=== PATIENT | male | born 1940 | race Caucasian/White ===

== ENCOUNTER 2017-03-04 16:07 | Emergency (ER) | payer MEDICARE, OTHER ==
[2016-12-18 12:19] VITALS: Ht 188 cm; Wt 96.8 kg
[~2017-03-04] VITALS: Ht 188 cm; Wt 96.8 kg
[~2017-03-04 16:07] MED LIST: AMLO2.5T74 PO; ASPI-715 PO; ASPI-757 PO; ASPI-816 PO; BLOO-1318 ASDIRECTED; CA C1TAB9 PO; CALC-703 PO; CHOL200022 PO; CIPR-326 PO; CITA-128 PO; CITA-155 PO; CLAR-1 PO; CLOP75TA PO; CYCL10TA29 PO; DICL100G39 TOP; DICL100G39 TP; DICL1TAB52 PO; DONE23TA PO; DONE23TA3 PO; DONE5TAB29 PO; DONE5TAB33 FT; DUTA1CPM3 PO; FISH OIL 1,2001 CAP PO; FISHOIL PO; FLUT16SP19 NS; GABA-1 PO; GABA-490 PO; GABA-549 PO; GEMF600T91 PO; HUM75/25I SUBQ; HUMALOG SC; HYDR-4309 PO; HYDR2TAB74 PO; IBUP-1618 PO; INDO50CA92 PO; INSU100I24 SQ; INSU100I24 SUBQ; INSU100V24 SQ; IRO150 PO; LANI SC; LANI SQ; LANI SUBQ; LEVO50TA86 PO; LISI-347 PO; LOR5 PO; LOR5/325 PO; LORA10TA2 PO; MELO-149 PO; MELO-150 PO; MELO-207 PO; MEMA10TA18 PO; MEMA28CA PO; MET10 PO; METF-410 PO; METF-420 PO; METO-253 PO; METO50TA19 PO; METOPROLOL ER PO; METR-1 PO; METXL50 PO; MON10 PO; MULT1CAP59 PO; NITR0.4T3 SL; OLME40TA17 PO; OMEG-11 PO; OMEG500C5 PO; OMEG500C7 PO; OMEP-218 PO; OMEP40CA48 PO; ONDA4TAB PO; ONE A DAY PO; PER PO; PHENA200 PO; PRAM0.1225 PO; PRAM0.2524 PO; PRAV20TA66 PO; PRED-1 PO; PROM-110 PO; RAMI10CA72 PO; RAMI5CAP72 PO; RIVA1PAT9 TD; RIVA20TA PO; RIVA3CAP PO; SIMV-42 PO; SPIR25TA78 PO; SULF-198 PO; TRAZ-156 PO; TRAZ50 PO; TRIA15CR40 TP; VALE100C2 PO; VENL25TA29 PO; VENL50TA22 PO
--- NOTE | 2017-03-04 16:11 | ER Report ---
History and Physical Time Seen By MD: 16:11 HPI/ROS CC: Influenza exposure HPI: 76 year old Male with a past medical history of type II diabetes, Alzheimer's, chest pain, gastroenteritis, H. pylori, hepatitis B, pulmonary nodule, Mobitz type II second-degree block, BPH. Patient presents to the emergency department as his was just here and was diagnosed with influenza. Patient has had generalized body aches for 3-4 days. Generalized body aches. No nausea or vomiting. He is eating fine no diarrhea. Patient is not Complaining of chest pain chest pressure, shortness of breath, diaphoresis. Patient with Alzheimer's and it is difficult to get any more pertinent information. ROS: 12 point review of systems essentially negative other than what's mentioned in history of present illness. NURSES AND OLD MEDICAL RECORDS: Reviewed PMH: Reviewed SURGICAL HX: Reviewed FAMILY HX: Noncontributory SOCIAL HX: Patient denies smoking alcohol or illicit drugs. He is escorted by his daughter. VITAL SIGNS: Reviewed CONSTITUTIONAL: 76-year-old male in minimal distress. PHYSICAL EXAM: HEENT: Pupils equal round reactive to light and accommodate, EOMI, tympanic membranes pearly white umbo present with good light reflex. Lips dry mucous membranes moist gums nonbleeding uvula midline and rises equally with phonation, oropharynx noninjected, teeth intact. NECK: Neck supple, thyroid not appreciated, anterior and posterior cervical lymphadenopathy not appreciated. Trachea midline and rises equally with phonation. CARDIAC: S1-S2 regular rate rhythm no murmurs rubs or gallops. LUNGS: Lungs clear bilaterally posteriorly in all osborn. Good air movement. ABDOMEN: Abdomen soft, nondistended, bowel sounds active in all 4 quadrants, no bruits noted, no CVA tenderness. MUSCULOSKELETAL: Strength 5 out of 5 x 4 extremities, no deformities noted. NEUROLOGIC: Patient alert and oriented by 3 Allergies: Coded Allergies: Penicillins (Verified Allergy, Mild, HIVES, 09/21/16) niacin (Verified Allergy, Mild, 09/21/16) Home Meds Active Scripts Insulin Npl/Insulin Lispro (HUMALOG MIX 75-25 KWIKPEN) 100 Unit/1 Ml Insuln.pen , 35 UNIT SUBQ TIDCF for 90 Days, #6 BOX 4 Refills Pt to increase to 36-37 if BS above 150 Prov:WERO GOSS MD 03/04/17 Omeprazole (OMEPRAZOLE) 40 Mg Capsule.dr, 1 CAP PO QDAY for 90 Days, #90 CAP 4 Refills Prov:WERO GOSS MD 03/04/17 Memantine Hcl (NAMENDA XR) 28 Mg Cap.spr.24, 1 CAP PO QDAY, #90 CAP Prov:WERO GOSS MD 03/04/17 Donepezil Hcl (ARICEPT) 23 Mg Tablet, 1 TAB PO QDAY, #90 TAB Prov:WERO GOSS MD 03/04/17 Pramipexole Di-Hcl (MIRAPEX) 0.25 Mg Tablet, 1 TAB PO QHS for 90 Days, #90 TAB 4 Refills Prov:WERO GOSS MD 03/04/17 Pravastatin Sodium (PRAVASTATIN SODIUM) 20 Mg Tablet, 1 TAB PO HS for 90 Days, # 90 TAB 4 Refills Prov:WERO GOSS MD 03/04/17 Reported Medications Blood Sugar Diagnostic (ONE TOUCH ULTRA TEST STRIPS) 1 Each Strip, 1 EACH ASDIRECTED QID Y for morning and before meals, STRIP 12/17/16 Nitroglycerin (NITROGLYCERIN) 0.4 Mg Tab.subl, 1 TAB SL Q5MIN Y for CHEST PAIN May repeat 3 times in 15 min 12/17/16 Multivitamin (MULTIVITAMINS) 1 Each Capsule, 1 EACH PO QDAY 12/17/16 Levothyroxine Sodium (LEVOTHYROXINE SODIUM) 50 Mcg Tablet, 1 TAB PO QDAY 12/17/16 Hydrocodone Bit/Acetaminophen (HYDROCODON-ACETAMINOPHEN 5-325) 1 Each Tablet, 1 EACH PO HS Y for foot pain, TAB 12/17/16 Aspirin (ASPIRIN) 325 Mg Tablet, 1 TAB PO QDAY, TAB 10/20/15 Cholecalciferol (Vitamin D3) (VITAMIN D) 2,000 Unit Tablet, 1 TAB PO DAILY 09/05/15 Fluticasone Prop 50 Mcg Ns (FLONASE 50 MCG NS) 16 Gm [place].susp, 2 SPRAY NS QDAY , BOT 2 sprays per nostril, per day 09/05/15 Discontinued Reported Medications Prednisone 10 Mg Tab (PREDNISONE 10 MG TAB) 10 Mg Tablet, 1 TAB PO QDAY, TAB 1 Refill 01/19/17 Trazodone Hcl (TRAZODONE HCL) 50 Mg Tablet, 1 TAB PO QHS 12/21/16 Citalopram Hydrobromide (CELEXA) 10 Mg Tablet, 1 TAB PO QDAY 12/21/16 Triamcinolone Acetonide 0.1% Cr 15 Gm Tube (TRIAMCINOLONE ACETONIDE 0.1% CREAM) 15 Gm Cream..g., 1 GHANSHYAM TP BID for to affected area, TUBE 12/17/16 Hx Smoking: Yes Smoking Status: Former Smoker Exposure to Second Hand Smoke?: No Hx Substance Use Disorder: No Hx Alcohol Use: No Constitutional Vital Sign - Last 24 Hours 03/04/17 03/04/17 03/04/17 03/04/17 16:14 16:18 16:22 16:30 Temp 98.1 Pulse 87 86 Resp 18 11 B/P (MAP) 117/68 125/76 (92) 117/68 (84) Pulse Ox 92 94 O2 Delivery Room Air 03/04/17 03/04/17 03/04/17 03/04/17 16:37 16:52 17:00 17:05 Pulse 86 ??? Resp 15 B/P (MAP) ???/??? (1665) 115/65 (82) Pulse Ox 93 03/04/17 03/04/17 03/04/17 17:07 17:15 17:22 Pulse 76 74 Resp 15 B/P (MAP) 115/72 (86) Pulse Ox 91 94 Medical Decision Making Data Points Result Diagram: 03/04/17 1630 03/04/17 1630 Laboratory Hematology Test 03/04/17 16:20 03/04/17 16:30 Influenza Virus Type A (PCR) Negative (NEGATIVE) Influenza Virus Type B (PCR) Positive (NEGATIVE) Red Blood Count 4.54 M/uL (4.00-5.60) Mean Corpuscular Volume 93.8 fL (80.0-96.0) Mean Corpuscular Hemoglobin 32.3 pg (26.0-33.0) Mean Corpuscular Hemoglobin Concent 34.4 g/dL (32.0-36.0) Red Cell Distribution Width 13.7 % (11.5-14.5) Mean Platelet Volume 7.9 fL (7.2-11.1) Neutrophils (%) (Auto) 65.6 % (39.4-72.5) Lymphocytes (%) (Auto) 20.7 % (17.6-49.6) Monocytes (%) (Auto) 12.7 % (4.1-12.4) Eosinophils (%) (Auto) 0.4 % (0.4-6.7) Basophils (%) (Auto) 0.6 % (0.3-1.4) Nucleated RBC Relative Count (auto) 0.2 /100WBC Neutrophils # (Auto) 2.3 K/uL (2.0-7.4) Lymphocytes # (Auto) 0.7 K/uL (1.3-3.6) Monocytes # (Auto) 0.5 K/uL (0.3-1.0) Eosinophils # (Auto) 0.0 K/uL (0.0-0.5) Basophils # (Auto) 0.0 K/uL (0.0-0.1) Nucleated RBC Absolute Count (auto) 0.01 K/uL Peripheral Blood Smear No Y/N Sodium Level 138 mmol/L (137-145) Potassium Level 3.7 mmol/L (3.5-5.0) Chloride Level 101 mmol/L (98-107) Carbon Dioxide Level 24 mmol/L (22-30) Blood Urea Nitrogen 13 mg/dl (9-21) Creatinine 1.00 mg/dl (0.66-1.25) Glomerular Filtration Rate Calc > 60.0 Random Glucose 203 mg/dl (75-110) Calcium Level 9.2 mg/dl (8.4-10.2) Total Bilirubin 1.0 mg/dl (0.2-1.3) Aspartate Amino Transf (AST/SGOT) 19 U/L (0-35) Alanine Aminotransferase (ALT/SGPT) 33 U/L (0-56) Alkaline Phosphatase 107 U/L (0-126) Troponin I 0.042 ng/ml Total Protein 6.6 gm/dl (6.3-8.2) Albumin 3.9 g/dl (3.5-5.0) Chemistry Test 03/04/17 16:20 03/04/17 16:30 Influenza Virus Type A (PCR) Negative (NEGATIVE) Influenza Virus Type B (PCR) Positive (NEGATIVE) White Blood Count 3.6 k/uL (4.5-11.0) Red Blood Count 4.54 M/uL (4.00-5.60) Hemoglobin 14.7 g/dL (14.0-18.0) Hematocrit 42.6 % (42.0-52.0) Mean Corpuscular Volume 93.8 fL (80.0-96.0) Mean Corpuscular Hemoglobin 32.3 pg (26.0-33.0) Mean Corpuscular Hemoglobin Concent 34.4 g/dL (32.0-36.0) Red Cell Distribution Width 13.7 % (11.5-14.5) Platelet Count 116 K/uL (150-450) Mean Platelet Volume 7.9 fL (7.2-11.1) Neutrophils (%) (Auto) 65.6 % (39.4-72.5) Lymphocytes (%) (Auto) 20.7 % (17.6-49.6) Monocytes (%) (Auto) 12.7 % (4.1-12.4) Eosinophils (%) (Auto) 0.4 % (0.4-6.7) Basophils (%) (Auto) 0.6 % (0.3-1.4) Nucleated RBC Relative Count (auto) 0.2 /100WBC Neutrophils # (Auto) 2.3 K/uL (2.0-7.4) Lymphocytes # (Auto) 0.7 K/uL (1.3-3.6) Monocytes # (Auto) 0.5 K/uL (0.3-1.0) Eosinophils # (Auto) 0.0 K/uL (0.0-0.5) Basophils # (Auto) 0.0 K/uL (0.0-0.1) Nucleated RBC Absolute Count (auto) 0.01 K/uL Peripheral Blood Smear No Y/N Glomerular Filtration Rate Calc > 60.0 Calcium Level 9.2 mg/dl (8.4-10.2) Total Bilirubin 1.0 mg/dl (0.2-1.3) Aspartate Amino Transf (AST/SGOT) 19 U/L (0-35) Alanine Aminotransferase (ALT/SGPT) 33 U/L (0-56) Alkaline Phosphatase 107 U/L (0-126) Troponin I 0.042 ng/ml Total Protein 6.6 gm/dl (6.3-8.2) Albumin 3.9 g/dl (3.5-5.0) EKG/Imaging Imaging Chest x-ray: Impression: No cardiopulmonary disease. Chronic changes. ED Course/Re-evaluation ED Course Patient positive for influenza B. It has been 3-4 days therefore Tamiflu will not be given. ECG shows no acute changes. Patient is with malaise he did receive a liter normal saline. Other labs are within normal limits. Patient did have a near syncopal episode. Patient did not hit his head. No CT of the brain was warranted. Patient is to follow-up with PCP Dr. Goss. I and the staff wanted to thank you for allowing us to take care of your needs today in the emergency department at [facility]. We have tried to answer all of your questions and concerns. Please feel free to return to the emergency department for any further concerns or unanswered questions. Re-evaluation Medical decision-making including but not excluded influenza B as patient was exposed to be by his , pneumonia, gastroenteritis. Decision to Disposition Date: Mar 04, 2017 Decision to Disposition Time: 17:58 Depart Departure Latest Vital Signs Vital Signs Date Time Temp Pulse Resp B/P (MAP) Pulse Ox O2 Delivery O2 Flow Rate FiO2 03/04/17 17:22 74 15 94 03/04/17 17:15 115/72 (86) 03/04/17 16:14 98.1 Room Air Impression: Primary Impression: Influenza B Condition: Condition Unchanged Disposition: HOME OR SELF-CARE Referrals: WERO GOSS MD (PCP) Patient Instructions: H1N1 Influenza (ED) Additional Instructions: Had influenza B. It's been over 24 hours therefore Tamiflu be effective. EKG has not changed from previous EKG. I discussed the case with Dr. Goss. Follow up with her in her office. Chest x-ray did not show any pneumonia. I and the staff wanted to thank you for allowing us to take care of your needs today in the emergency department at [facility]. We have tried to answer all of your questions and concerns. Please feel free to return to the emergency department for any further concerns or unanswered questions. LOVE GONZALEZ MD Mar 04, 2017 16:11
[2017-03-04 16:45] LABS: PLATELET COUNT, AUTOMATED 116 K/uL (150-450)
[2017-03-04] MEDS ORDERED: NS(*) 0.9% 1000 ML BAG 1,000 ML IV ONE (16:45)
--- NOTE | 2017-03-04 17:52 | RADIOLOGY IMAGING REPORT ---
FAC[place] [facility] [place]IENT NAME: Pato Gutierrez : 1940 MR: [id number] V: [id number] EXAM DATE: ORDERING PHYSICIAN: LOVE GONZALEZ TECHNOLOGIST: Location: [facility] [place] Patient: Pato Gutierrez : 1940 Visit/Account:[id number] Date of Sevice: 03/04/2017 CHEST SINGLE AP Provided history: dizziness Additional pertinent history: none COMPARISON STUDIES: 12/17/16 FINDINGS: Support lines and tubes: None. Lungs / pleura / wilber: There are mild coarse increased markings in the lung bases, similar to prior exam. No lobar infiltrate or effusion. Heart / mediastinum /vessels: Negative Nodules / masses: None significant Bones / body wall: Moderate size superior surface spur over the right AC joint. Lower neck / Upper abdomen: Negative IMPRESSION: Stable chronic bibasilar changes. No new acute cardiopulmonary disease. Report Dictated By: Jelani Weiss MD at 03/04/2017 5:47 PM Report E-Signed By: Jelani Weiss MD at 03/04/2017 5:48 PM WSN:[id number]
--- NOTE | 2017-03-04 23:09 | EKG ---
FACILITY: [facility] - [place] PATIENT NAME: DANIELLE REICH : [id number] MR: [id number] V: [id number] EXAM DATE: ORDERING PHYSICIAN: LOVE GONZALEZ TECHNOLOGIST: Test Reason : abd pain Blood Pressure : / mmHG Vent. Rate : 075 BPM Atrial Rate : 075 BPM P-R Int : 258 ms QRS Dur : 092 ms QT Int : 412 ms P-R-T Axes : 043 037 041 degrees QTc Int : 460 ms Sinus rhythm with 1st degree AV block Otherwise normal ECG When compared with ECG of 17-DEC-2016 18:41, aberrant conduction is no longer present Confirmed by ABDI FRASER ([id number]) on 03/05/2017 6:32:12 AM Referred By: Confirmed By:ABDI FRASER
== END 2017-03-04 18:38 | disposition home or self-care (01) ==
LOC: ER 16:22
DX: J11.1 Influenza due to unidentified influenza virus with other respiratory manifestations (principal)
CPT/HCPCS: 71045; 84484; 85025; 87502; 93005; 96360; 99284; J7030; 82040; 82247; 82310; 82374; 82435; 82565; 82947; 84075; 84132; 84155; 84295; 84450; 84460; 84520

== ENCOUNTER → 2017-03-25 | Outpatient (CLI) | payer MEDICARE, OTHER ==
[2016-12-18 12:19] VITALS: BMI 27.3
[~2017-03-25] MED LIST changes: +MEMA7CAP PO
== END ==
LOC: LAB 09:24
PROVIDERS: ATTEND Family Medicine
DX: M35.3 Polymyalgia rheumatica (principal); E11.9 Type 2 diabetes mellitus without complications; E03.9 Hypothyroidism, unspecified
CPT/HCPCS: 36415; 83036; 84443; 85651

== ENCOUNTER 2017-04-04 13:48 | Outpatient (RCR) | payer MEDICARE, OTHER ==
[2016-12-18 12:19] VITALS: BMI 27.3
--- NOTE | 2017-04-04 15:13 | PT INITIAL EVALUATION ---
MEDICAL DIAGNOSIS: M79.604 Pain in B LE, R53.1 Weakness, M35.3 PMR TREATMENT DIAGNOSIS: Same DATE OF ONSET: 02/15/18 SUBJECTIVE: Pato "Xochitl Gutierrez presents to PT for lower leg and quad ache since just after , 2016. He has Polymyalgia Rheumatica. Giovanny has moderate dementia and his son, Carlos, reports that Giovanny is very sedentary. Giovanny and his may move to [place] to be with Carlos. Pain location is anterior and posterior lower legs, knees, quads and described as ache. Pain scale is 1 on a ten point pain scale. Pain is worse with sitting too much and better with movement. REHAB PROBLEM LIST: Increased Pain Impaired Cognition Decreased ROM Impaired Bed Mobility Decreased Strength Decreased Endurance Decreased Balance Decreased Mobility Decreased Gait PREVIOUS MEDICAL HISTORY: B AMY, R quad tendon tear x2, dementia, sleep apnea, DM II, sinus infections. 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 OBJECTIVE: Posture: Flexed trunk, ER L LE 35 degrees, flattened lumbar curve. ROM: B knee AROM WNL, R knee painful end ROM flexion, no crepitus. Ankle AROM DF R -10 deg., L 0 degrees. Hamstrings, hip flexors are tight. Strength: R LE 2+/5, L LE 3-/5. Palpation: No tremor, negative clonus at the ankles. Mobility: Independent sit<>stand, rolls slowly with low bridging with mat mobility. Gait: Timed up and go 53", 42", 38" with RW, elevated chair height 25 inches. Giovanny ambulates with a flat foot gait pattern, RW, flexed trunk. Balance: Double limb support only. Other Objective Findings: O2/HR with seated exercise 95%, 84. ASSESSMENT: Giovanny Gutierrez presents with LE pain from sedentary lifestyle, dementia. He had less leg pain after 17 minutes of LE exercise, but reported fatigue. He' s an excellent candidate to reduce pain with exercise. We'll build a home program his son can do with Giovanny if they do move. Short Term Goals/Patient's Goals: 4 weeks: Giovanny denies LE pain at rest and with ambulation, family is educated on HEP. PLAN: Patient to be seen for Strengthening/condition, Range of Motion, Stretching, Gait Trg/Balance Trg, Home Exercise Program 3x/Week for 4 Weeks Thank you for this referral. If you have any questions, comments, or concerns about this report or plan, please contact me at . [facility]
--- NOTE | 2017-04-06 08:48 | PT PLAN OF CARE ---
Physician: Dr. Alayna Schmitt Patient is being seen: once Therapist: Marbella Garcia, PT Medical Diagnosis: M79.604 Pain in B LE, R53.1 Weakness, M35.3 PMR Treatment Diagnosis: Same Date of Onset: 02/15/18 Date of Initial Evaluation: 04/04/17 Date patient was last seen: 04/04/17 Number of treatments: 1 Number of cancellations/No shows: 1 INTERVENTIONS: Strengthening/condition Range of Motion Stretching Gait Trg/Balance Trg Home Exercise Program GOALS/PATIENT'S GOAL: 4 weeks: Giovanny denies LE pain at rest and with ambulation, family is educated on HEP. Patient Compliance: Good Prognosis: Excellent Reasons for discontinuing therapy: Giovanny was admitted to [facility] on 04/06/17 for weakness. I will DC outpatient PT. Thank you. TAYLOR
== END 2017-04-04 18:00 | disposition home or self-care (01) ==
LOC: PT 13:48
PROVIDERS: ATTEND Family Medicine
DX: M79.604 Pain in right leg (principal); R53.1 Weakness; M35.3 Polymyalgia rheumatica; F03.90 Unspecified dementia, unspecified severity, without behavioral disturbance, psychotic disturbance, mood disturbance, and anxiety; G47.30 Sleep apnea, unspecified; E11.9 Type 2 diabetes mellitus without complications; Z96.643 Presence of artificial hip joint, bilateral
CPT/HCPCS: 97162

== ENCOUNTER 2017-04-05 21:33 | Observation (INO) | payer MEDICARE, OTHER ==
[~2017-04-05] VITALS: Ht 188 cm; Wt 92.7 kg
--- NOTE | 2017-04-05 21:27 | ER Report ---
History and Physical Time Seen By MD: 21:26 HPI/ROS CHIEF COMPLAINT: Dizziness HISTORY OF PRESENT ILLNESS: 76-year-old male brought in by EMS from home with dizziness for several hours. Patient's been able to stand up and walk. EMS tried to perform orthostatic vital signs at home and stated when they stood the patient up to do his blood pressure. He became wobbly and sat back down. Patient denies headache, blurry vision, fever, chills or illness. Patient denies chest pain or shortness of breath. He is in good spirits and joking with paramedics and staff. Patient thought his blood pressure might be elevated. EMS documented a stable blood pressure 142/89. REVIEW OF SYSTEMS: Respiratory: No cough, no dyspnea. Cardiovascular: No chest pain, no palpitations. Gastrointestinal: No vomiting, no abdominal pain. Musculoskeletal: No back pain. Allergies: Coded Allergies: Penicillins (Verified Allergy, Mild, HIVES, 04/05/17) niacin (Verified Allergy, Mild, 04/05/17) Home Meds Active Scripts Memantine Hcl (NAMENDA XR) 7 Mg Cap.spr.24, 7-21 MG PO DAILY for 30 Days, #84 CAP take 3 caps once daily for 2 wks, take 2 caps once daily for 2 wks, take 1 caps once daily for 2 wks Prov:WERO GOSS MD 03/25/17 Fluticasone Prop 50 Mcg Ns (FLONASE 50 MCG NS) 16 Gm [place].susp, 2 SPRAYS NS QDAY for 30 Days, #1 BOT Prov:WERO GOSS MD 03/25/17 Insulin Npl/Insulin Lispro (HUMALOG MIX 75-25 KWIKPEN) 100 Unit/1 Ml Insuln.pen , 35 UNIT SUBQ TIDCF for 90 Days, #6 BOX 4 Refills Pt to increase to 36-37 if BS above 150 Prov:WERO GOSS MD 03/04/17 Omeprazole (OMEPRAZOLE) 40 Mg Capsule.dr, 1 CAP PO QDAY for 90 Days, #90 CAP 4 Refills Prov:WERO GOSS MD 03/04/17 Donepezil Hcl (ARICEPT) 23 Mg Tablet, 1 TAB PO QDAY, #90 TAB Prov:WERO GOSS MD 03/04/17 Pramipexole Di-Hcl (MIRAPEX) 0.25 Mg Tablet, 1 TAB PO QHS for 90 Days, #90 TAB 4 Refills Prov:WERO GOSS MD 03/04/17 Pravastatin Sodium (PRAVASTATIN SODIUM) 20 Mg Tablet, 1 TAB PO HS for 90 Days, # 90 TAB 4 Refills Prov:WERO GOSS MD 03/04/17 Reported Medications Blood Sugar Diagnostic (ONE TOUCH ULTRA TEST STRIPS) 1 Each Strip, 1 EACH ASDIRECTED QID Y for morning and before meals, STRIP 12/17/16 Nitroglycerin (NITROGLYCERIN) 0.4 Mg Tab.subl, 1 TAB SL Q5MIN Y for CHEST PAIN May repeat 3 times in 15 min 12/17/16 Multivitamin (MULTIVITAMINS) 1 Each Capsule, 1 EACH PO QDAY 12/17/16 Levothyroxine Sodium (LEVOTHYROXINE SODIUM) 50 Mcg Tablet, 1 TAB PO QDAY 12/17/16 Aspirin (ASPIRIN) 325 Mg Tablet, 1 TAB PO QDAY, TAB 10/20/15 Cholecalciferol (Vitamin D3) (VITAMIN D) 2,000 Unit Tablet, 1 TAB PO DAILY 09/05/15 Fluticasone Prop 50 Mcg Ns (FLONASE 50 MCG NS) 16 Gm [place].susp, 2 SPRAY NS QDAY , BOT 2 sprays per nostril, per day 09/05/15 Past Medical/Surgical History Past medical history dementia, diabetic polyneuropathy, hyperlipidemia, sleep apnea, not using seat, history of sinus infections, history of leg cramps, diabetes type II, hepatitis, shingles, peripheral vascular disease, status post stenting. Past surgical history hammer toe correction, left 2nd toe arthroplasty, right open knee quad tendon repair, vascular stents for PAD cystoscopy Reviewed Nurses Notes: Yes Old Medical Records Reviewed: Yes Hx Smoking: Yes Smoking Status: Former Smoker Exposure to Second Hand Smoke?: No Hx Substance Use Disorder: No Hx Alcohol Use: No Constitutional Vital Sign - Last 24 Hours 04/05/17 04/05/17 04/05/17 04/05/17 21:27 21:36 21:37 22:00 Temp 98.8 98.8 Pulse 65 63 78 63 Resp 18 18 18 16 B/P (MAP) 161/95 161/95 (117) 164/121 (135) Pulse Ox 96 96 95 95 O2 Delivery Room Air Room Air Room Air 04/05/17 04/05/17 04/05/17 04/05/17 22:15 22:30 23:15 23:30 Pulse 66 63 73 71 Resp 16 17 6 18 Pulse Ox 89 90 97 92 04/05/17 04/06/17 04/06/17 04/06/17 23:45 00:45 01:00 02:00 Pulse 66 69 70 ??? Resp 11 9 0 Pulse Ox 97 91 04/06/17 04/06/17 04/06/17 04/06/17 02:15 02:45 02:57 03:00 Pulse ? 73 B/P (MAP) 158/84 (108) Pulse Ox 93 93 Physical Exam General Appearance: The patient is alert, has no immediate need for airway protection and no signs of toxicity. Alert and oriented, pleasant, cooperative , no acute distress Eyes: Pupils equal and round no pallor or injection. ENT, Mouth: Mucous membranes are moist. Respiratory: There are no retractions, lungs are clear to auscultation. Cardiovascular: Regular rate and rhythm. Gastrointestinal: Abdomen is soft and non tender, no masses, bowel sounds normal. Neurological: Alert and oriented 3, cranial nerves II through XII intact motor 5/5 all groups. Sensory intact to light touch 4., Gait unsteady. On standing Skin: Warm and dry, no rashes. Musculoskeletal: Neck is supple non tender. No bruits Extremities are nontender, nonswollen and have full range of motion. No edema, no calf tenderness DIFFERENTIAL DIAGNOSIS: After history and physical exam differential diagnosis was considered for vertigo including but not limited to peripheral causes such as benign positional vertigo, Mnire's disease, viral labyrinthitis and central causes such as CVA, and tumor. Medical Decision Making Data Points Result Diagram: 04/05/17219904/05/172199 Laboratory Hematology Test 04/05/17 22:00 04/05/17 23:04 04/06/17 00:00 Red Blood Count 4.20 M/uL (4.00-5.60) Mean Corpuscular Volume 94.0 fL (80.0-96.0) Mean Corpuscular Hemoglobin 31.9 pg (26.0-33.0) Mean Corpuscular Hemoglobin Concent 33.9 g/dL (32.0-36.0) Red Cell Distribution Width 14.8 % (11.5-14.5) Mean Platelet Volume 8.6 fL (7.2-11.1) Neutrophils (%) (Auto) 65.0 % (39.4-72.5) Lymphocytes (%) (Auto) 23.4 % (17.6-49.6) Monocytes (%) (Auto) 8.5 % (4.1-12.4) Eosinophils (%) (Auto) 1.7 % (0.4-6.7) Basophils (%) (Auto) 1.4 % (0.3-1.4) Nucleated RBC Relative Count (auto) 0.1 /100WBC Neutrophils # (Auto) 4.1 K/uL (2.0-7.4) Lymphocytes # (Auto) 1.5 K/uL (1.3-3.6) Monocytes # (Auto) 0.5 K/uL (0.3-1.0) Eosinophils # (Auto) 0.1 K/uL (0.0-0.5) Basophils # (Auto) 0.1 K/uL (0.0-0.1) Nucleated RBC Absolute Count (auto) 0.01 K/uL Sodium Level 138 mmol/L (137-145) Potassium Level 4.2 mmol/L (3.5-5.0) Chloride Level 100 mmol/L (98-107) Carbon Dioxide Level 24 mmol/L (22-30) Blood Urea Nitrogen 20 mg/dl (9-21) Creatinine 1.00 mg/dl (0.66-1.25) Glomerular Filtration Rate Calc > 60.0 Random Glucose 141 mg/dl (75-110) Calcium Level 9.5 mg/dl (8.4-10.2) Total Bilirubin 0.3 mg/dl (0.2-1.3) Aspartate Amino Transf (AST/SGOT) 18 U/L (0-35) Alanine Aminotransferase (ALT/SGPT) 30 U/L (0-56) Alkaline Phosphatase 93 U/L (0-126) Troponin I < 0.012 ng/ml Total Protein 7.2 gm/dl (6.3-8.2) Albumin 4.0 g/dl (3.5-5.0) Urine Color Yellow Urine Clarity Clear Urine pH 5.0 pH (4.8-9.5) Urine Specific [place] 1.012 Urine Protein Negative mg/dL (NEGATIVE) Urine Glucose (UA) Negative mg/dL (NEGATIVE) Urine Ketones Negative mg/dL (NEGATIVE) Urine Blood Negative (NEGATIVE) Urine Nitrite Negative (NEGATIVE) Urine Bilirubin Negative (NEGATIVE) Urine Urobilinogen Negative mg/dL (0.2-1.9) Urine Leukocyte Esterase Negative (NEGATIVE) Urine RBC None /HPF (0-2/HPF) Urine WBC 1 /HPF (0-5/HPF) Urine Squamous Epithelial Cells Few /LPF (</=FEW) Urine Bacteria Negative /HPF (NONE-FEW) Urine Mucus None /HPF (NONE-FEW) Erythrocyte Sedimentation Rate 49 mm/HOUR (0-20) Chemistry Test 04/05/17 22:00 04/05/17 23:04 04/06/17 00:00 White Blood Count 6.2 k/uL (4.5-11.0) Red Blood Count 4.20 M/uL (4.00-5.60) Hemoglobin 13.4 g/dL (14.0-18.0) Hematocrit 39.5 % (42.0-52.0) Mean Corpuscular Volume 94.0 fL (80.0-96.0) Mean Corpuscular Hemoglobin 31.9 pg (26.0-33.0) Mean Corpuscular Hemoglobin Concent 33.9 g/dL (32.0-36.0) Red Cell Distribution Width 14.8 % (11.5-14.5) Platelet Count 155 K/uL (150-450) Mean Platelet Volume 8.6 fL (7.2-11.1) Neutrophils (%) (Auto) 65.0 % (39.4-72.5) Lymphocytes (%) (Auto) 23.4 % (17.6-49.6) Monocytes (%) (Auto) 8.5 % (4.1-12.4) Eosinophils (%) (Auto) 1.7 % (0.4-6.7) Basophils (%) (Auto) 1.4 % (0.3-1.4) Nucleated RBC Relative Count (auto) 0.1 /100WBC Neutrophils # (Auto) 4.1 K/uL (2.0-7.4) Lymphocytes # (Auto) 1.5 K/uL (1.3-3.6) Monocytes # (Auto) 0.5 K/uL (0.3-1.0) Eosinophils # (Auto) 0.1 K/uL (0.0-0.5) Basophils # (Auto) 0.1 K/uL (0.0-0.1) Nucleated RBC Absolute Count (auto) 0.01 K/uL Glomerular Filtration Rate Calc > 60.0 Calcium Level 9.5 mg/dl (8.4-10.2) Total Bilirubin 0.3 mg/dl (0.2-1.3) Aspartate Amino Transf (AST/SGOT) 18 U/L (0-35) Alanine Aminotransferase (ALT/SGPT) 30 U/L (0-56) Alkaline Phosphatase 93 U/L (0-126) Troponin I < 0.012 ng/ml Total Protein 7.2 gm/dl (6.3-8.2) Albumin 4.0 g/dl (3.5-5.0) Urine Color Yellow Urine Clarity Clear Urine pH 5.0 pH (4.8-9.5) Urine Specific [place] 1.012 Urine Protein Negative mg/dL (NEGATIVE) Urine Glucose (UA) Negative mg/dL (NEGATIVE) Urine Ketones Negative mg/dL (NEGATIVE) Urine Blood Negative (NEGATIVE) Urine Nitrite Negative (NEGATIVE) Urine Bilirubin Negative (NEGATIVE) Urine Urobilinogen Negative mg/dL (0.2-1.9) Urine Leukocyte Esterase Negative (NEGATIVE) Urine RBC None /HPF (0-2/HPF) Urine WBC 1 /HPF (0-5/HPF) Urine Squamous Epithelial Cells Few /LPF (</=FEW) Urine Bacteria Negative /HPF (NONE-FEW) Urine Mucus None /HPF (NONE-FEW) Erythrocyte Sedimentation Rate 49 mm/HOUR (0-20) Urinalysis Test 04/05/17 23:04 Urine Color Yellow Urine Clarity Clear Urine pH 5.0 pH (4.8-9.5) Urine Specific [place] 1.012 Urine Protein Negative mg/dL (NEGATIVE) Urine Glucose (UA) Negative mg/dL (NEGATIVE) Urine Ketones Negative mg/dL (NEGATIVE) Urine Blood Negative (NEGATIVE) Urine Nitrite Negative (NEGATIVE) Urine Bilirubin Negative (NEGATIVE) Urine Urobilinogen Negative mg/dL (0.2-1.9) Urine Leukocyte Esterase Negative (NEGATIVE) Urine RBC None /HPF (0-2/HPF) Urine WBC 1 /HPF (0-5/HPF) Urine Squamous Epithelial Cells Few /LPF (</=FEW) Urine Bacteria Negative /HPF (NONE-FEW) Urine Mucus None /HPF (NONE-FEW) EKG/Imaging EKG Interpretation 12 lead EK Rhythm: normal sinus rhythm with first-degree AV block Speed: Left axis deviation QRS: normal ST segments: normal, no evidence of ischemia or dysrhythmia, comparison to previous EKG dated 03/04/17, no significant change Imaging X-ray: Single view portable chest x-ray was obtained. I viewed the images myself on the PACS system. My interpretation of the images is: No infiltrate, no effusion, normal mediastinum. The radiologist interpretation had no clinically significant variation from this interpretation. Results: CT scan of the head was obtained. The results of the study are CT Head without contrast Indication: Dizziness. Comparison: CT 11/08/2012. Technique: Axial CT images were obtained through the brain from the skull base to the vertex without administration of IV contrast. One of the following dose optimization techniques was utilized in the performance of this exam: Automated exposure control; adjustment of the mA and/or kV according to the patient's size ; or use of an iterative reconstruction technique. Specific details can be referenced in the facility's radiology CT exam operational policy. Findings: No evidence of mass, mass effect, or midline shift. No acute intracranial hemorrhage or acute territorial infarction. Mild cerebral volume loss. Moderate intracranial atherosclerosis. Skull is nonacute. Globes and orbits are normal. The visualized paranasal sinuses and mastoid air spaces are clear. IMPRESSION: Senescent changes with no acute intracranial abnormality. The study was read by the radiologist. I viewed the images myself on the PACS system. Results: MRI scan of the brain was obtained. The results of the study are Examination: MR brain without contrast History: Dizziness, confusion Comparison: Head CT April 05, 2017 Technique: Multiplane MR imaging was performed through the brain without contrast. Findings: Diffusion: None Ventricles: Ex vacuo dilatation. Midline shift: None Extraaxial fluid: None. Midline craniocervical structures: Normal Parenchyma: Mild to moderate atrophy. A few periventricular, deep and juxtacortical white matter high signal foci. Vascular flow voids: The right vertebral artery flow-void is mildly hyperintense. Orbits and paranasal sinuses: Small left maxillary sinus mucous retention cyst. Other: Small right mastoid effusion. Impression: 1. No acute infarct. 2. Mild chronic small vessel ischemic change. 3. Mildly hyperintense right vertebral artery flow-void may reflect an underlying stenosis or age-indeterminate occlusion. No acute parenchymal ischemia to suggest this represents acute occlusion. Hyperintense flow voids can additionally be seen in the setting of turbulent blood or sluggish flow related to proximal stenoses or atherosclerotic disease. CT or MR angiogram could be utilized for further evaluation as needed. The study was read by the radiologist. I viewed the images myself on the PACS system. ED Course/Re-evaluation ED Course Patient was admitted to an examination room. H&P was done. The differential diagnoses was considered. Patient with dizziness. He is unsteady when he attempts to stand. He describes a vertiginous sensation. He denies near- syncope. He is in good spirits. He denies recent illness or symptoms. When EMS attempted orthostatics. He is unsteady and sits back down. Patient was medicated with meclizine and diagnostic evaluation was undertaken all of which was unremarkable. Head CT was negative. Patient continued to have unsteadiness. He was medicated with Valium 2 mg and an MRI of the brain was performed to rule out occult CVA. His case was discussed with hospitalist, Dr. Ching since he is unable stand and walk to leave the emergency department. His other history is significant for PMR. He's had an elevated sedimentation rate, I am suspicious he has PMR with pelvic or weakness and he is unsteady when he stands. 04/06/2017 12:52:27 am case discussed with Dr. Jules Meyers for consideration of admission. Decision to Disposition Date: Apr 06, 2017 Decision to Disposition Time: 00:52 Depart Departure Latest Vital Signs Vital Signs Date Time Temp Pulse Resp B/P (MAP) Pulse Ox O2 Delivery O2 Flow Rate FiO2 04/06/17 03:00 73 93 04/06/17 02:57 158/84 (108) 04/06/17 01:00 0 04/05/17 21:37 Room Air 04/05/17 21:36 98.8 Impression: Primary Impression: Vertigo Additional Impressions: Unsteady gait PMR (polymyalgia rheumatica) Elevated sedimentation rate Condition: Improved Disposition: Admitted from ER Referrals: WERO GOSS MD (PCP) Problem Qualifiers GINA PULIDO DO Apr 05, 2017 21:27
[2017-04-05] MEDS ORDERED: NS(*) 0.9% 1000 ML BAG 1,000 ML IV ONE (21:34)
[2017-04-05] MEDS ORDERED: ONDANSETRON 4 MG/2 ML VIAL IVP ONE (21:35)
[2017-04-05] MEDS ORDERED: MECLIZINE HCL 25 MG TAB PO ONE (21:35)
--- NOTE | 2017-04-05 22:00 | EKG ---
FACILITY: [facility] - [place] PATIENT NAME: DANIELLE REICH : [id number] MR: [id number] V: [id number] EXAM DATE: ORDERING PHYSICIAN: GINA PULIDO TECHNOLOGIST: JOY Test Reason : DIZZINESS Blood Pressure : / mmHG Vent. Rate : 064 BPM Atrial Rate : 064 BPM P-R Int : 282 ms QRS Dur : 088 ms QT Int : 406 ms P-R-T Axes : 041 -34 035 degrees QTc Int : 418 ms Sinus rhythm with 1st degree AV block Left axis deviation Abnormal ECG Confirmed by TOMAS NIX ([id number]) on 04/06/2017 1:59:02 PM Referred By: Confirmed By:TOMAS NIX
[2017-04-05 22:10] LABS: PLATELET COUNT, AUTOMATED 155 K/uL (150-450)
--- NOTE | 2017-04-05 23:24 | RADIOLOGY IMAGING REPORT ---
FACILITY: [facility] PATIENT NAME: Pato Gutierrez : 1940 MR: [id number] V: [id number] EXAM DATE: ORDERING PHYSICIAN: GINA PULIDO TECHNOLOGIST: Location: [facility] Patient: Pato Gutierrez : 1940 Visit/Account:[id number] Date of Sevice: 04/05/2017 CT Head without contrast Indication: Dizziness. Comparison: CT 11/08/2012. Technique: Axial CT images were obtained through the brain from the skull base to the vertex without administration of IV contrast. One of the following dose optimization techniques was utilized in th e performance of this exam: Automated exposure control; adjustment of the mA and/or kV according to t he patient's size; or use of an iterative reconstruction technique. Specific details can be referen yung in the facility's radiology CT exam operational policy. Findings: No evidence of mass, mass effect, or midline shift. No acute intracranial hemorrhage or acute territorial infarction. Mild cerebral volume loss. Moderate intracranial atherosclerosis. Skull is nonacute. Globes and orbits are normal. The visualized paranasal sinuses and mastoid air spaces are clear. IMPRESSION: Senescent changes with no acute intracranial abnormality. Report Dictated By: Edson Joel MD at 04/05/2017 11:16 PM Report E-Signed By: Edson Joel MD at 04/05/2017 11:20 PM WSN:[id number]
--- NOTE | 2017-04-05 23:25 | RADIOLOGY IMAGING REPORT ---
FACILITY: [facility] [place] PATIENT NAME: Pato Gutierrez : 1940 MR: [id number] V: [id number] EXAM DATE: ORDERING PHYSICIAN: GINA PULIDO TECHNOLOGIST: Location: [facility] [place] Patient: Pato Gutierrez : 1940 Visit/Account:[id number] Date of Sevice: 04/05/2017 SINGLE AP RADIOGRAPH OF THE CHEST 04/05/2017 9:34 PM. INDICATION: Dizzy. COMPARISON: 03/04/2017. FINDINGS: Lungs are well-expanded. There is no consolidation. No pleural effusion or pneumothorax. Heart size i s normal. IMPRESSION: No acute abnormality. Report Dictated By: Edson Joel MD at 04/05/2017 11:20 PM Report E-Signed By: Edson Joel MD at 04/05/2017 11:21 PM WSN:[id number]
[2017-04-05] MEDS ORDERED: DIAZEPAM 2 MG TAB PO ONE (23:45)
--- NOTE | 2017-04-06 02:44 | RADIOLOGY IMAGING REPORT ---
FACILITY: [facility] - [place] PATIENT NAME: Pato Gutierrez : 1940 MR: [id number] V: [id number] EXAM DATE: ORDERING PHYSICIAN: GINA PULIDO TECHNOLOGIST: Location: [facility] Patient: Pato Gutierrez : 1940 Visit/Account:[id number] Date of Sevice: 04/05/2017 Examination: MR brain without contrast History: Dizziness, confusion Comparison: Head CT April 05, 2017 Technique: Multiplane MR imaging was performed through the brain without contrast. Findings: Diffusion: None Ventricles: Ex vacuo dilatation. Midline shift: None Extraaxial fluid: None. Midline craniocervical structures: Normal Parenchyma: Mild to moderate atrophy. A few periventricular, deep and juxtacortical white matter high signal foci. Vascular flow voids: The right vertebral artery flow-void is mildly hyperintense. Orbits and paranasal sinuses: Small left maxillary sinus mucous retention cyst. Other: Small right mastoid effusion. Impression: 1. No acute infarct. 2. Mild chronic small vessel ischemic change. 3. Mildly hyperintense right vertebral artery flow-void may reflect an underlying stenosis or age-ind eterminate occlusion. No acute parenchymal ischemia to suggest this represents acute occlusion. Hyper intense flow voids can additionally be seen in the setting of turbulent blood or sluggish flow relate d to proximal stenoses or atherosclerotic disease. CT or MR angiogram could be utilized for further evaluation as needed. Report Dictated By: Landen Chand MD at 04/06/2017 2:30 AM Report E-Signed By: Landen Chand MD at 04/06/2017 2:39 AM WSN:[id number]
[2017-04-06 03:36] VITALS: BP 144/93
[2017-04-06] MEDS ORDERED: INFLUENZA VIRUS VAC 0.5 ML SYR IM ONLY ONE (06:35)
--- NOTE | 2017-04-06 06:57 | History & Physical ---
History of Present Illness History of Present Illness 76yo male with a h/o dementia and PMR who was brought to the ER for inability to stand or walk. He was in his normal state of health until a couple of hours prior to coming to the ER. He had much difficulty with standing and couldn't walk. The patient was without any focal complaints. In the ER, he continued to have the same problems. He was reportedly globally weak in the LE and core without any focal deficits. History Problems: (1) PMR (polymyalgia rheumatica) Status: Chronic (2) Alzheimers disease Status: Chronic (3) Atrial fibrillation Status: Chronic (4) Essential hypertension Status: Chronic (5) DM2 (diabetes mellitus, type 2) Status: Chronic (6) Diabetes, polyneuropathy Status: Chronic (7) Peripheral vascular disease Status: Chronic Home Meds Active Scripts Memantine Hcl (NAMENDA XR) 7 Mg Cap.spr.24, 7-21 MG PO DAILY for 30 Days, #84 CAP take 3 caps once daily for 2 wks, take 2 caps once daily for 2 wks, take 1 caps once daily for 2 wks Prov:WERO GOSS MD 03/25/17 Fluticasone Prop 50 Mcg Ns (FLONASE 50 MCG NS) 16 Gm [place].susp, 2 SPRAYS NS QDAY for 30 Days, #1 BOT Prov:WERO GOSS MD 03/25/17 Insulin Npl/Insulin Lispro (HUMALOG MIX 75-25 KWIKPEN) 100 Unit/1 Ml Insuln.pen , 35 UNIT SUBQ TIDCF for 90 Days, #6 BOX 4 Refills Pt to increase to 36-37 if BS above 150 Prov:WERO GOSS MD 03/04/17 Omeprazole (OMEPRAZOLE) 40 Mg Capsule.dr, 1 CAP PO QDAY for 90 Days, #90 CAP 4 Refills Prov:WERO GOSS MD 03/04/17 Donepezil Hcl (ARICEPT) 23 Mg Tablet, 1 TAB PO QDAY, #90 TAB Prov:WERO GOSS MD 03/04/17 Pramipexole Di-Hcl (MIRAPEX) 0.25 Mg Tablet, 1 TAB PO QHS for 90 Days, #90 TAB 4 Refills Prov:WERO GOSS MD 03/04/17 Pravastatin Sodium (PRAVASTATIN SODIUM) 20 Mg Tablet, 1 TAB PO HS for 90 Days, # 90 TAB 4 Refills Prov:WERO GOSS MD 03/04/17 Reported Medications Blood Sugar Diagnostic (ONE TOUCH ULTRA TEST STRIPS) 1 Each Strip, 1 EACH ASDIRECTED QID Y for morning and before meals, STRIP 12/17/16 Nitroglycerin (NITROGLYCERIN) 0.4 Mg Tab.subl, 1 TAB SL Q5MIN Y for CHEST PAIN May repeat 3 times in 15 min 12/17/16 Multivitamin (MULTIVITAMINS) 1 Each Capsule, 1 EACH PO QDAY 12/17/16 Levothyroxine Sodium (LEVOTHYROXINE SODIUM) 50 Mcg Tablet, 1 TAB PO QDAY 12/17/16 Aspirin (ASPIRIN) 325 Mg Tablet, 1 TAB PO QDAY, TAB 10/20/15 Cholecalciferol (Vitamin D3) (VITAMIN D) 2,000 Unit Tablet, 1 TAB PO DAILY 09/05/15 Fluticasone Prop 50 Mcg Ns (FLONASE 50 MCG NS) 16 Gm [place].susp, 2 SPRAY NS QDAY , BOT 2 sprays per nostril, per day 09/05/15 Allergies: Coded Allergies: Penicillins (Verified Allergy, Mild, HIVES, 04/05/17) niacin (Verified Allergy, Mild, 04/05/17) Patient History: FH: Alzheimers disease MOTHER FH: CAD (coronary artery disease) MOTHER BROTHER OR SISTER FH: cancer FATHER MOTHER Hx Smoking: Yes Smoking Status: Former Smoker Exposure to Second Hand Smoke?: No Caffeine Intake: Coffee, Soda Caffeine/Cups Per Day: 5 Hx Alcohol Use: No Hx Substance Use Disorder: No Social Drug Use: Never Review of Systems Other The patient is without complaints, but is unable to give an accurate history of the problems that brought him to the ER. Exam Vital Signs Vital Signs Date Time Temp Pulse Resp B/P (MAP) Pulse Ox O2 Delivery O2 Flow Rate FiO2 04/06/17 07:03 98.2 68 14 159/89 (112) 93 Room Air General Appearance: Alert, Awake, No Acute Distress Neuro: Other (He is able to stand with some assistance. He is able to ambulate with stand by assistance to the restroom and uses the wall for balance. Legs move symmetrically. No facial droop. Normal UE strength grossly. He is confused to place, events and time.) Cardiovascular: Regular Rate and Rhythm Respiratory: Clear to Auscultation Chest: Other (He reports pain on the left posterior chest with the gait belt placed, but it is not reproducible. No skin changes.) GI: Abd Soft and Non-Tender Extremities: No Edema Medical Decision Making Data Points Result Diagram: 04/05/17219904/05/172199 Item Value Date Time Blood Urea Nitrogen 20 mg/dl 04/05/172199 Creatinine 1.00 mg/dl 04/05/172199 Random Glucose 141 mg/dl H 04/05/172199 Total Bilirubin 0.3 mg/dl 04/05/172199 Aspartate Amino Transf (AST/SGOT) 18 U/L 04/05/172199 Alkaline Phosphatase 93 U/L 04/05/172199 Troponin I < 0.012 ng/ml 04/05/172199 Neutrophils (%) (Auto) 65.0 % 04/05/172199 Monocytes (%) (Auto) 8.5 % 04/05/172199 Eosinophils (%) (Auto) 1.7 % 04/05/172199 Basophils (%) (Auto) 1.4 % 04/05/172199 Nucleated RBC Relative Count (auto) 0.1 /100WBC 04/05/172199 Erythrocyte Sedimentation Rate 49 mm/HOUR H 04/06/17 0000 Erythrocyte Sedimentation Rate 72 mm/HOUR H 03/25/17 0925 Urine RBC None /HPF 04/05/17 2304 Urine WBC 1 /HPF 04/05/17 2304 Urine Squamous Epithelial Cells Few /LPF 04/05/172303 Urine Bacteria Negative /HPF 04/05/172303 Urine Mucus None /HPF 04/05/172303 EKG / Imaging EKG Interpretation NSR with 1st degree AV block. No ST-T abnormalities Imaging Brain MRI - 1. No acute infarct. 2. Mild chronic small vessel ischemic change. 3. Mildly hyperintense right vertebral artery flow-void may reflect an underlying stenosis or age-indeterminate occlusion. No acute parenchymal ischemia to suggest this represents acute occlusion. Hyperintense flow voids can additionally be seen in the setting of turbulent blood or sluggish flow related to proximal stenoses or atherosclerotic disease. CT or MR angiogram could be utilized for further evaluation as needed. CXR - No acute abnormality. Head CT - Senescent changes with no acute intracranial abnormality. Assessment and Plan Problems: (1) Unsteady gait Status: Acute Assessment & Plan: The etiology is unclear. The symptoms seemed to have resolved by the time I saw the patient. There is no evidence of CVA or TIA. He has no muscle soreness and his ESR is 42. Will ask OT/PT to evaluate this morning. (2) DM2 (diabetes mellitus, type 2) Status: Chronic Assessment & Plan: Continue 70/30 insulin. Will check AC and HS, but will not cover with SSI. (3) PMR (polymyalgia rheumatica) Status: Chronic Assessment & Plan: He is off of steroids. ESR is down from previous measurement. He is asymptomatic. (4) Alzheimer's dementia Status: Chronic Copies to: WERO GOSS MD Venous Thromboembolism Antithrombotics Is Pt On Any Antithrombotics?: No Exam Sepsis Risk: No Definite Risk BRUCE VACA MD Apr 06, 2017 06:58
[2017-04-06 07:03] VITALS: BP 159/89
[2017-04-06] MEDS: PANTOPRAZOLE SOD 40 MG TABEC PO SCH (08:48)
[2017-04-06] MEDS: LEVOTHYROXINE SOD 0.05 MG TAB PO SCH (08:48)
[2017-04-06] MEDS: ASPIRIN 325 MG TAB PO SCH (08:48)
[2017-04-06] MEDS: LISPRO SUBQ SCH ×3 (08:49→16:55)
[2017-04-06] MEDS: INSULIN NPL SUBQ SCH ×3 (08:49→16:55)
[2017-04-06] MEDS: FLUTICASONE PROP 0.05% 16 GM ENA SCH (08:49)
[2017-04-06 09:20] VITALS: Ht 188 cm; Wt 92.7 kg
[2017-04-06 11:06] VITALS: BP 160/81
--- NOTE | 2017-04-06 13:17 | Miscellaneous Provider Note ---
Miscellaneous Provider Note Note Mr. Gutierrez has done well with PT (who feels he is at baseline). He feels "good" today. No obvious etiology for his symptoms last PM other than maybe some acute vertigo or possible some acute anxiety. Will monitor. TOMAS NIX MD Apr 06, 2017 13:17
[2017-04-06 15:04] VITALS: BP 148/76
[2017-04-06 19:23] VITALS: BP 158/81
[2017-04-06] MEDS ORDERED: PRAVASTATIN SOD 20 MG TAB PO SCH (21:00)
[2017-04-06] MEDS ORDERED: PRAMIPEXOLE DIHYDROCHL 0.25 MG PO SCH (21:00)
[2017-04-06 23:41] VITALS: BP 144/80
[2017-04-07 03:39] VITALS: BP 158/87
[2017-04-07] MEDS: LEVOTHYROXINE SOD 0.05 MG TAB PO SCH (06:03)
[2017-04-07 07:20] VITALS: BP 143/91
[2017-04-07] MEDS: ASPIRIN 325 MG TAB PO SCH (09:00)
[2017-04-07] MEDS: PANTOPRAZOLE SOD 40 MG TABEC PO SCH (09:11)
[2017-04-07] MEDS: LISPRO SUBQ SCH ×2 (09:12→12:24)
[2017-04-07] MEDS: FLUTICASONE PROP 0.05% 16 GM ENA SCH (09:12)
[2017-04-07] MEDS: INSULIN NPL SUBQ SCH ×2 (09:12→12:24)
[2017-04-07] MEDS ORDERED: INSU100I24 SQ ×2 (11:05→11:07)
--- NOTE | 2017-04-07 11:09 | Hospitalist Depart ---
Discharge Summary Reason for Hosp/Final Diag: (1) Unsteady gait Status: Acute Hospital Course & Plan: The etiology is unclear. The symptoms seemed to have resolved by the time the patient reached the medical unit and he hasn't had any problems since. There is no evidence of CVA or TIA. He has no muscle soreness and his ESR is 49. OT/PT have recommended that he continue outpatient PT and continue assistance from family. (2) DM2 (diabetes mellitus, type 2) Status: Chronic Hospital Course & Plan: Glucose was in the 60's last night. Will have him decrease the dinner time dose of 75/25 to 25 units. Will have him check glucose at least in the morning and night. (3) PMR (polymyalgia rheumatica) Status: Chronic Hospital Course & Plan: He is off of steroids. ESR is down from previous measurement. He is asymptomatic. (4) Alzheimer's dementia Status: Chronic Departure Weight (Pounds): 204 Weight (Ounces): 6.0 Result Diagram: 04/05/17219904/05/172199 Item Value Date Time Whole Blood Glucose 207 mg/DL H 04/06/17 0736 Whole Blood Glucose 292 mg/DL H 04/06/17 1137 Random Glucose 141 mg/dl H 04/05/172199 Calcium Level 9.5 mg/dl 04/05/172199 Total Bilirubin 0.3 mg/dl 04/05/172199 Aspartate Amino Transf (AST/SGOT) 18 U/L 04/05/172199 Alanine Aminotransferase (ALT/SGPT) 30 U/L 04/05/172199 Alkaline Phosphatase 93 U/L 04/05/172199 Troponin I < 0.012 ng/ml 04/05/17 220 Whole Blood Glucose 111 mg/DL H 04/06/17 1654 Whole Blood Glucose 60 mg/DL L 04/06/17 2031 Whole Blood Glucose 61 mg/DL L 04/06/17 2222 Whole Blood Glucose 100 mg/DL 04/07/17 0004 Whole Blood Glucose 152 mg/DL H 04/07/17 0738 Neutrophils (%) (Auto) 65.0 % 04/05/172199 Lymphocytes (%) (Auto) 23.4 % 04/05/172199 Monocytes (%) (Auto) 8.5 % 04/05/172199 Erythrocyte Sedimentation Rate 49 mm/HOUR H 04/06/17 0000 Urine RBC None /HPF 04/05/172303 Urine WBC 1 /HPF 04/05/172303 Urine Squamous Epithelial Cells Few /LPF 04/05/172303 Urine Leukocyte Esterase Negative 04/05/172303 Urine Bilirubin Negative 04/05/172303 Imaging Brain MRI - 1. No acute infarct. 2. Mild chronic small vessel ischemic change. 3. Mildly hyperintense right vertebral artery flow-void may reflect an underlying stenosis or age-indeterminate occlusion. No acute parenchymal ischemia to suggest this represents acute occlusion. Hyperintense flow voids can additionally be seen in the setting of turbulent blood or sluggish flow related to proximal stenoses or atherosclerotic disease. CT or MR angiogram could be utilized for further evaluation as needed. CXR - No acute abnormality. Head CT - Senescent changes with no acute intracranial abnormality. EKG Vent. Rate : 064 BPM Atrial Rate : 064 BPM P-R Int : 282 ms QRS Dur : 088 ms QT Int : 406 ms P-R-T Axes : 041 -34 035 degrees QTc Int : 418 ms Sinus rhythm with 1st degree AV block Left axis deviation Abnormal ECG Confirmed by TOMAS NIX ([id number]) on 04/06/2017 1:59:02 PM Condition: Improved Discharge: Home Discharge Instructions Home Meds Active Scripts Insulin Npl/Insulin Lispro (HUMALOG MIX 75-25 KWIKPEN) 100 Unit/1 Ml Insuln.pen , 25-35 UNIT SQ TIDAC for 30 Days, 35 units before breakfast and lunch 25 units before dinner Prov:BRUCE VACA MD 04/07/17 Fluticasone Prop 50 Mcg Ns (FLONASE 50 MCG NS) 16 Gm [place].susp, 2 SPRAYS NS QDAY for 30 Days, #1 BOT Prov:WERO GOSS MD 03/25/17 Omeprazole (OMEPRAZOLE) 40 Mg Capsule.dr, 1 CAP PO QDAY for 90 Days, #90 CAP 4 Refills Prov:WERO GOSS MD 03/04/17 Donepezil Hcl (ARICEPT) 23 Mg Tablet, 1 TAB PO QDAY, #90 TAB Prov:WERO GOSS MD 03/04/17 Pramipexole Di-Hcl (MIRAPEX) 0.25 Mg Tablet, 1 TAB PO QHS for 90 Days, #90 TAB 4 Refills Prov:WERO GOSS MD 03/04/17 Pravastatin Sodium (PRAVASTATIN SODIUM) 20 Mg Tablet, 1 TAB PO HS for 90 Days, # 90 TAB 4 Refills Prov:WERO GOSS MD 03/04/17 Reported Medications Blood Sugar Diagnostic (ONE TOUCH ULTRA TEST STRIPS) 1 Each Strip, 1 EACH ASDIRECTED QID Y for morning and before meals, STRIP 12/17/16 Nitroglycerin (NITROGLYCERIN) 0.4 Mg Tab.subl, 1 TAB SL Q5MIN Y for CHEST PAIN May repeat 3 times in 15 min 12/17/16 Multivitamin (MULTIVITAMINS) 1 Each Capsule, 1 EACH PO QDAY 12/17/16 Levothyroxine Sodium (LEVOTHYROXINE SODIUM) 50 Mcg Tablet, 1 TAB PO QDAY 12/17/16 Aspirin (ASPIRIN) 325 Mg Tablet, 1 TAB PO QDAY, TAB 10/20/15 Cholecalciferol (Vitamin D3) (VITAMIN D) 2,000 Unit Tablet, 1 TAB PO DAILY 09/05/15 Fluticasone Prop 50 Mcg Ns (FLONASE 50 MCG NS) 16 Gm [place].susp, 2 SPRAY NS QDAY , BOT 2 sprays per nostril, per day 09/05/15 Discontinued Scripts Memantine Hcl (NAMENDA XR) 7 Mg Cap.spr.24, 7-21 MG PO DAILY for 30 Days, #84 CAP take 3 caps once daily for 2 wks, take 2 caps once daily for 2 wks, take 1 caps once daily for 2 wks Prov:WERO GOSS MD 03/25/17 Insulin Npl/Insulin Lispro (HUMALOG MIX 75-25 KWIKPEN) 100 Unit/1 Ml Insuln.pen , 35 UNIT SUBQ TIDCF for 90 Days, #6 BOX 4 Refills Pt to increase to 36-37 if BS above 150 Prov:WERO GOSS MD 03/04/17 Diet: Diabetic Activity: As Tolerated, With Walker Special Instructions: Check blood sugars at a minimum of in the morning and evening and log the results. Bring to the next appointment. Follow up with your PCP in 1-2 weeks. Copies to: WERO GOSS MD Venous Thromboembolism Antithrombotics Is Pt On Any Antithrombotics?: No BRUCE VACA MD Apr 07, 2017 11:09
[2017-04-07 11:21] VITALS: BP 144/88
== END 2017-04-07 11:56 | disposition home or self-care (01) ==
LOC: ER 21:40 → MED 04-06 03:03 → INTOOBSV 04-06 03:03
PROVIDERS: ADMIT Internal Medicine; ATTEND Internal Medicine
DX: M35.3 Polymyalgia rheumatica (principal); R42 Dizziness and giddiness; R26.81 Unsteadiness on feet; R70.0 Elevated erythrocyte sedimentation rate; E11.9 Type 2 diabetes mellitus without complications; G30.9 Alzheimer's disease, unspecified; F02.80 Dementia in other diseases classified elsewhere, unspecified severity, without behavioral disturbance, psychotic disturbance, mood disturbance, and anxiety
CPT/HCPCS: 36416; 70450; 70551; 71045; 81001; 82948; 84484; 85025; 85651; 93005; 96360; 96361; 96372; 97161; 97165; 99285; A9270; G0378; J7030; J8597; 82040; 82247; 82310; 82374; 82435; 82565; 82947; 84075; 84132; 84155; 84295; 84450; 84460; 84520; J1815

== ENCOUNTER → 2017-04-05 | Outpatient (CLI) | payer MEDICARE, OTHER ==
[2017-04-06 09:20] VITALS: BMI 26.2
== END ==
LOC: AMB 20:49
PROVIDERS: ATTEND Nurse Practitioner
DX: R42 Dizziness and giddiness (principal); R73.9 Hyperglycemia, unspecified
CPT/HCPCS: A0425; A0427

== ENCOUNTER 2017-05-06 13:45 | Outpatient (RCR) | payer MEDICARE, OTHER ==
[2017-04-06 09:20] VITALS: BMI 26.2
--- NOTE | 2017-04-12 11:06 | PT INITIAL EVALUATION ---
MEDICAL DIAGNOSIS: R53.1 Weakness, M79.604 Pain in B LE, M35.3 PMR (polymyalgia rheumatica) TREATMENT DIAGNOSIS: Same, dementia DATE OF ONSET: 02/15/17 SUBJECTIVE: Pato "Xochitl Gutierrez returns to PT for lower leg and quad ache since just after 2016, with a recent hospitalization for one day for weakness with standing (04/06/17) without findings. He has Polymyalgia Rheumatica. Giovanny has moderate dementia and his son, Carlos, reports that Giovanny is very sedentary. Giovanny and his will move to Home to be with Carlos on 04/30/17. Pain location is anterior and posterior lower legs, knees, quads and described as ache. Pain scale is 1 on a ten point pain scale. Pain is worse with sitting too much and better with movement. Pain location is R anterior knee and described as ache, sore. Pain scale is 1 on a ten point pain scale. Pain is worse with sitting too long and better with moving. REHAB PROBLEM LIST: Increased Pain Impaired Cognition Decreased Strength Impaired Transfers Decreased Balance Decreased Function Decreased Mobility Decreased Gait PREVIOUS MEDICAL HISTORY: PMR, B AMY, R quad tendon tear x2, dementia, sleep apnea, DM II, sinus infections. 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 ROM: B knee AROM WNL, R knee painful end ROM flexion, no crepitus. Ankle AROM DF R -10 deg., L 0 degrees. Hamstrings, hip flexors are tight. Strength: R LE 2+/5 except R tib. ant. 2/5, L LE 3- to 3/5. Special Tests: Timed up and go 22 seconds with RW, elevated chair height 25 inches (was 52 sec. at most 3 days ago). Giovanny ambulates with a flat foot gait pattern, RW, more upright trunk than 8 days ago. Mobility: Sit to stand with one hand use, an improvement from 8 days ago. Gait: Rollator (low), able to stay close to the walker with verbal cues, feet pass each other but don't clear the floor. Balance: Double limb support. ASSESSMENT: Pato Gutierrez presents with improved mobility, gait from 8 days ago while his LE weakness persists. He's a good candidate to have family learn HEP to keep him mobile, reduce fall risk and reduce R knee pain. Giovanny did well with LE strengthening and had difficulty with stretching due to cognition. Short Term Goals/Patient's Family Goals 3 weeks: Giovanny denies LE pain at rest and with ambulation, family is educated on HEP. PLAN: Patient to be seen for Strengthening/condition Range of Motion Stretching Neuromuscular Re-ed Gait Trg/Balance Trg Home Exercise Program 2x/Week for 3 weeks Thank you for this referral. If you have any questions, comments, or concerns about this report or plan, please contact me at . [facility]
--- NOTE | 2017-05-06 15:11 | PT PLAN OF CARE ---
Physician: Dr. Alayna Schmitt Patient is being seen: 2x/week Therapist: Marbella Garcia, PT Medical Diagnosis: R53.1 Weakness, M79.604 Pain in B LE, M35.3 PMR (polymyalgia rheumatica) Treatment Diagnosis: Same, dementia Date of Onset: 02/15/17 Date of Initial Evaluation: 04/11/17 Date patient was last seen: 05/06/17 Number of treatments: 8 Number of cancellations/No shows: 3 INTERVENTIONS: Strengthening/condition, HEP GOALS/PATIENT'S GOAL: 3 weeks: Giovanny denies LE pain at rest and with ambulation ( partially met), family is educated on HEP (met). Patient Compliance: Good Prognosis: Good Reasons for discontinuing therapy: S: Giovanny's son, Carlos, relates Giovanny and his will stay in [place] 2-4 months, then possibly move to [place]. Giovanny had denied LE pain after two weeks of consistent PT, then couldn't attend for 10 days and LE stiffness and ache returned. Carlos relates Giovanny now does car transfers, bed transfers more easily. Posture: Kyphotic thoracic spine, flattened lumbar curve, hip contractures, R LE ER ~35 degrees, head and trunk midline. ROM: B knee AROM WNL. Ankle AROM DF R 0 deg., L 10 degrees. Strength: R LE 3/5 except R tib. ant. 2+/5, L LE 3+/5. Gait: Timed up and go 25 seconds with RW, elevated chair height 25 inches, limited by Giovanny stopping to joke. Giovanny ambulates with RW, R LE ER 35 deg., feet not passing each other, the start of heel strike B, no push off phase. Giovanny is able to turn 180 degrees quickly with RW with SBA. Mobility: Sit to stand without UE use, limited by knee pain. A/P Pato Gutierrez has improved mobility with guided exercise as his dementia allows. His TUG score is reflective of his dementia with focus on task more than gait ability. I'll DC PT due to his moving. If Giovanny returns to [place], I would be happy to work with him. Thank you. [facility]PITALDilip
== END 2017-05-06 15:48 | disposition home or self-care (01) ==
LOC: PT 13:45
PROVIDERS: ATTEND Family Medicine
DX: M79.604 Pain in right leg (principal); M79.605 Pain in left leg; R53.1 Weakness; M35.3 Polymyalgia rheumatica; F03.90 Unspecified dementia, unspecified severity, without behavioral disturbance, psychotic disturbance, mood disturbance, and anxiety; Z96.643 Presence of artificial hip joint, bilateral; G47.30 Sleep apnea, unspecified; E11.9 Type 2 diabetes mellitus without complications
CPT/HCPCS: 97162

== ENCOUNTER → 2017-11-09 | Outpatient (CLI) | payer MEDICARE, OTHER ==
[2017-04-06 09:20] VITALS: BMI 26.2
[~2017-11-09] MED LIST changes: -AMLO2.5T74 PO; +AMLO2.5T76 PO; -ASPI-816 PO; +ASPI-870 PO; +CHOL200018 PO; -CHOL200022 PO; +CITA-137 PO; +INDO-23 PO; -INDO50CA92 PO; -METF-410 PO; -METF-420 PO; +METF-450 PO; +METF-452 PO; +MIRT-22 PO; +TAMS0.4C25 PO; -TRAZ-156 PO; +TRAZ50TA34 PO
[2017-11-09 16:28] LABS: PLATELET COUNT, AUTOMATED 126 K/uL (150-450)
[2017-11-09 17:07] LABS: LDL CHOLESTEROL 27 mg/dl
== END ==
LOC: LAB 16:05
PROVIDERS: ATTEND Family Medicine
DX: E11.9 Type 2 diabetes mellitus without complications (principal); E03.9 Hypothyroidism, unspecified; G47.33 Obstructive sleep apnea (adult) (pediatric)
CPT/HCPCS: 36415; 82040; 82247; 82310; 82374; 82435; 82465; 82565; 82947; 83036; 83718; 84075; 84132; 84155; 84295; 84443; 84450; 84460; 84478; 84520; 85025

== ENCOUNTER 2017-12-06 09:15 | Outpatient (RCR) | payer MEDICARE, OTHER ==
[2017-04-06 09:20] VITALS: BMI 26.2
--- NOTE | 2017-09-27 13:02 | PT INITIAL EVALUATION ---
MEDICAL DIAGNOSIS: W19.XXXA Fall, initial encounter, R26.89 Imbalance, R53.1 Weakness TREATMENT DIAGNOSIS: Same DATE OF ONSET: 02/15/17 SUBJECTIVE: Pato Gutierrez (Tony) returns to PT for his imbalance and weakness, moderate dementia. He spent three months in [place] with his and they've returned home to [place] as the family situation didn't work out. Allie relates Giovanny did PT for the three months in [place], not in the last two months and his gait and balance have declined. She can't get him to do HEP with her. They live in a single level home, two steps into the home. Giovanny's , Allie, relates they live alone, she lacks the funds for respite care or supervised exercise for Giovanny. 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 Pain location is R L-S and described as ache. Pain scale is 8 on a ten point pain scale. Pain is worse with walking and better with rest. REHAB PROBLEM LIST: Increased Pain Impaired Cognition Decreased ROM Decreased Strength Decreased Endurance Decreased Balance Decreased Mobility Decreased Gait PREVIOUS MEDICAL HISTORY: PMR, B AMY, R quad tendon tear x2, dementia, sleep apnea, DM II, sinus infections, Hep B positive, LBP. 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 ROM: Knees PROM extension -20 deg., B, ankle DF 10 degrees PROM. Strength: R LE 4/5, L LE 4+/5. Mobility: Sit<>stand without UE use, imbalance with immediate standing. Gait: Rollator, stooped gait, feet not passing each other, L heel scuffs, turns with rollator with control, side steps from rollator to bed instead of backing up to safely sit. Gait speed 10 feet/10 seconds, a household ambulator. Giovanny will get up and leave his rollator behind if unsupervised. Balance: Double limb support only. Functional reach 5". WS R well, reduced WS L , turning L with twisting on his feet. Gu Balance Assessment 40/56, a 29% impairment. Other Objective Findings: MMSE 20/30, a mild cognitive impairment. Giovanny covers his cognitive deficits with jokes. ASSESSMENT: Pato Gutierrez (Tony) presents with mild cognitive decline and altered gait and balance, fall risk. He's a fair candidate to improve gait and balance for supervised ambulation with rollator, but family will need to decide what direction they're going with his 13/09 care. If you agree, we'll do PT for gait, balance and strengthening, 2x/week, 4 weeks then discharge to the exercise program Allie aleksey. Short Term Goals 4 weeks: Gu 45/56, a lower fall risk, , Allie, verbalizes understanding of HEP, can direct exercise. Patient's Goals: Allie's goal: reduce fall risk. PLAN: Patient to be seen for Strengthening/condition Range of Motion Spinal Stabilization Stretching Neuromuscular Re-ed Gait Trg/Balance Trg Home Exercise Program 2x/Week for 4 Weeks Thank you for this referral. If you have any questions, comments, or concerns about this report or plan, please contact me at . GABINOD
--- NOTE | 2017-10-25 10:13 | PT PLAN OF CARE ---
Physician: Dr. Alayna Schmitt Patient is being seen: 2x/week Therapist: Marbella Garcia, PT Medical Diagnosis: W19.XXXA Fall, initial encounter, R26.89 Imbalance, R53.1 Weakness Treatment Diagnosis: Same Date of Onset: 02/15/17 Date of Initial Evaluation: 09/27/17 Date patient was last seen: 10/25/17 Number of treatments: 7 Number of cancellations/No shows: 1 INTERVENTIONS: Strengthening/condition, Stretching, Neuromuscular Re-ed, Gait Trg/Balance Trg GOALS: 4 weeks: Gu 45/56 (not met), a lower fall risk (met), , Allie, verbalizes understanding of HEP, can direct exercise (not met, Giovanny's LBP limits HEP). PATIENT'S GOAL: Allie's goal: reduce fall risk (met). Patient Compliance: Excellent Prognosis: Fair Reasons for discontinuing balance physical therapy and requesting LBP PT Rx: S: Allie, Giovanny's , relates he hasn't fallen since starting PT. His LBP is increasing, with Giovanny rating LBP without radicular symptoms as 10/10, acute ache. He hasn't had a lumbar injection by Dr. Grossman for about one year, per Allie. Posture: Heels 4" apart, flexed LE's and trunk. ROM: Knees PROM extension remain -20 deg., B, ankle DF 10 degrees PROM. Lumbar flexion 50%, minimal extension and standing lumbar extension increases LBP, knees then flex. Gait/Balance: No Gu test today due to LBP. Giovanny has improved ambulation with feet passing each other, with verbal cues is able to do B heel strike to early heel off with RW. He now turns lifting his feet, steady L and R. Stepping reflexes are absent still. Mobility: Sit<>stand without UE use, steady with immediate standing. A/P: Pato Gutierrez did well with balance and gait training but now LBP is limiting gait and balance. If you agree, I'll DC balance PT and I request a PT Rx to treat Tawnyas LBP to improve quality of life, gait and mobility. [facility]
--- NOTE | 2017-11-01 13:39 | PT PLAN OF CARE ---
Physician: Dr. Alayna Schmitt Patient is being seen: for LBP Therapist: Marbella Garcia PT Medical Diagnosis: M54.5 Treatment Diagnosis: Same Date of Onset: 02/15/17 Date of Initial Evaluation: 09/27/17 Date patient was last seen: 11/01/17 Number of treatments: 8 (Lumbar eval today) Number of cancellations/No shows: 1 INTERVENTIONS: Lumbar evaluation, Stretching/Range of Motion, Conditioning GOALS: 4 weeks: Giovanny dresses, bends forward at the bathroom sink with LBP 0- 2/10. 6 weeks: Giovanny sits 20 minutes with LBP 2/10. PATIENT'S GOAL: Giovanny's goal: Stand, sit without LBP. Allie's goal: Giovanny does home exercises without LBP. 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 Oswestry Disability Index 60% impairment. Giovanny reports standing more than 10 minutes, sitting 10 minutes creates R>L T-L and L-s ache, 7/10 pain. LBP makes the first hour of sleep difficult and walking is limited to short distances. Mild cognitive decline. O: Posture: Heels 4" apart, flexed LE's and trunk. ROM: Lumbar AROM 75% flexion, minimal extension with LBP, side bend B reduces pain, B rotation creates L-S pain. Knees PROM extension -20 deg., B, ankle DF 10 degrees PROM. Strength: R hip flexor 3-/5, quad 3+/5, hamstrings 4+/5, ankle DF 3+/5, L LE 4/5. Special Tests: Negative SLR, B, tight hamstrings, IT bands. Positive Pieter and Haley's tests for inflexibility. Mobility: Sit<>stand without UE use, steady with immediate standing. Gait: RW, flexed trunk, LE's, scuffs R fore foot in swing phase. A/P: Pato Gutierrez presents with reduced ROM, inflexibility, R L4 [place] muscle weakness affecting gait, static postures, sleep. He had no pain after spinal ROM and hip muscle stretching exercise. If you agree, we'll work 2x/week 6 weeks to goals set. Thank you. TAYLOR
[~2017-12-06 09:15] MED LIST changes: -HYDR-4309 PO; +HYDR-653 PO
--- NOTE | 2017-12-09 14:49 | PT PLAN OF CARE ---
Physician: Dr. Alayna Schmitt Patient is being seen: 2x/week Therapist: Marbella Garcia, PT Medical Diagnosis: W19.XXXA Fall, initial encounter, R26.89 Imbalance, R53.1 Weakness Treatment Diagnosis: Same Date of Onset: 02/15/17 Date of Initial Evaluation: 09/27/17 Date patient was last seen: 12/06/17 Number of treatments: 18 Number of cancellations/No shows: 0 INTERVENTIONS: Strengthening/condition Range of Motion Spinal Stabilization Stretching Home Exercise Program GOALS: 4 weeks: Giovanny dresses, bends forward at the bathroom sink with LBP 0- 2/10. not met 6 weeks: Giovanny sits 20 minutes with LBP 2/10. not met PATIENT'S GOAL: Allie's goal: Giovanny does home exercises without LBP. not met Giovanny's goal: Stand, sit without LBP. not met Patient Compliance: Good Prognosis: Fair Reasons for discontinuing therapy: S: Giovanny's hospitalized for pneumonia so I need to close his PT outpatient case. He had one more visit for family to learn gym exercise set up and supervision. Per Allie, Giovanny has the same LBP complaints, using a RW in the afternoons due to LBP, cane in aicha mornings. Giovanny's dementia limits his exercise participation at home. O: Giovanny continued with reduced lumbar AROM extension, gait with feet sometimes passing each other. He tolerated 45 min. of supervised exercise with reports of less LBP at the end of PT sessions. A/P: Giovanny Gutierrez made little gains with lumbar PT due to his dementia. In the future, perhaps a spinal injection could help reduce LBP. I'll DC outpatient PT. Thank you. TAYLOR
== END 2017-12-06 18:00 | disposition home or self-care (01) ==
LOC: PT 09:15
PROVIDERS: ATTEND Family Medicine
DX: R26.89 Other abnormalities of gait and mobility (principal); M54.5 Low back pain; F03.90 Unspecified dementia, unspecified severity, without behavioral disturbance, psychotic disturbance, mood disturbance, and anxiety; E11.9 Type 2 diabetes mellitus without complications; G47.30 Sleep apnea, unspecified; W19.XXXA Unspecified fall, initial encounter
CPT/HCPCS: 97162

== ENCOUNTER 2017-12-07 20:08 | Inpatient (IN) | payer MEDICARE, OTHER ==
[2017-04-06 09:20] VITALS: Ht 190.5 cm; Wt 96.8 kg
[~2017-12-07] VITALS: Ht 190.5 cm; Wt 96.8 kg
[~2017-12-07 20:08] MED LIST changes: -CLIN300C99 PO; -DOXY-181 PO
[2017-12-07 20:33] LABS: PLATELET COUNT, AUTOMATED 165 K/uL (150-450)
[2017-12-07] MEDS ORDERED: EMS NS 0.9%(*) 1000 ML BAG 1,000 ML IV ONE (20:35)
--- NOTE | 2017-12-07 20:37 | ER Report ---
History and Physical Time Seen By MD: 20:37 Hx. of Stated Complaint: PATIENT HAS BEEN HAVING NAUSEA AND VOMITING, PATINET NOT FEELING WELL, DIAPHORETIC. HPI/ROS CHIEF COMPLAINT: fever, n/v, altered mental status HISTORY OF PRESENT ILLNESS: This is a 77 year old male. He has been sick for a few days with cough. Today with nausea and vomiting. Had been worsening through the day. Shaking chills as well. about 1-2 hours prior to coming to the hospital started to have weakness and alteration of his mental status. EMS gave him Zofran en route and started a liter of normal saline IV. He is minimally responsive at this time. Will open his eyes to my voice, but cannot interact further other than squeezing my fingers and opening his mouth and breath deeply for a few breaths. Family states that his has been ill as well. REVIEW OF SYSTEMS: Unable to obtain Allergies: Coded Allergies: Penicillins (Verified Allergy, Mild, HIVES, 12/07/17) niacin (Verified Allergy, Mild, 12/07/17) Home Meds Active Scripts Insulin Npl/Insulin Lispro (HUMALOG MIX 75-25 KWIKPEN) 100 Unit/1 Ml Insuln.pen, 25-35 UNIT SQ TIDAC for 90 Days, #6 BOX 4 Refills 35 units before breakfast and lunch 25 units before dinner Prov:WERO GOSS MD 12/01/17 Omeprazole (OMEPRAZOLE) 40 Mg Capsule.dr, 1 CAP PO QDAY PRN for heartburn for 90 Days, #90 CAP 4 Refills Prov:WERO GOSS MD 11/09/17 Blood Sugar Diagnostic (ONE TOUCH ULTRA TEST STRIPS) 1 Each Strip, 1 STRIP ASDIRECTED QID for 90 Days, #4 BOX 4 Refills Use 1 strip to test glucose QID Length of need: 99 Months Diagnosis:Insulin Dependent Diabetes Mellitus Prov:WERO GOSS MD 09/19/17 Pravastatin Sodium (PRAVASTATIN SODIUM) 20 Mg Tablet, 1 TAB PO HS for 90 Days, #90 TAB 4 Refills Prov:WREO GOSS MD 09/07/17 Tamsulosin Hcl (FLOMAX) 0.4 Mg Cap.er.24h, 1 CAP PO QDAY for 90 Days, #90 CAPSULE 4 Refills Prov:WERO GOSS MD 7/18/18 Trazodone Hcl (TRAZODONE HCL) 50 Mg Tablet, 50 MG PO QHS for 90 Days, #90 TAB 4 Refills Prov:WERO GOSS MD 09/07/17 Citalopram Hydrobromide (CITALOPRAM HBR) 10 Mg Tablet, 10 MG PO QDAY for 90 Days, #90 TAB 4 Refills Prov:WERO GOSS MD 09/07/17 Gabapentin (GABAPENTIN) 300 Mg Capsule, 300 MG PO QHS for 90 Days, #90 CAPSULE 1 Refill Prov:WERO GOSS MD 09/07/17 Fluticasone Prop 50 Mcg Ns (FLONASE 50 MCG NS) 16 Gm [place].susp, 2 SPRAYS NS QDAY for 30 Days, #1 BOT Prov:WERO GOSS MD 03/25/17 Reported Medications Nitroglycerin (NITROGLYCERIN) 0.4 Mg Tab.subl, 1 TAB SL Q5MIN PRN for CHEST PAIN May repeat 3 times in 15 min 12/17/16 Multivitamin (MULTIVITAMINS) 1 Each Capsule, 1 EACH PO QDAY 12/17/16 Aspirin (ASPIRIN) 325 Mg Tablet, 1 TAB PO QDAY, TAB 10/20/15 Cholecalciferol (Vitamin D3) (VITAMIN D) 2,000 Unit Tablet, 1 TAB PO DAILY 09/05/15 Fluticasone Prop 50 Mcg Ns (FLONASE 50 MCG NS) 16 Gm [place].susp, 2 SPRAY NS QDAY, BOT 2 sprays per nostril, per day 09/05/15 Reviewed Nurses Notes: Yes Hx Smoking: Yes Smoking Status: Former Smoker Exposure to Second Hand Smoke?: No Hx Substance Use Disorder: No Hx Alcohol Use: No Constitutional Vital Sign - Last 24 Hours 12/07/17 12/07/17 12/07/17 12/07/17 20:10 20:21 20:23 20:30 Temp 101.8 Pulse 114 113 Resp 24 32 B/P (MAP) 131/81 161/101 (121) Pulse Ox 83 93 O2 Delivery Room Air O2 Flow Rate 3.0 12/07/17 12/07/17 12/07/17 12/07/17 20:38 20:53 21:00 21:08 Pulse 136 141 144 Resp 34 28 31 B/P (MAP) 120/75 (90) Pulse Ox 93 94 97 12/07/17 12/07/17 12/07/17 12/07/17 21:23 21:30 21:38 21:53 Pulse 141 138 133 Resp 30 31 29 B/P (MAP) 108/71 (83) Pulse Ox 98 89 93 12/07/17 12/07/17 12/07/17 12/07/17 22:00 22:05 22:20 22:30 Pulse 135 130 Resp 20 32 B/P (MAP) 110/68 (82) 127/77 (94) Pulse Ox 92 12/07/17 12/07/17 12/07/17 22:35 22:50 23:05 Pulse 132 126 127 Pulse Ox 92 93 92 Physical Exam General Appearance: Minimally responsive at this time. No immediate need for airway protection as he does seem to be protecting his airway at present. No acute distress. Ill/toxic in appearance. Eyes: Pupils are equal, round. Reactive to light. No pallor, injection or icterus. ENT: Mucous membranes are dry. Normal oral mucosa. Posterior oropharynx is normal. Normal tympanic membranes and canals. Neck: Supple and non tender. No lymphadenopathy. Respiratory: Lungs with rales in bases and some rhonchi, but no wheezing. Hypoxic and needing 3 liters by nasal canula. There are no retractions or accessory muscle use. Cardiovascular: Tachycardia with regular rhythm. No murmurs, gallops or rubs. Normal capillary refill. No edema. Gastrointestinal: Abdomen is soft and no apparent tenderness. Nondistended. Normal active bowel sounds. Neurological: altered, but does open eyes to voice, but limited commands followed, falls back to sleep quickly. No verbal communication. I do not see focal deficits, but limited exam at this time. Does seem to move all extremities independently, but general weakness. Skin: Warm and diaphoretic. Musculoskeletal: No apparent tenderness. DIFFERENTIAL DIAGNOSIS: After history and physical exam, differential diagnosis was considered for a patient with altered mental status with signs of sepsis, hypoxia, illness recently which appears likely going to be due to pneumonia but we'll look for other potential causes of altered status as well. Medical Decision Making Data Points Result Diagram: 12/07/17200612/07/172006 Laboratory Hematology Test 12/07/17 20:07 12/07/17 20:21 12/07/17 20:36 12/07/17 21:09 Red Blood Count 4.91 M/uL (4.00-5.60) Mean Corpuscular Volume 93.5 fL (80.0-96.0) Mean Corpuscular Hemoglobin 31.9 pg (26.0-33.0) Mean Corpuscular Hemoglobin Concent 34.2 g/dL (32.0-36.0) Red Cell Distribution Width 13.6 % (11.5-14.5) Mean Platelet Volume 8.5 fL (7.2-11.1) Neutrophils (%) (Auto) 85.6 % (39.4-72.5) Lymphocytes (%) (Auto) 10.3 % (17.6-49.6) Monocytes (%) (Auto) 2.9 % (4.1-12.4) Eosinophils (%) (Auto) 0.4 % (0.4-6.7) Basophils (%) (Auto) 0.8 % (0.3-1.4) Nucleated RBC Relative Count (auto) 0.0 /100WBC Neutrophils # (Auto) 11.5 K/uL (2.0-7.4) Lymphocytes # (Auto) 1.4 K/uL (1.3-3.6) Monocytes # (Auto) 0.4 K/uL (0.3-1.0) Eosinophils # (Auto) 0.0 K/uL (0.0-0.5) Basophils # (Auto) 0.1 K/uL (0.0-0.1) Nucleated RBC Absolute Count (auto) 0.00 K/uL Prothrombin Time 14.3 seconds (12.0-14.4) Prothromb Time International Ratio 1.11 Activated Partial Thromboplast Time 26 seconds (23-35) Sodium Level 138 mmol/L (137-145) Potassium Level 3.8 mmol/L (3.5-5.0) Chloride Level 102 mmol/L (98-107) Carbon Dioxide Level 22 mmol/L (22-30) Blood Urea Nitrogen 12 mg/dl (9-21) Creatinine 0.90 mg/dl (0.66-1.25) Glomerular Filtration Rate Calc > 60.0 Random Glucose 234 mg/dl (75-110) Calcium Level 8.9 mg/dl (8.4-10.2) Total Bilirubin 0.8 mg/dl (0.2-1.3) Aspartate Amino Transf (AST/SGOT) 24 U/L (0-35) Alanine Aminotransferase (ALT/SGPT) 35 U/L (0-56) Alkaline Phosphatase 96 U/L (0-126) Troponin I < 0.012 ng/ml Total Protein 7.0 g/dl (6.3-8.2) Albumin 4.2 g/dl (3.5-5.0) Influenza Virus Type A (PCR) Negative (NEGATIVE) Influenza Virus Type B (PCR) Negative (NEGATIVE) Lactate 1.8 mmol/L (0.7-2.1) Urine Color Yellow Urine Clarity Clear Urine pH 5.0 pH (4.8-9.5) Urine Specific [place] 1.013 Urine Protein Negative mg/dL (NEGATIVE) Urine Glucose (UA) 50 mg/dL (NEGATIVE) Urine Ketones Negative mg/dL (NEGATIVE) Urine Blood Small (NEGATIVE) Urine Nitrite Negative (NEGATIVE) Urine Bilirubin Negative (NEGATIVE) Urine Urobilinogen Negative mg/dL (0.2-1.9) Urine Leukocyte Esterase Negative (NEGATIVE) Urine RBC 2 /HPF (0-2/HPF) Urine WBC 1 /HPF (0-5/HPF) Urine Squamous Epithelial Cells None /LPF (NONE-FEW) Urine Bacteria Negative /HPF (NONE-FEW) Urine Mucus Few /HPF (NONE-FEW) Chemistry Test 12/07/17 20:07 12/07/17 20:21 12/07/17 20:36 12/07/17 21:09 White Blood Count 13.5 k/uL (4.5-11.0) Red Blood Count 4.91 M/uL (4.00-5.60) Hemoglobin 15.7 g/dL (14.0-18.0) Hematocrit 45.9 % (42.0-52.0) Mean Corpuscular Volume 93.5 fL (80.0-96.0) Mean Corpuscular Hemoglobin 31.9 pg (26.0-33.0) Mean Corpuscular Hemoglobin Concent 34.2 g/dL (32.0-36.0) Red Cell Distribution Width 13.6 % (11.5-14.5) Platelet Count 165 K/uL (150-450) Mean Platelet Volume 8.5 fL (7.2-11.1) Neutrophils (%) (Auto) 85.6 % (39.4-72.5) Lymphocytes (%) (Auto) 10.3 % (17.6-49.6) Monocytes (%) (Auto) 2.9 % (4.1-12.4) Eosinophils (%) (Auto) 0.4 % (0.4-6.7) Basophils (%) (Auto) 0.8 % (0.3-1.4) Nucleated RBC Relative Count (auto) 0.0 /100WBC Neutrophils # (Auto) 11.5 K/uL (2.0-7.4) Lymphocytes # (Auto) 1.4 K/uL (1.3-3.6) Monocytes # (Auto) 0.4 K/uL (0.3-1.0) Eosinophils # (Auto) 0.0 K/uL (0.0-0.5) Basophils # (Auto) 0.1 K/uL (0.0-0.1) Nucleated RBC Absolute Count (auto) 0.00 K/uL Prothrombin Time 14.3 seconds (12.0-14.4) Prothromb Time International Ratio 1.11 Activated Partial Thromboplast Time 26 seconds (23-35) Glomerular Filtration Rate Calc > 60.0 Calcium Level 8.9 mg/dl (8.4-10.2) Total Bilirubin 0.8 mg/dl (0.2-1.3) Aspartate Amino Transf (AST/SGOT) 24 U/L (0-35) Alanine Aminotransferase (ALT/SGPT) 35 U/L (0-56) Alkaline Phosphatase 96 U/L (0-126) Troponin I < 0.012 ng/ml Total Protein 7.0 g/dl (6.3-8.2) Albumin 4.2 g/dl (3.5-5.0) Influenza Virus Type A (PCR) Negative (NEGATIVE) Influenza Virus Type B (PCR) Negative (NEGATIVE) Lactate 1.8 mmol/L (0.7-2.1) Urine Color Yellow Urine Clarity Clear Urine pH 5.0 pH (4.8-9.5) Urine Specific [place] 1.013 Urine Protein Negative mg/dL (NEGATIVE) Urine Glucose (UA) 50 mg/dL (NEGATIVE) Urine Ketones Negative mg/dL (NEGATIVE) Urine Blood Small (NEGATIVE) Urine Nitrite Negative (NEGATIVE) Urine Bilirubin Negative (NEGATIVE) Urine Urobilinogen Negative mg/dL (0.2-1.9) Urine Leukocyte Esterase Negative (NEGATIVE) Urine RBC 2 /HPF (0-2/HPF) Urine WBC 1 /HPF (0-5/HPF) Urine Squamous Epithelial Cells None /LPF (NONE-FEW) Urine Bacteria Negative /HPF (NONE-FEW) Urine Mucus Few /HPF (NONE-FEW) Coagulation Test 12/07/17 20:07 Prothrombin Time 14.3 seconds Prothromb Time International Ratio 1.11 Activated Partial Thromboplast Time 26 seconds Urinalysis Test 12/07/17 21:09 Urine Color Yellow Urine Clarity Clear Urine pH 5.0 pH (4.8-9.5) Urine Specific [place] 1.013 Urine Protein Negative mg/dL (NEGATIVE) Urine Glucose (UA) 50 mg/dL (NEGATIVE) Urine Ketones Negative mg/dL (NEGATIVE) Urine Blood Small (NEGATIVE) Urine Nitrite Negative (NEGATIVE) Urine Bilirubin Negative (NEGATIVE) Urine Urobilinogen Negative mg/dL (0.2-1.9) Urine Leukocyte Esterase Negative (NEGATIVE) Urine RBC 2 /HPF (0-2/HPF) Urine WBC 1 /HPF (0-5/HPF) Urine Squamous Epithelial Cells None /LPF (NONE-FEW) Urine Bacteria Negative /HPF (NONE-FEW) Urine Mucus Few /HPF (NONE-FEW) EKG/Imaging EKG Interpretation 12 lead EKG: Rhythm: Supraventricular tachycardia, rate 137 [place]: Left axis deviation QRS: normal ST segments: normal Imaging CHEST SINGLE AP COMPARISONS: Single view chest dated April 05, 2017 ADDITIONAL PERTINENT HISTORY: Cough and congestion. FINDINGS: Cardiomediastinal silhouette: Negative. Pulmonary vasculature: Negative. Lung osborn: Right infrahilar patchy opacity as well as patchy opacity involving the right lower lobe and left lower lobe. Pleural spaces: Negative. Osseous structures: Negative. Surrounding soft tissues: Negative. IMPRESSION: 1. Findings concerning for developing bibasilar regions of infiltrate in the right infrahilar infiltrate. Report Dictated By: Devyn Edmonds MD at 12/07/2017 9:47 PM ED Course/Re-evaluation Clinical Indication for ER IV: Hydration, IV Access ED Course Based on initial presentation, it was felt that the patient was septic, likely from pulmonary infectious process. Labs obtained with IV access, including cultures. Ruiz catheter with urinalysis and culture. Chest x-ray shows apparent infiltrates early. EKG as above. Will treat infection with fluid resuscitation and IV antibiotics. Started Primaxin 1000mg IV and Vancomycin 1500mg IV. Called and discussed with Dr. Meyers who came to the ER for evaluation. He did elicit some abdominal tenderness and given the abdominal/vomiting complaints today, we will get CT scan, chest/abdomen/pelvis with contrast and also a noncontrast head CT. At time of admission, the patient had started improving his mental status. Decision to Disposition Date: Dec 07, 2017 Decision to Disposition Time: 23:31 Depart Departure Latest Vital Signs Vital Signs Date Time Temp Pulse Resp B/P (MAP) Pulse Ox O2 Delivery O2 Flow Rate FiO2 12/07/17 23:05 127 92 12/07/17 22:30 127/77 (94) 12/07/17 22:20 32 12/07/17 20:21 3.0 12/07/17 20:10 101.8 Room Air Impression: Primary Impression: Pneumonia Additional Impression: Sepsis Condition: Improved Disposition: Admitted from ER Referrals: WERO GOSS MD (PCP) Problem Qualifiers Primary Impression: Pneumonia Pneumonia type: due to unspecified organism Laterality: bilateral Lung location: lower lobe of lung Qualified Codes: J18.1 - Lobar pneumonia, unspecified organism Additional Impression: Sepsis Sepsis type: sepsis due to unspecified organism Qualified Codes: A41.9 - Sepsis, unspecified organism ALYSA BAEZ MD Dec 07, 2017 20:37
[2017-12-07 20:38] LABS: INR 1.11
[2017-12-07] MEDS ORDERED: PROMETHAZINE 25 MG/ML 1 ML AMP IVP ONE (20:40)
--- NOTE | 2017-12-07 20:42 | EKG ---
FACILITY: [facility] PATIENT NAME: DANIELLE REICH : [id number] MR: [id number] V: [id number] EXAM DATE: ORDERING PHYSICIAN: ALYSA BAEZ TECHNOLOGIST: JOY Test Reason : TACHY Blood Pressure : / mmHG Vent. Rate : 137 BPM Atrial Rate : 138 BPM P-R Int : 000 ms QRS Dur : 090 ms QT Int : 318 ms P-R-T Axes : 000 -39 060 degrees QTc Int : 480 ms Supraventricular tachycardia Left axis deviation Possible Anterior infarct , age undetermined T flattening consistent with inferior/lateral ischemia vs normal variant When compared with ECG of 05-APR-2017 21:42, Now with T flattening Vent. rate has increased BY 73 BPM Confirmed by BRUCE VACA ([id number]) on 12/07/2017 9:08:00 PM Referred By: Confirmed By:BRUCE VACA
[2017-12-07] MEDS ORDERED: IMIPENEM/CILASTA(*) 500MG VIAL 1,000 MG in NS(*) 0.9% 250 ML BAG 250 ML IVPB ONE (21:00)
[2017-12-07] MEDS ORDERED: VANCOMYCIN(*) 1 GM VIAL 1 GM, VANCOMYCIN (*) 0.5 GM VIAL 0.5 GM in NS(*) 0.9% 250 ML BA... IVPB ONE (21:00)
[2017-12-07] MEDS ORDERED: ONDANSETRON 4 MG/2 ML VIAL IVP ONE (21:05)
[2017-12-07] MEDS ORDERED: NS(*) 0.9% 1000 ML BAG 1,000 ML IV ONE ×2 (21:05→22:00)
--- NOTE | 2017-12-07 21:51 | RADIOLOGY IMAGING REPORT ---
FACILITY: [facility] [place] PATIENT NAME: Pato Gutierrez : 1940 MR: [id number] V: [id number] EXAM DATE: ORDERING PHYSICIAN: ALYSA BAEZ TECHNOLOGIST: Location: [facility] [place] Patient: Pato Gutierrez : 1940 Visit/Account:[id number] Date of Sevice: 12/07/2017 CHEST SINGLE AP COMPARISONS: Single view chest dated April 05, 2017 ADDITIONAL PERTINENT HISTORY: Cough and congestion. FINDINGS: Cardiomediastinal silhouette: Negative. Pulmonary vasculature: Negative. Lung osborn: Right infrahilar patchy opacity as well as patchy opacity involving the right lower lob e and left lower lobe. Pleural spaces: Negative. Osseous structures: Negative. Surrounding soft tissues: Negative. IMPRESSION: 1. Findings concerning for developing bibasilar regions of infiltrate in the right infrahilar infiltr ate. Report Dictated By: Devyn Edmonds MD at 12/07/2017 9:47 PM Report E-Signed By: Devyn Edmonds MD at 12/07/2017 9:48 PM WSN:[id number]
[2017-12-07] MEDS ORDERED: IOPAMIDOL 76% 75 ML INFUS BTL 75 ML ONE (22:55)
[2017-12-07] MEDS ORDERED: INFLUENZA VIRUS VAC 0.5ML SYR IM ONLY ONE (22:55)
[2017-12-07] MEDS ORDERED: LEVALBUTEROL 1.25 MG/3 ML NEB NEB PRN (23:10)
--- NOTE | 2017-12-07 23:44 | History & Physical ---
History of Present Illness History of Present Illness 77yo male with T2DM, dementia, and PVD who was brought to the ER for rigors, confusion, and vomiting. The history is from his . He was in his normal state of health until yesterday. He developed a mild cough and then was more sleepy in the afternoon. Today, he woke up and ate breakfast, but went back to bed, which is unusual for him. The cough persisted. About 1500, he started to get more confused and was getting cold. Later, he started having shivering and then vomited. He never had any complaints, but specifically no neck stiffness, headache or shortness of breath. In the ER, he has almost received 3 liters of fluid. He was given Primaxin, Zofran, Vancomycin, and Phenergan. History Problems: (1) Alzheimers disease Status: Chronic (2) Essential hypertension Status: Chronic (3) JENNY on CPAP Status: Chronic (4) DM2 (diabetes mellitus, type 2) Status: Chronic Home Meds Active Scripts Insulin Npl/Insulin Lispro (HUMALOG MIX 75-25 KWIKPEN) 100 Unit/1 Ml Insuln.pen, 25-35 UNIT SQ TIDAC for 90 Days, #6 BOX 4 Refills 35 units before breakfast and lunch 25 units before dinner Prov:WERO GOSS MD 12/01/17 Omeprazole (OMEPRAZOLE) 40 Mg Capsule.dr, 1 CAP PO QDAY PRN for heartburn for 90 Days, #90 CAP 4 Refills Prov:WERO GOSS MD 11/09/17 Blood Sugar Diagnostic (ONE TOUCH ULTRA TEST STRIPS) 1 Each Strip, 1 STRIP ASDIRECTED QID for 90 Days, #4 BOX 4 Refills Use 1 strip to test glucose QID Length of need: 99 Months Diagnosis:Insulin Dependent Diabetes Mellitus Prov:WERO GOSS MD 09/19/17 Pravastatin Sodium (PRAVASTATIN SODIUM) 20 Mg Tablet, 1 TAB PO HS for 90 Days, #90 TAB 4 Refills Prov:WERO GOSS MD 09/07/17 Tamsulosin Hcl (FLOMAX) 0.4 Mg Cap.er.24h, 1 CAP PO QDAY for 90 Days, #90 CAPSULE 4 Refills Prov:WERO GOSS MD 09/07/17 Trazodone Hcl (TRAZODONE HCL) 50 Mg Tablet, 50 MG PO QHS for 90 Days, #90 TAB 4 Refills Prov:WERO GOSS MD 09/07/17 Citalopram Hydrobromide (CITALOPRAM HBR) 10 Mg Tablet, 10 MG PO QDAY for 90 Days, #90 TAB 4 Refills Prov:WERO GOSS MD 09/07/17 Gabapentin (GABAPENTIN) 300 Mg Capsule, 300 MG PO QHS for 90 Days, #90 CAPSULE 1 Refill Prov:WERO GOSS MD 09/07/17 Fluticasone Prop 50 Mcg Ns (FLONASE 50 MCG NS) 16 Gm [place].susp, 2 SPRAYS NS QDAY for 30 Days, #1 BOT Prov:WERO GOSS MD 03/25/17 Reported Medications Nitroglycerin (NITROGLYCERIN) 0.4 Mg Tab.subl, 1 TAB SL Q5MIN PRN for CHEST PAIN May repeat 3 times in 15 min 12/17/16 Multivitamin (MULTIVITAMINS) 1 Each Capsule, 1 EACH PO QDAY 12/17/16 Aspirin (ASPIRIN) 325 Mg Tablet, 1 TAB PO QDAY, TAB 10/20/15 Cholecalciferol (Vitamin D3) (VITAMIN D) 2,000 Unit Tablet, 1 TAB PO DAILY 09/05/15 Fluticasone Prop 50 Mcg Ns (FLONASE 50 MCG NS) 16 Gm [place].susp, 2 SPRAY NS QDAY, BOT 2 sprays per nostril, per day 09/05/15 Allergies: Coded Allergies: Penicillins (Verified Allergy, Mild, HIVES, 12/07/17) niacin (Verified Allergy, Mild, 12/07/17) Patient History: FH: Alzheimers disease MOTHER FH: CAD (coronary artery disease) MOTHER BROTHER OR SISTER FH: cancer FATHER MOTHER Hx Smoking: Yes Smoking Status: Former Smoker Exposure to Second Hand Smoke?: No Caffeine Intake: Coffee, Soda Caffeine/Cups Per Day: 5 Hx Alcohol Use: No Hx Substance Use Disorder: No Social Drug Use: Never Review of Systems Other See HPI. The patient is unable to give any history. Exam Vital Signs Vital Signs Date Time Temp Pulse Resp B/P (MAP) Pulse Ox O2 Delivery O2 Flow Rate FiO2 12/07/17 22:30 127/77 (94) 12/07/17 22:20 130 32 12/07/17 22:05 92 12/07/17 20:21 3.0 12/07/17 20:10 101.8 Room Air General Appearance: Other (Pale, eyes closed, restless, breathing comfortably) Neuro: Other (Opens eyes to voice and follows some commands.) ENT: Other (Dry mucous membranes.) Cardiovascular: Other (Tachy, regular, no m/r/g) Respiratory: Clear to Auscultation (anteriorly and laterally) GI: Other (Soft, but he was visibly uncomfortable with palpation diffusely. Non-distended) Extremities: Perfused Integumentary: No Jaundice, No Cyanosis Medical Decision Making Data Points Result Diagram: 12/07/17200612/07/172006 Item Value Date Time Neutrophils (%) (Auto) 85.6 % H 12/07/172006 Lymphocytes (%) (Auto) 10.3 % L 12/07/172006 Monocytes (%) (Auto) 2.9 % L 12/07/172006 Prothromb Time International Ratio 1.11 12/07/172006 Lactate 1.8 mmol/L 12/07/172035 Lactate 1.8 mmol/L 12/07/172006 Troponin I < 0.012 ng/ml 12/07/172006 Total Bilirubin 0.8 mg/dl 12/07/172006 Aspartate Amino Transf (AST/SGOT) 24 U/L 12/07/172006 Alanine Aminotransferase (ALT/SGPT) 35 U/L 12/07/172006 Alkaline Phosphatase 96 U/L 12/07/172006 Hemoglobin A1c 6.8 % H 11/09/17 1614 Urine RBC 2 /HPF 12/07/172108 Urine WBC 1 /HPF 12/07/172108 Urine Glucose (UA) 50 mg/dL H 12/07/172108 Urine Blood Small 12/07/172108 Influenza Virus Type A (PCR) Negative 12/07/172020 Influenza Virus Type B (PCR) Negative 12/07/172020 EKG / Imaging EKG Interpretation Vent. Rate : 137 BPM Atrial Rate : 138 BPM P-R Int : 000 ms QRS Dur : 090 ms QT Int : 318 ms P-R-T Axes : 000 -39 060 degrees QTc Int : 480 ms Supraventricular tachycardia Left axis deviation Possible Anterior infarct , age undetermined T flattening consistent with inferior/lateral ischemia vs normal variant When compared with ECG of 05-APR-2017 21:42, Now with T flattening Vent. rate has increased BY 73 BPM Confirmed by BRUCE VACA ([id number]) on 12/07/2017 9:08:00 PM Imaging CXR - 1. Findings concerning for developing bibasilar regions of infiltrate in the right infrahilar infiltrate. Abd/Pelvis CT - Pending Head CT - Pending Assessment and Plan Problems: (1) Sepsis Status: Acute Assessment & Plan: He presented with increasing confusion, chills throughout the day. He then had rigors and vomiting before coming to the ER. He has had a cough for about 2 days. He is pretty somnolent but awakens to voice. His lactate is normal. His temperature was 101.8 degrees, heart rate to the 140's, but to the 120's after fluid resuscitation and BP is wnl. He has been started on Primaxin and Vancomycin in the ER, which will be continued to cover a presumed pneumonia. (2) Pneumonia Status: Acute Assessment & Plan: He has had a cough for 2 days. CXR showed a new infrahilar infiltrate. WBC is elevated and he is febrile. He is requiring a couple liters of O2, which is new for him. He has normal work of breathing. He did have multiple vomiting episodes before admission, so aspiration cannot be ruled out. See above. (3) Nausea and vomiting Status: Acute Assessment & Plan: This occurred just before coming to the ER. He then had a loose BM in the ER. He is noticably uncomfortable with abdominal palpation. However, his abdomen is soft and non-distended. He is getting a CT of his abd/pelvis. (4) DM2 (diabetes mellitus, type 2) Status: Chronic Assessment & Plan: His chronic preprandial Humalog will be held. Glucose checks [id number] with SSI level 2 to cover. (5) Alzheimer's dementia Status: Chronic Assessment & Plan: He is chronically on citalopram and trazodone which have helped sleep. Those will be held for now. (6) PVD (peripheral vascular disease) Status: Chronic Assessment & Plan: He has a h/o of vascular stent placement. (7) JENNY on CPAP Status: Chronic (8) Diabetes, polyneuropathy Status: Chronic Assessment & Plan: Holding chronic gabapentin secondary to AMS. (9) BPH (benign prostatic hyperplasia) Status: Chronic Assessment & Plan: Holding chronic tamsulosin secondary to AMS. Copies to: WERO GOSS MD ; Venous Thromboembolism Antithrombotics Is Pt On Any Antithrombotics?: No Exam Sepsis Risk: Possible Severe Sepsis Risk BRUCE VACA MD Dec 07, 2017 23:44
[2017-12-07 23:56] VITALS: BP 113/75
[2017-12-08] VITALS (34 sets, daily range): BP systolic 106–154; BP diastolic 46–105
--- NOTE | 2017-12-08 00:04 | RADIOLOGY IMAGING REPORT ---
[place] [facility] [place] NAME: Pato Gutierrez : 1940 MR: [id number] V: [id number] EXAM DATE: ORDERING PHYSICIAN: ALYSA BAEZ TECHNOLOGIST: [place] [facility] [place]o Gut[place] : 1940 Visit/Account:[id number] Date of Sevice: 12/07/[address]: Indication: Altered mental status. Technique: Contiguous axial sections were obtained from the base to the vertex without contrast enhan cement. One of the following dose optimization techniques was utilized in the performance of this exam: Autom ated exposure control; adjustment of the mA and/or kV according to the patient's size; or use of an i terative reconstruction technique. Specific details can be referenced in the facility's radiology CT exam operational policy. Comparison: 04/05/2017 Findings: There is no evidence of intra-axial or extra-axial hemorrhage. There is chronic cortical at rophy. No new focal areas of decreased or increased attenuation are identified. There is no evidence of mass, edema, or shift of the midline structures. The size, shape, and configuration of the ventric ular system are stable. The skeletal structures are intact and unremarkable. The visualized paranasal sinuses and mastoid air cells are clear. Impression: No acute process or significant change. Report Dictated By: Jelani Martinez MD at 12/07/2017 11:54 PM Report E-Signed By: Jelani Martinez MD at 12/08/2017 12:00 AM WSN:[id number]
[2017-12-08] MEDS: NS(*) 0.9% 1000 ML BAG 1,000 ML IV PRN ×2 (00:17→18:05)
--- NOTE | 2017-12-08 00:21 | RADIOLOGY IMAGING REPORT ---
FACILITY: [facility] - [place] PATIENT NAME: Pato Gutierrez : 1940 MR: [id number] V: [id number] EXAM DATE: ORDERING PHYSICIAN: ALYSA BAEZ TECHNOLOGIST: [facility] Patient: Pato Gutierrez : 1940 Visit/Account:[id number] Date of Sevice: 12/07/2017 CT of the chest, abdomen, and pelvis with contrast: Indication: Altered mental status and sepsis. Technique: Helical CT was performed through the chest, abdomen, and pelvis following IV contrast enha ncement with 75 cc of Isovue-370. Multiplanar reconstructions are reviewed. Evaluation is limited, d ue to motion artifact. One of the following dose optimization techniques was utilized in the performance of this exam: Autom ated exposure control; adjustment of the mA and/or kV according to the patient's size; or use of an i terative reconstruction technique. Specific details can be referenced in the facility's radiology CT exam operational policy. Comparison: 01/04/2016 Findings: Lungs: There is a moderate-sized area of parenchymal consolidation in the right lower lobe, compatibl e with acute pneumonia. There are small areas of parenchymal opacity in the right middle lobe and lef t lower lobe, also suggesting acute infection. There also appear a tiny nodule in the right lower lob e. Pleural spaces: There is bilateral mild pleural thickening. No calcification, mass, or significant pl eural effusion is identified. Mediastinum: There is mild atherosclerotic calcification in the thoracic aorta. There are no signs of aneurysm. There is no evidence of mass or lymph node enlargement. The heart size is normal. There is diffuse atherosclerotic calcification in the coronary arteries. No pericardial effusion is identified. Liver: Normal in size, shape, and density. The venous structures are unremarkable, as visualized Gallbladder and biliary tree: There are surgical clips related to prior cholecystectomy. The bile ellen ts are not dilated. Pancreas: Normal in size, shape, and density. Spleen: Normal in size, shape, and density. Adrenal glands: There appears to be a tiny nodule in the right adrenal gland, most likely representin g an incidental adenoma. This appears unchanged from 2016. The adrenal glands are otherwise unremarka ble. Kidneys: There is a 2.1 cm area of hypoattenuation in the lateral cortex of the right kidney, which c annot be confirmed as cystic or solid, due to artifact. This was not clearly visualized on the previo us study. Follow-up evaluation with renal ultrasound is recommended. The kidneys are otherwise unremarkable. There are no signs of urinary tract calculus or obstruction. Intestinal structures: There is a large amount of fecal material in the rectum. The intestinal struct ures are otherwise unremarkable, as visualized. There is no evidence of obstruction or focal inflamma tory changes. Urinary bladder: A Ruiz catheter is present in the bladder lumen. The bladder was empty at the time of scanning. Pelvic structures: Unremarkable. Ascites or fluid collections: None seen. Skeletal structures: Bilateral hip prostheses appear intact. There is moderate degenerative disc dise ase and osteoarthritis in the spine. No acute skeletal deformity is clearly identified. IMPRESSION: There is a moderate-sized area of parenchymal consolidation in the right lower lobe, comp atible with acute pneumonia. Small areas of parenchymal opacity are present in the right middle lobe and left lower lobe, also suggesting acute infection. There is a 2.1 cm area of hypoattenuation in the right kidney, which may be cystic or solid. Follow-u p evaluation with renal ultrasound is recommended. Report Dictated By: Jelani Martinez MD at 12/08/2017 12:01 AM Report E-Signed By: Jelani Martinez MD at 12/08/2017 12:18 AM WSN:[id number]
[2017-12-08] MEDS: INSULIN HUM LISPRO 100 UN/ML 3 ML VIAL SUBQ PRN ×5 (00:36→20:56)
[2017-12-08] MEDS ORDERED: IMIPENEM/CILASTA(*) 500MG VIAL 500 MG in NS(*) 0.9% 100 ML BAG 100 ML IVPB SCH ×2 (03:00→08:00)
[2017-12-08 05:36] LABS: PLATELET COUNT, AUTOMATED 98 K/uL (150-450)
[2017-12-08] MEDS ORDERED: IMIPENEM/CILASTA(*) 500MG VIAL 400 MG in NS(*) 0.9% 100 ML BAG 100 ML IVPB SCH ×2 (06:45→08:00)
[2017-12-08] MEDS ORDERED: ACETAMINOPHEN(*)1000 MG/100 ML 100 ML IVPB PRN (08:00)
[2017-12-08] MEDS ORDERED: PANTOPRAZOLE SOD 40 MG IV VIAL IVP SCH (09:00)
[2017-12-08] MEDS ORDERED: ACETAMINOPHEN(*)1000 MG/100 ML 100 ML IVPB SCH (09:00)
[2017-12-08] MEDS: ENOXAPARIN 40 MG/0.4ML SYR SC SCH (09:17)
[2017-12-08] MEDS: NYSTATIN 100,000 U/GM PWD 15GM TP SCH ×2 (09:17→20:51)
[2017-12-08] MEDS: VANCOMYCIN(*) 1 GM VIAL 1 GM, VANCOMYCIN (*) 0.5 GM VIAL 0.5 GM in NS(*) 0.9% 250 ML BA... IVPB SCH ×2 (09:25→22:04)
--- NOTE | 2017-12-08 10:36 | Hospitalist Progress Note ---
Subjective Progress Notes Subjective 77M admitted for sepsis 2/2 PNA. TONI overnight, remains febrile this am. Patient is demented at baseline. Patient Complains of: Cardiovascular: No: Chest Pain, Palpitations Respiratory: Cough; No: Congestion, Shortness of Breath Gastrointestinal: No Nausea, No Vomiting Physical Exam Vital Signs Date Time Temp Pulse Resp B/P (MAP) Pulse Ox O2 Delivery O2 Flow Rate FiO2 12/08/17 10:27 92 Room Air 12/08/17 10:03 86 12/08/17 10:00 22 114/60 (78) 3.0 12/08/17 09:24 99.2 Intake and Output 12/08/17 07:00 Intake Total 3955 ml Output Total 700 ml Balance 3255 ml Intake IV Total 3955 ml Output Urine Total 700 ml General Appearance: Alert, Awake, No Acute Distress Neuro: No Gross deficits Eyes: PERRLA ENT: Normal Neck: No Masses Cardiovascular: Normal Rhythm & Peripheral Pulses Respiratory: Other (crackles RLL) GI: Other (mild tenderness to palpation, no guarding) : Normal (+ Ruiz) Musculoskeletal: No Weakness/Pain Extremities: Soft and Non Tender, Warm, Pulses, Perfused; No Edema Integumentary: Skin Intact without Lesion / Mass Psych: Other (confused, redirectable) Result Diagram: 12/08/17 0508 12/08/17 0508 Assessment and Plan Problems: (1) Sepsis Status: Acute Assessment & Plan: He presented with increasing confusion, chills throughout the day, vomiting before presentation, 2d cough, febrile, lactate normal. Started on Primaxin and Vancomycin in the ER, which will be continued to cover a presumed pneumonia. (2) Pneumonia Status: Acute Assessment & Plan: He has had a cough for 2 days. CXR showed a new infrahilar infiltrate, CT with R basilar consolidation possible L basilar infiltrate. Needing 2L O2 on admission, baseline is room air. He did have multiple vomiting episodes before admission, so aspiration cannot be ruled out. See above. (3) Nausea and vomiting Status: Acute Assessment & Plan: Resolved. This occurred just before coming to the ER, then had a loose BM in the ER. CT showed no acute abdominal pathology. (4) DM2 (diabetes mellitus, type 2) Status: Chronic Assessment & Plan: His chronic preprandial Humalog will be held. Glucose checks [id number] with SSI level 2 to cover. (5) Alzheimer's dementia Status: Chronic Assessment & Plan: He is chronically on citalopram and trazodone which have helped sleep. (6) PVD (peripheral vascular disease) Status: Chronic Assessment & Plan: He has a h/o of vascular stent placement. (7) JENNY on CPAP Status: Chronic (8) Diabetes, polyneuropathy Status: Chronic Assessment & Plan: Holding chronic gabapentin secondary to AMS. (9) BPH (benign prostatic hyperplasia) Status: Chronic Assessment & Plan: Holding chronic tamsulosin secondary to AMS. Exam Sepsis Risk: Severe Sepsis Risk Problem Qualifiers (1) Sepsis: Sepsis type: sepsis due to unspecified organism Qualified Codes: A41.9 - Sepsis, unspecified organism (2) Pneumonia: Pneumonia type: due to unspecified organism Laterality: bilateral Lung location: lower lobe of lung Qualified Codes: J18.1 - Lobar pneumonia, unspecified organism HANSA SNYDER DO Dec 08, 2017 10:36
[2017-12-08] MEDS: CITALOPRAM HYDROBROM 20 MG TAB PO SCH (10:55)
--- NOTE | 2017-12-08 11:27 | Medical Nutrition Therapy ---
Nutrition Anthropometrics Height (Inches): 75.00 Height (Calculated Centimeters: 190.325740 Weight (Pounds): 213 Weight (Calculated Kilograms): 96.842 BMI: 26.7 Isaac Nutrition Score: Adequate Isaac Nutrition Risk Score: 19 Dietary Referral Nutrition Risk Factors: Special Diet Nutrition Risk Comment: Physical Findings Physical Appearance: Overweight BMI 25-29 Skin Appearance Skin Appearance: Edema Edema Location Modifier: Edema Location: Type of Edema: Degree of Edema: Gastrointestinal Symptoms GI Symtoms: Tube Present: Bowel Sounds: Recent Bowel Pattern: Stool Characteristics: Nutritional Diagnosis Nutritional Risk Acuity 2: Sepsis Nutritional Risk Acuity 3: Alzheimer's Past Medical History: Essential hypertension, JENNY on CPAP, hepititis B, cholecystectomy, tonsillectomy, Alzheimers Disease, depression, Hep B, type 2, atrial fibrilation, polyneuropathy, peripheral vascular dz Nutritional Acuity: 2-Moderate Nutrition Diagnosis: Increased Nutrient Needs Nutrition Etiology: Physiological Causes Nutrition Problem/Etiology/Sym: AEB sx sepsis Energy Requirement: 2300 (M- StJ) Protein Requirement: 96 (1gm/kg) Fluid Requirement: 2400 (25ml/kg) Diet Type: Diabetic Nutrition Intervention: Cont diet as ordered, Encourage intake Nutrition Monitoring & Eval Nutrition Goals: Eat 75-100% Meal RD Patient Assessment Time: [address] Assessment Type: RD Assessment Patient Nutrition Acuity: 2-Moderate Follow Up Date: Dec 11, 2017 Nutritional Comment: 12/08 Pt admitted for pneumonia with sepsis. Pt on diabetic diet. No intake reported at this time. Pt had N/V which might affect intake. Bg ranging 178-234. Alb 3.7. Will cont to monitor and encourage intake. ALEJANDRO MELISSA Dec 08, 2017 11:27
[2017-12-08] MEDS: TAMSULOSIN HCL 0.4 MG CAP PO SCH (12:15)
[2017-12-08] MEDS: IMIPENEM/CILASTA(*) 500MG VIAL 500 MG in NS(*) 0.9% 100 ML BAG 100 ML IVPB SCH ×2 (13:23→20:51)
[2017-12-08] MEDS: PRAVASTATIN SOD 20 MG TAB PO SCH (20:51)
[2017-12-08] MEDS: traZODone HCL 50 MG TAB PO SCH (20:51)
[2017-12-09 02:35] VITALS: BP 134/69
[2017-12-09] MEDS: IMIPENEM/CILASTA(*) 500MG VIAL 500 MG in NS(*) 0.9% 100 ML BAG 100 ML IVPB SCH ×4 (02:37→20:41)
[2017-12-09 06:02] LABS: PLATELET COUNT, AUTOMATED 84 K/uL (150-450)
[2017-12-09 07:01] VITALS: BP 149/68
[2017-12-09] MEDS: INSULIN HUM LISPRO 100 UN/ML 3 ML VIAL SUBQ PRN ×4 (07:24→21:23)
[2017-12-09] MEDS ORDERED: ASPIRIN 325 MG ENTERIC COATED PO SCH (09:00)
[2017-12-09] MEDS: PANTOPRAZOLE SOD 40 MG TABEC PO SCH (09:59)
[2017-12-09] MEDS: CITALOPRAM HYDROBROM 20 MG TAB PO SCH (09:59)
[2017-12-09] MEDS: TAMSULOSIN HCL 0.4 MG CAP PO SCH (09:59)
[2017-12-09] MEDS: ENOXAPARIN 40 MG/0.4ML SYR SC SCH (10:00)
[2017-12-09] MEDS: NYSTATIN 100,000 U/GM PWD 15GM TP SCH ×2 (10:13→20:41)
--- NOTE | 2017-12-09 10:31 | Hospitalist Progress Note ---
Subjective Progress Notes Subjective This patient was admitted for pneumonia. He had no acute events overnight. Patient Complains of: Cardiovascular: No: Chest Pain Respiratory: No: Cough, Shortness of Breath Physical Exam Vital Signs Date Time Temp Pulse Resp B/P (MAP) Pulse Ox O2 Delivery O2 Flow Rate FiO2 12/09/17 07:01 98.9 80 16 149/68 (95) 95 Nasal Cannula 1.0 Intake and Output 12/09/17 07:00 Intake Total 2381 ml Output Total 1525 ml Balance 856 ml Intake Oral 942 ml IV Total 1439 ml Output Urine Total 1525 ml Cardiovascular: Regular Rate and Rhythm Respiratory: Clear to Auscultation Result Diagram: 12/09/1729 12/09/1729 Item Value Date Time Urine Culture - Preliminary Resulted 12/07/172108 Cath Urine NO GROWTH AFTER 1 DAY, REINCUBATED Blood Culture - Preliminary Resulted 12/07/172039 Blood NO GROWTH AFTER 2 DAYS, REINCUBATED Blood Culture - Preliminary Resulted 12/07/172035 Blood NO GROWTH AFTER 2 DAYS, REINCUBATED Assessment and Plan Problems: (1) Aspiration pneumonia Assessment & Plan: His chest x-ray did show a right sided infiltrate. He was initially on empiric treatment with Primaxin and vancomycin. The vancomycin was discontinued today. His cultures have been negative. A speech therapy consult is pending. (2) Sepsis Status: Acute Assessment & Plan: He did have an elevated WBC, fever, and tachycardia. A lactate level was normal. These have all improved. (3) Nausea and vomiting Status: Acute Assessment & Plan: A CT scan of the abdomen and pelvis did not reveal an etiology. His symptoms have resolved without specific treatment. (4) DM2 (diabetes mellitus, type 2) Status: Chronic Assessment & Plan: He is on chronic treatment with 75/25 insulin. We currently have him on sliding scale level #2 only. (5) Alzheimer's dementia Status: Chronic Assessment & Plan: He is chronically on citalopram and trazodone which have helped sleep. (6) PVD (peripheral vascular disease) Status: Chronic Assessment & Plan: He has a h/o of vascular stent placement. (7) JENNY on CPAP Status: Chronic (8) Diabetes, polyneuropathy Status: Chronic Assessment & Plan: Holding chronic gabapentin secondary to AMS. (9) BPH (benign prostatic hyperplasia) Status: Chronic Assessment & Plan: Holding chronic tamsulosin secondary to AMS. Exam Sepsis Risk: Severe Sepsis Risk Problem Qualifiers (1) Sepsis: Sepsis type: sepsis due to unspecified organism Qualified Codes: A41.9 - Sepsis, unspecified organism ABDI FRASER DO Dec 09, 2017 10:31
--- NOTE | 2017-12-09 12:37 | SLP BEDSIDE SWALLOW EVALUATION ---
BEDSIDE SWALLOW ASSESSMENT Physician: Kevin Magaña DO Clinician: Anitha Johnson MS, CCC-PEDIATRIC SPEECH LANGUAGE PATHOLOGIST Type of Assessment: Bedside Dysphagia Evaluation Patient: Pato Gutierrez : 1940, 77yo Evaluation Date: 12/09/17 BACKGROUND The patient is a 77 year old male admitted to [facility] [place] on 12/07/17 with complaints of cough, nausea, vomiting, shaking, and chills. He presented to the ED with altered mental status, weakness, and minimal responsiveness. The pt was found to be septic. CXR illustrated LLL infiltrate and RLL consolidation with concern for aspiration pneumonia. ST evaluation was ordered to analyze oropharyngeal swallow structure and function, and to determine safety with PO intake. Primary Medical Diagnosis: Aspiration Pneumonia Pain Scale (0-10): 0; appears comfortable. LOC / Participation: Alert and cooperative. Follows instructions: single-level. Orientation: Alert, oriented to self only DYSPHAGIA Sialorrhea: No Xerostomia: No Hygiene: WFL Supplemental Oxygen Use: Yes. 1.0 LPM via NC. Respiratory Rate: WNL COPD Dx: No; however, pt w/ hx of JENNY. CPAP in PM. Pain with Swallow: No. Oropharyngeal Structure and Function: Oromotor exam was mostly unremarkable apart from edentulism. Upper dentures in place. Lower alveolar ridge significantly deteriorated. Otherwise adequate strength, speed, coordination, and ROM of all oral musculature. Administered PO trials of thin liquids via cup sip and straw, pureed solids, soft solids, mixed textures, and regular solids. Overall, oral and pharyngeal phases of swallow are WFL for normal PO intake. Pt w/ appropriate mastication time, adequate bolus formation, timely a-p transit, and clearance of material from oral cavity. Pharyngeally, pt exhibited timely swallow initiation and no overt s/sx of aspiration across PO trials. Of note, pt demonstrated some impulsive behaviors w/ rapid consumption of thin liquids. Due to hx of Alzheimers dementia, this pt may exhibit decreased attention to mealtime activities, poor awareness of material in oral cavity, and subsequently elevated risk for aspiration. However, impulsiveness with thin liquid trials did not result in any observed deficits during evaluation procedures. ST ASSESSMENT SUMMARY Aspiration Risk: Minimal. Negative prognostic indicators may include impulsive behaviors, cognitive impairments, hx of JENNY, and compromised respiratory status w/ O2 needs. It is also possible the pt aspirated vomit during events leading up to hospitalization. Speech Therapy Need Oropharyngeal swallow status is WFL for tolerance of a regular diet and thin liquids. ST services are not warranted for dysphagia at this time. The pt also exhibited significant cognitive linguistic deficits throughout assessment procedures. He appeared only oriented to self, struggled to follow multi-level commands, demonstrated word finding deficits in conversation, and was highly tangential during encounter. Per chart review and discussion with nursing staff, suspect this is close to baseline. Please refer if change in status warrants further evaluation. RECOMMENDATIONS 1. Diet: Regular, thin liquids. 2. Medications: Whole, ok with thin liquids. 3. Compensatory Techniques: regular oral hygiene, upright positioning during PO intake 4. Supervision with meals/snacks: Offer intermittent reminders for swallow safety and continue to monitor impulsive behaviors during PO intake. Thank you for this referral. Anitha Johnson M.S., [facility]PEDIATRIC SPEECH LANGUAGE PATHOLOGIST Speech Therapist Physician Signature Date [*] MTDD
--- NOTE | 2017-12-09 15:22 | Antimicrobial Stewardship ---
Antimicrobial Stewardship Empiricly appropriate: Yes Comment Started on Vancomycin and Primaxin for sepsis/pneumonia on late evening of 12/07/17. Most likely aspiration pneumonia due to multiple vomiting episodes. Chest x-ray shows a right sided infiltrate. Approriate Cultures done: Yes (No growth to date) Renal/Hepatic dosing: Yes Serum concentration checked: Yes Comment Vanco Tr 11.14 on 12/09/17. Vanco is now discontinued. Reviewed for Drug Interaction: Yes Monitored for Toxicities: Yes Clinically stable/improving: Yes (WBC improving, no fever x 24 hrs) IV to PO Opportunity: No Determine cumulative duration: 7-10 days KARTIK MERAZ Dec 09, 2017 15:21
[2017-12-09 15:55] VITALS: BP 154/92
[2017-12-09 19:29] VITALS: BP 154/85
[2017-12-09] MEDS: traZODone HCL 50 MG TAB PO SCH (20:41)
[2017-12-09] MEDS: PRAVASTATIN SOD 20 MG TAB PO SCH (20:41)
[2017-12-09] MEDS: ACETAMINOPHEN 325 MG TAB PO PRN (21:13)
[2017-12-09 22:58] VITALS: BP 183/90
[2017-12-10] MEDS: MORPHINE 2 MG/ML SYR IVP PRN ×2 (01:43→02:34)
[2017-12-10] MEDS: IMIPENEM/CILASTA(*) 500MG VIAL 500 MG in NS(*) 0.9% 100 ML BAG 100 ML IVPB SCH ×4 (01:44→20:28)
[2017-12-10 03:05] VITALS: BP 144/78
[2017-12-10] MEDS: INSULIN HUM LISPRO 100 UN/ML 3 ML VIAL SUBQ PRN ×4 (08:44→21:07)
[2017-12-10 08:58] VITALS: BP 166/86
[2017-12-10] MEDS: TAMSULOSIN HCL 0.4 MG CAP PO SCH (09:01)
[2017-12-10] MEDS: PANTOPRAZOLE SOD 40 MG TABEC PO SCH (09:01)
[2017-12-10] MEDS: CITALOPRAM HYDROBROM 20 MG TAB PO SCH (09:01)
[2017-12-10] MEDS: ONDANSETRON 4 MG/2 ML VIAL IVP PRN (09:02)
[2017-12-10] MEDS: ACETAMINOPHEN 325 MG TAB PO PRN (09:02)
--- NOTE | 2017-12-10 10:25 | Hospitalist Progress Note ---
Subjective Progress Notes Subjective No new complaints. Physical Exam Vital Signs Date Time Temp Pulse Resp B/P (MAP) Pulse Ox O2 Delivery O2 Flow Rate FiO2 12/10/17 08:58 98.5 79 20 166/86 (112) 90 Room Air 12/10/17 03:05 1.0 Intake and Output 12/10/17 07:00 Intake Total 2027 ml Output Total 3950 ml Balance -1923 ml Intake Oral 780 ml IV Total 1247 ml Output Urine Total 3950 ml # Voids 8 # Bowel Movements 1 General Appearance: Alert, Awake, No Acute Distress Neuro: Other (Confused.) Eyes: PERRLA Cardiovascular: Regular Rate and Rhythm Respiratory: Clear to Auscultation GI: Soft and Non-Tender Extremities: Warm, Perfused Psych: Appropriate Mood & Affect Result Diagram: 12/09/1752812/09/17528 Assessment and Plan Problems: (1) Aspiration pneumonia Assessment & Plan: His chest x-ray did show a bilateral infiltrates. He was initially on empiric treatment with Primaxin and vancomycin. The vancomycin was discontinued today. His cultures have been negative. A speech therapy consult is pending. Cultures negative thus far. (2) Sepsis Status: Acute Assessment & Plan: He did have an elevated WBC, fever, and tachycardia. A lactate level was normal. These have all improved. (3) Nausea and vomiting Status: Acute Assessment & Plan: A CT scan of the abdomen and pelvis did not reveal an etiology. His symptoms have resolved without specific treatment. (4) DM2 (diabetes mellitus, type 2) Status: Chronic Assessment & Plan: He is on chronic treatment with 75/25 insulin. He was started on sliding scale level #2 only, but his BS have been high. Will start Humalog 75/25 at a lower dose than he takes at home and monitor.. (5) Alzheimer's dementia Status: Chronic Assessment & Plan: He is chronically on citalopram and trazodone which have helped sleep. (6) PVD (peripheral vascular disease) Status: Chronic Assessment & Plan: He has a h/o of vascular stent placement. (7) JENNY on CPAP Status: Chronic (8) Diabetes, polyneuropathy Status: Chronic Assessment & Plan: Holding chronic gabapentin secondary to AMS. Likely his AMS is due to infection. Will consider restarting gabapentin. (9) BPH (benign prostatic hyperplasia) Status: Chronic Assessment & Plan: Restared chronic tamsulosin which was held due to AMS. Time Spent on Plan of Care: < 30 min Exam Sepsis Risk: No Definite Risk Problem Qualifiers (1) Sepsis: Sepsis type: sepsis due to unspecified organism Qualified Codes: A41.9 - Sepsis, unspecified organism DERICK NIX MD Dec 10, 2017 10:25
[2017-12-10] MEDS: NYSTATIN 100,000 U/GM PWD 15GM TP SCH ×2 (10:57→21:06)
[2017-12-10] MEDS: LISPRO SUBQ SCH ×2 (12:07→17:28)
[2017-12-10] MEDS: INSULIN NPL SUBQ SCH ×2 (12:07→17:28)
--- NOTE | 2017-12-10 14:10 | Medical Nutrition Therapy ---
Nutrition Anthropometrics Height (Inches): 75.00 Height (Calculated Centimeters: [phone] Weight (Pounds): 213 Weight (Calculated Kilograms): 96.842 BMI: 26.7 Isaac Nutrition Score: Adequate Isaac Nutrition Risk Score: 18 Dietary Referral Nutrition Risk Factors: Special Diet Nutrition Risk Comment: Physical Findings Physical Appearance: Overweight BMI 25-29 Skin Appearance Skin Appearance: Edema Edema Location Modifier: Edema Location: Type of Edema: Degree of Edema: Gastrointestinal Symptoms GI Symtoms: Tube Present: Bowel Sounds: Recent Bowel Pattern: Stool Characteristics: Nutritional Diagnosis Nutritional Risk Acuity 2: Sepsis Nutritional Risk Acuity 3: Alzheimer's Past Medical History: Essential hypertension, JENNY on CPAP, hepititis B, cholecystectomy, tonsillectomy, Alzheimers Disease, depression, Hep B, type 2, atrial fibrilation, polyneuropathy, peripheral vascular dz Nutritional Acuity: 2-Moderate Nutrition Diagnosis: Increased Nutrient Needs Nutrition Etiology: Physiological Causes Nutrition Problem/Etiology/Sym: AEB sx sepsis Energy Requirement: 2300 (M- StJ) Protein Requirement: 96 (1gm/kg) Fluid Requirement: 2400 (25ml/kg) Diet Type: Diabetic Nutrition Intervention: Cont diet as ordered, Encourage intake Nutrition Monitoring & Eval RD Patient Assessment Time: [address] Assessment Type: RD Assessment Patient Nutrition Acuity: 2-Moderate Follow Up Date: Dec 11, 2017 Nutritional Comment: 12/08 Pt admitted for pneumonia with sepsis. Pt on diabetic diet. No intake reported at this time. Pt had N/V which might affect intake. Bg ranging 178-234. Alb 3.7. Will cont to monitor and encourage intake. BK 12/10 Swallow eval determined that pt can tolerate regular diet and thin liquids. Consuming 75-100% of most meals. Noting low H/H, Na 135, BG ranging btw 175-273, tot pro 5 and alb 2.8. Will cont to monitor and encourage intake. -JAMES JOHNSON Dec 10, 2017 14:10
[2017-12-10 15:45] VITALS: BP 122/67
[2017-12-10 19:47] VITALS: BP 118/74
[2017-12-10] MEDS: PRAVASTATIN SOD 20 MG TAB PO SCH (21:06)
[2017-12-10] MEDS: traZODone HCL 50 MG TAB PO SCH (21:06)
[2017-12-10 22:40] VITALS: BP 138/83
[2017-12-11] MEDS: IMIPENEM/CILASTA(*) 500MG VIAL 500 MG in NS(*) 0.9% 100 ML BAG 100 ML IVPB SCH ×2 (02:30→07:41)
[2017-12-11 02:33] VITALS: BP 132/70
[2017-12-11 06:49] LABS: PLATELET COUNT, AUTOMATED 116 K/uL (150-450)
[2017-12-11 07:37] VITALS: BP 153/74
[2017-12-11] MEDS: ONDANSETRON 4 MG/2 ML VIAL IVP PRN (07:41)
[2017-12-11] MEDS: ACETAMINOPHEN 325 MG TAB PO PRN ×2 (07:41→17:48)
[2017-12-11] MEDS: INSULIN NPL SUBQ SCH ×3 (07:42→16:30)
[2017-12-11] MEDS: INSULIN HUM LISPRO 100 UN/ML 3 ML VIAL SUBQ PRN ×3 (07:42→21:33)
[2017-12-11] MEDS: LISPRO SUBQ SCH ×3 (07:42→16:30)
[2017-12-11] MEDS: PANTOPRAZOLE SOD 40 MG TABEC PO SCH (08:24)
[2017-12-11] MEDS: CITALOPRAM HYDROBROM 20 MG TAB PO SCH (08:24)
[2017-12-11] MEDS: TAMSULOSIN HCL 0.4 MG CAP PO SCH (08:24)
[2017-12-11] MEDS: NYSTATIN 100,000 U/GM PWD 15GM TP SCH ×2 (08:24→21:33)
--- NOTE | 2017-12-11 11:28 | Medical Nutrition Therapy ---
Nutrition Anthropometrics Height (Inches): 75.00 Height (Calculated Centimeters: 190.475125 Weight (Pounds): 213 Weight (Calculated Kilograms): 96.842 BMI: 26.7 Isaac Nutrition Score: Adequate Isaac Nutrition Risk Score: 18 Dietary Referral Nutrition Risk Factors: Special Diet Nutrition Risk Comment: Nutritional Diagnosis Nutritional Risk Acuity 2: Sepsis Nutritional Risk Acuity 3: Alzheimer's Past Medical History: Essential hypertension, JENNY on CPAP, hepititis B, cholecystectomy, tonsillectomy, Alzheimers Disease, depression, Hep B, type 2, atrial fibrilation, polyneuropathy, peripheral vascular dz Nutritional Acuity: 2-Moderate Nutrition Diagnosis: Increased Nutrient Needs Nutrition Etiology: Physiological Causes Nutrition Problem/Etiology/Sym: AEB sx sepsis Energy Requirement: 2300 (M- StJ) Protein Requirement: 96 (1gm/kg) Fluid Requirement: 2400 (25ml/kg) Diet Type: Diabetic Nutrition Intervention: Cont diet as ordered, Encourage intake Nutrition Monitoring & Eval RD Patient Assessment Time: [address] Assessment Type: RD Re-Assessment Patient Nutrition Acuity: 2-Moderate Follow Up Date: Dec 14, 2017 Nutritional Comment: 12/08 Pt admitted for pneumonia with sepsis. Pt on diabetic diet. No intake reported at this time. Pt had N/V which might affect intake. Bg ranging 178-234. Alb 3.7. Will cont to monitor and encourage intake. BK 12/10 Swallow eval determined that pt can tolerate regular diet and thin liquids. Consuming 75-100% of most meals. Noting low H/H, Na 135, BG ranging btw 175-273, tot pro 5 and alb 2.8. Will cont to monitor and encourage intake. -EK 12/11 Pt cont to eat well. H/H remains low but BG in better control from yesterday ranging from 153-174. -JAMES JOHNSON Dec 11, 2017 11:27
[2017-12-11 11:31] VITALS: BP 134/94
[2017-12-11] MEDS ORDERED: AMPICILLIN/SULBACT (*) 3 GM VL 3 GM in NS(*) 0.9% 100 ML BAG 100 ML IVPB SCH (12:00)
[2017-12-11] MEDS: CLINDAMYCIN(*) 600 MG/NS 50 ML 50 ML IVPB SCH ×2 (14:11→21:33)
--- NOTE | 2017-12-11 14:11 | Hospitalist Progress Note ---
Subjective Progress Notes Subjective 77M admitted for respiratory failure. TONI overnight, doing better this am. Plan to evaluate and possibly discharge tomorrow to rehab/[facility]. Patient Complains of: Cardiovascular: No: Chest Pain Respiratory: No: Cough, Congestion, Shortness of Breath Physical Exam Vital Signs Date Time Temp Pulse Resp B/P (MAP) Pulse Ox O2 Delivery O2 Flow Rate FiO2 12/11/17 11:31 98.3 79 18 134/94 (107) 93 Nasal Cannula 0.5 Intake and Output 12/11/17 06:59 Intake Total 870 ml Balance 870 ml Intake Oral 560 ml IV Total 310 ml # Voids 6 General Appearance: Awake, No Acute Distress Neuro: No Gross deficits Eyes: PERRLA ENT: Normal Neck: No Masses Cardiovascular: Normal Rhythm & Peripheral Pulses Respiratory: No Respiratory Distress GI: Soft and Non-Tender Extremities: Soft and Non Tender, Warm, Pulses, Perfused Integumentary: Skin Intact without Lesion / Mass Result Diagram: 12/11/1753012/11/17530 Assessment and Plan Problems: (1) Aspiration pneumonia Assessment & Plan: His chest x-ray did show a bilateral infiltrates. He was initially on empiric treatment with Primaxin and vancomycin. The vancomycin was discontinued. His cultures have been negative. A speech therapy consult is pending. Narrowed ABx to clindamycin IV 12.11. If remains afebrile can likely complete therapy with PO clindamycin. (2) Sepsis Status: Acute Assessment & Plan: He did have an elevated WBC, fever, and tachycardia. A lactate level was normal. These have all improved. (3) Nausea and vomiting Status: Acute Assessment & Plan: A CT scan of the abdomen and pelvis did not reveal an etiology. His symptoms have resolved without specific treatment. (4) DM2 (diabetes mellitus, type 2) Status: Chronic Assessment & Plan: He is on chronic treatment with 75/25 insulin. He was started on sliding scale level #2 only, but his BS have been high. Will start Humalog 75/25 at a lower dose than he takes at home and monitor.. (5) Alzheimer's dementia Status: Chronic Assessment & Plan: He is chronically on citalopram and trazodone which have helped sleep. (6) PVD (peripheral vascular disease) Status: Chronic Assessment & Plan: He has a h/o of vascular stent placement. (7) JENNY on CPAP Status: Chronic (8) Diabetes, polyneuropathy Status: Chronic Assessment & Plan: Holding chronic gabapentin secondary to AMS, consider restarting gabapentin. (9) BPH (benign prostatic hyperplasia) Status: Chronic Assessment & Plan: On chronic tamsulosin. Exam Sepsis Risk: No Definite Risk Problem Qualifiers (1) Sepsis: Sepsis type: sepsis due to unspecified organism Qualified Codes: A41.9 - Sepsis, unspecified organism HANSA SNYDER DO Dec 11, 2017 14:11
[2017-12-11] MEDS ORDERED: NS(*) 0.9% 250 ML BAG 250 ML ONE (14:12)
[2017-12-11 17:44] VITALS: BP 151/82
[2017-12-11] MEDS: PRAVASTATIN SOD 20 MG TAB PO SCH (21:32)
[2017-12-11] MEDS: traZODone HCL 50 MG TAB PO SCH (21:32)
[2017-12-11 21:38] VITALS: BP 150/78
[2017-12-12 01:07] VITALS: BP 148/78
[2017-12-12] MEDS: CLINDAMYCIN(*) 600 MG/NS 50 ML 50 ML IVPB SCH ×3 (06:41→22:59)
[2017-12-12 07:52] VITALS: BP 160/84
[2017-12-12] MEDS: INSULIN NPL SUBQ SCH ×3 (08:00→17:14)
[2017-12-12] MEDS: LISPRO SUBQ SCH ×3 (08:00→17:14)
[2017-12-12] MEDS: INSULIN HUM LISPRO 100 UN/ML 3 ML VIAL SUBQ PRN ×2 (08:00→11:47)
[2017-12-12] MEDS: ACETAMINOPHEN 325 MG TAB PO PRN ×2 (08:05→15:37)
[2017-12-12] MEDS: CITALOPRAM HYDROBROM 20 MG TAB PO SCH (08:53)
[2017-12-12] MEDS: PANTOPRAZOLE SOD 40 MG TABEC PO SCH (08:53)
[2017-12-12] MEDS: TAMSULOSIN HCL 0.4 MG CAP PO SCH (08:53)
[2017-12-12] MEDS: NYSTATIN 100,000 U/GM PWD 15GM TP SCH ×2 (08:54→21:00)
[2017-12-12 10:50] VITALS: BP 149/108
--- NOTE | 2017-12-12 12:14 | Hospitalist Progress Note ---
Subjective Progress Notes Subjective The patient is without complaints. Family notes that he is still coughing. Physical Exam Vital Signs Date Time Temp Pulse Resp B/P (MAP) Pulse Ox O2 Delivery O2 Flow Rate FiO2 12/12/17 11:26 90 Nasal Cannula 2.0 12/12/17 10:50 98.2 76 18 149/108 (122) l Intake and Output 12/12/17 07:00 Intake Total 745 ml Balance 745 ml Intake Oral 540 ml IV Total 205 ml # Voids 9 General Appearance: Alert, Awake, No Acute Distress Respiratory: Clear to Auscultation Result Diagram: 12/12/17 0515 12/11/17 0531 Assessment and Plan Problems: (1) Aspiration pneumonia Assessment & Plan: His chest x-ray did show a bilateral infiltrates. He was initially on empiric treatment with Primaxin and vancomycin. The vancomycin was discontinued. His cultures have been negative. A speech therapy consult showed a minimal risk for aspiration. Afebrile. WBC wnl. On Clindamycin, since 12/11. Working with OT/PT to asses disposition status. (2) Sepsis Status: Acute Assessment & Plan: He did have an elevated WBC, fever, and tachycardia. A lactate level was normal. These have all improved. (3) Nausea and vomiting Status: Resolved Assessment & Plan: A CT scan of the abdomen and pelvis did not reveal an etiology. His symptoms have resolved without specific treatment. (4) DM2 (diabetes mellitus, type 2) Status: Chronic Assessment & Plan: He is on chronic treatment with 75/25 insulin, which has been restarted, but at a lower dose than he takes at home and monitor. (5) Alzheimer's dementia Status: Chronic Assessment & Plan: He is chronically on citalopram and trazodone which have helped sleep. (6) PVD (peripheral vascular disease) Status: Chronic Assessment & Plan: He has a h/o of vascular stent placement. (7) JENNY on CPAP Status: Chronic (8) Diabetes, polyneuropathy Status: Chronic Assessment & Plan: Holding chronic gabapentin secondary to AMS, but has been restarted. (9) BPH (benign prostatic hyperplasia) Status: Chronic Assessment & Plan: On chronic tamsulosin. Exam Sepsis Risk: No Definite Risk Problem Qualifiers (1) Sepsis: Sepsis type: sepsis due to unspecified organism Qualified Codes: A41.9 - Sepsis, unspecified organism BRUCE VACA MD Dec 12, 2017 12:14
[2017-12-12 15:31] VITALS: BP 162/114
[2017-12-12 16:00] VITALS: BP 157/80
[2017-12-12 19:17] VITALS: BP 159/74
[2017-12-12] MEDS: GABAPENTIN 300 MG CAP PO SCH (21:15)
[2017-12-12] MEDS: traZODone HCL 50 MG TAB PO SCH (21:15)
[2017-12-12] MEDS: PRAVASTATIN SOD 20 MG TAB PO SCH (21:15)
[2017-12-13 03:10] VITALS: BP 158/80
[2017-12-13 05:58] LABS: PLATELET COUNT, AUTOMATED 116 K/uL (150-450)
[2017-12-13] MEDS: CLINDAMYCIN(*) 600 MG/NS 50 ML 50 ML IVPB SCH ×3 (06:03→21:23)
[2017-12-13] MEDS: INSULIN NPL SUBQ SCH ×3 (06:13→17:30)
[2017-12-13] MEDS: LISPRO SUBQ SCH ×3 (06:13→17:30)
[2017-12-13 09:04] VITALS: BP 162/87
[2017-12-13] MEDS: PANTOPRAZOLE SOD 40 MG TABEC PO SCH (09:07)
[2017-12-13] MEDS: NYSTATIN 100,000 U/GM PWD 15GM TP SCH ×2 (09:07→21:25)
[2017-12-13] MEDS: TAMSULOSIN HCL 0.4 MG CAP PO SCH (09:07)
[2017-12-13] MEDS: CITALOPRAM HYDROBROM 20 MG TAB PO SCH (09:07)
[2017-12-13] MEDS ORDERED: CLIN300C99 PO (10:07)
--- NOTE | 2017-12-13 10:11 | Hospitalist Depart ---
Discharge Summary Reason for Hosp/Final Diag: (1) Aspiration pneumonia Hospital Course & Plan: His chest x-ray did show a bilateral infiltrates. He was initially on empiric treatment with Primaxin and vancomycin, but is now on monotherapy with clindamycin. His cultures have been negative and he is now afebrile. His WBC has also improved. He was evaluated by speech therapy, and was found to have minimal risk for aspiration. He will discharge to complete a course of oral clindamycin. (2) Sepsis Status: Acute Hospital Course & Plan: He did have an elevated WBC, fever, and tachycardia. A lactate level was normal. These have all improved. (3) Nausea and vomiting Status: Resolved Hospital Course & Plan: A CT scan of the abdomen and pelvis did not reveal an etiology. His symptoms have resolved without specific treatment. (4) DM2 (diabetes mellitus, type 2) Status: Chronic Hospital Course & Plan: He is on chronic treatment with 75/25 insulin. (5) Alzheimer's dementia Status: Chronic Hospital Course & Plan: He is chronically on citalopram and trazodone which momin ve helped sleep. (6) PVD (peripheral vascular disease) Status: Chronic Hospital Course & Plan: He has a h/o of vascular stent placement. (7) JENNY on CPAP Status: Chronic (8) Diabetes, polyneuropathy Status: Chronic Hospital Course & Plan: Holding chronic gabapentin secondary to AMS, but has been restarted. (9) BPH (benign prostatic hyperplasia) Status: Chronic Hospital Course & Plan: On chronic tamsulosin. Departure Latest Vital Signs Vital Signs 12/13/17 09:04 Temp 99.2 Pulse 83 Resp 20 B/P (MAP) 162/87 (112) Pulse Ox 89 O2 Delivery Room Air Weight (Pounds): 213 Weight (Ounces): 8.0 Result Diagram: 12/13/1752212/13/17522 Condition: Improved Discharge: Home, Home Health PT/OT Follow Up For: PT Evaluation and Treat, OT Evaluation and Treat Home Health RN Follow Up For: Medication Management, Nursing Assessment Discharge Instructions Home Meds Active Scripts Clindamycin Hcl (CLINDAMYCIN HCL) 300 Mg Capsule, 2 TAB PO Q6H, #32 CAPSULE Prov:ABDI FRASER DO 12/13/17 Insulin Npl/Insulin Lispro (HUMALOG MIX 75-25 KWIKPEN) 100 Unit/1 Ml Insuln.pen, 25-35 UNIT SQ TIDAC for 90 Days, #6 BOX 4 Refills 35 units before breakfast and lunch 25 units before dinner Prov:WERO GOSS MD 12/01/17 Omeprazole (OMEPRAZOLE) 40 Mg Capsule.dr, 1 CAP PO QDAY PRN for heartburn for 90 Days, #90 CAP 4 Refills Prov:WERO GOSS MD 11/09/17 Blood Sugar Diagnostic (ONE TOUCH ULTRA TEST STRIPS) 1 Each Strip, 1 STRIP ASDIRECTED QID for 90 Days, #4 BOX 4 Refills Use 1 strip to test glucose QID Length of need: 99 Months Diagnosis:Insulin Dependent Diabetes Mellitus Prov:WERO GOSS MD 09/19/17 Pravastatin Sodium (PRAVASTATIN SODIUM) 20 Mg Tablet, 1 TAB PO HS for 90 Days, #90 TAB 4 Refills Prov:WERO GOSS MD 09/07/17 Tamsulosin Hcl (FLOMAX) 0.4 Mg Cap.er.24h, 1 CAP PO QDAY for 90 Days, #90 CAPSULE 4 Refills Prov:WERO GOSS MD 09/07/17 Trazodone Hcl (TRAZODONE HCL) 50 Mg Tablet, 50 MG PO QHS for 90 Days, #90 TAB 4 Refills Prov:WERO GOSS MD 09/07/17 Citalopram Hydrobromide (CITALOPRAM HBR) 10 Mg Tablet, 10 MG PO QDAY for 90 Days, #90 TAB 4 Refills Prov:WERO GOSS MD 09/07/17 Gabapentin (GABAPENTIN) 300 Mg Capsule, 300 MG PO QHS for 90 Days, #90 CAPSULE 1 Refill Prov:WERO GOSS MD 09/07/17 Fluticasone Prop 50 Mcg Ns (FLONASE 50 MCG NS) 16 Gm [place].susp, 2 SPRAYS NS QDAY for 30 Days, #1 BOT Prov:WERO GOSS MD 03/25/17 Reported Medications Nitroglycerin (NITROGLYCERIN) 0.4 Mg Tab.subl, 1 TAB SL Q5MIN PRN for CHEST PAIN May repeat 3 times in 15 min 12/17/16 Multivitamin (MULTIVITAMINS) 1 Each Capsule, 1 EACH PO QDAY 12/17/16 Aspirin (ASPIRIN) 325 Mg Tablet, 1 TAB PO QDAY, TAB 10/20/15 Cholecalciferol (Vitamin D3) (VITAMIN D) 2,000 Unit Tablet, 1 TAB PO DAILY 09/05/15 Discontinued Reported Medications Fluticasone Prop 50 Mcg Ns (FLONASE 50 MCG NS) 16 Gm [place].susp, 2 SPRAY NS QDAY, BOT 2 sprays per nostril, per day 09/05/15 Diet: Diabetic Activity: As Tolerated Copies to: WERO GOSS MD ; Venous Thromboembolism Antithrombotics Is Pt On Any Antithrombotics?: No [id number] Certification Face to Face Home Health Certification Institutional Provider conducted the [id number] encounter. Electronic Undersigning Physician Certifies Home Health. I certify that the patient has been under my care and that I had a [id number] encounter that meets the physician igbo-[id number]-[id number] encounter requirements with this patient. This patient is home-bound due to safety issues and continues to require assistance with ADL's. I certify that based on my findings, that Nursing, Aides and the following Home Health services are medically necessary: Medical Necessity: Nursing, Rehab Date Face to Face Conducted: Dec 13, 2017 Problem Qualifiers (1) Sepsis: Sepsis type: sepsis due to unspecified organism Qualified Codes: A41.9 - Sepsis, unspecified organism ABDI FRASER DO Dec 13, 2017 10:11
[2017-12-13] MEDS: INSULIN HUM LISPRO 100 UN/ML 3 ML VIAL SUBQ PRN ×2 (12:18→17:29)
[2017-12-13] MEDS ORDERED: INFLUENZA VIRUS VAC 0.5ML SYR IM ONLY ONE (15:07)
[2017-12-13 15:14] VITALS: BP 172/89
[2017-12-13] MEDS: traZODone HCL 50 MG TAB PO SCH (21:23)
[2017-12-13] MEDS: PRAVASTATIN SOD 20 MG TAB PO SCH (21:23)
[2017-12-13] MEDS: GABAPENTIN 300 MG CAP PO SCH (21:23)
[2017-12-13 21:29] VITALS: BP 173/76
[2017-12-14] VITALS: BP 148/69
[2017-12-14] MEDS: CLINDAMYCIN(*) 600 MG/NS 50 ML 50 ML IVPB SCH (06:06)
[2017-12-14 06:07] VITALS: BP 156/79
[2017-12-14] MEDS: INSULIN NPL SUBQ SCH ×2 (07:18→11:23)
[2017-12-14] MEDS: LISPRO SUBQ SCH ×2 (07:18→11:23)
[2017-12-14 07:23] VITALS: BP 151/78
[2017-12-14] MEDS: INSULIN HUM LISPRO 100 UN/ML 3 ML VIAL SUBQ PRN ×2 (07:25→11:25)
[2017-12-14] MEDS ORDERED: DOXY-181 PO (07:44)
[2017-12-14] MEDS ORDERED: DOXYCYCLINE HYCL 100 MG TAB PO SCH (09:00)
[2017-12-14] MEDS: TAMSULOSIN HCL 0.4 MG CAP PO SCH (09:26)
[2017-12-14] MEDS: CLINDAMYCIN 150 MG CAP PO SCH ×2 (09:26→13:01)
[2017-12-14] MEDS: PANTOPRAZOLE SOD 40 MG TABEC PO SCH (09:27)
[2017-12-14] MEDS: CITALOPRAM HYDROBROM 20 MG TAB PO SCH (09:27)
[2017-12-14] MEDS: NYSTATIN 100,000 U/GM PWD 15GM TP SCH (09:27)
[2017-12-14 11:10] VITALS: BP 140/74
== END 2017-12-14 14:51 | disposition home health service (06) | DRG 177 ==
LOC: ER 20:56 → ICU 23:40 → MED 12-08 14:30
PROVIDERS: ADMIT Internal Medicine; ATTEND Internal Medicine
DX: J69.0 Pneumonitis due to inhalation of food and vomit (principal); A41.9 Sepsis, unspecified organism; I73.9 Peripheral vascular disease, unspecified; R11.2 Nausea with vomiting, unspecified; Z79.4 Long term (current) use of insulin; G47.33 Obstructive sleep apnea (adult) (pediatric); G30.9 Alzheimer's disease, unspecified; I10 Essential (primary) hypertension; Z23 Encounter for immunization; Z88.0 Allergy status to penicillin; Z88.8 Allergy status to other drugs, medicaments and biological substances; Z87.891 Personal history of nicotine dependence; E11.42 Type 2 diabetes mellitus with diabetic polyneuropathy; N40.1 Benign prostatic hyperplasia with lower urinary tract symptoms; Z95.820 Peripheral vascular angioplasty status with implants and grafts; Z99.89 Dependence on other enabling machines and devices; I48.91 Unspecified atrial fibrillation; Z96.643 Presence of artificial hip joint, bilateral; B18.2 Chronic viral hepatitis C; F02.80 Dementia in other diseases classified elsewhere, unspecified severity, without behavioral disturbance, psychotic disturbance, mood disturbance, and anxiety; R41.82 Altered mental status, unspecified
CPT/HCPCS: 36415; 36416; 70450; 71045; 71260; 74177; 80202; 81001; 82040; 82247; 82310; 82374; 82435; 82565; 82947; 82948; 83605; 84075; 84132; 84155; 84295; 84450; 84460; 84484; 84520; 85025; 85027; 85610; 85730; 87040; 87088; 87502; 90471; 90674; 93005; 97162; 97166; C9113; J0131; J0743; J1650; J1815; J2270; J2405; J2550; J3370; J3490; J7030; J7050; Q9967

== ENCOUNTER → 2017-12-07 | Outpatient (CLI) | payer MEDICARE, OTHER ==
[2017-04-06 09:20] VITALS: BMI 26.2
[~2017-12-07] MED LIST changes: +CLIN300C99 PO; +DOXY-181 PO
== END ==
LOC: AMB 19:45
PROVIDERS: ATTEND Nurse Practitioner
DX: R50.9 Fever, unspecified (principal); R53.1 Weakness; R11.10 Vomiting, unspecified; R00.0 Tachycardia, unspecified
CPT/HCPCS: A0425; A0427

== ENCOUNTER 2017-12-21 21:12 | Emergency (ER) | payer MEDICARE, OTHER ==
[2017-04-06 09:20] VITALS: BMI 26.2
--- NOTE | 2017-12-21 21:19 | ER Report ---
History and Physical Time Seen By MD: 21:19 HPI/ROS CHIEF COMPLAINT: chest pain HISTORY OF PRESENT ILLNESS: This is a 77 year old male. He had chest pain, substernal, start about 30 minutes prior to calling EMS. No radiation. Pressure feeling. No nausea. No abdominal pain. No sweats. Nothing makes the pain worse or better. No fever of chills. No cough. Feels like he is breathing well. Took full dose aspirin earlier today. Prolonged hospitalization for pneumonia recently, discharged a week ago. Allergies: Coded Allergies: Penicillins (Verified Allergy, Mild, HIVES, 12/22/17) niacin (Verified Allergy, Mild, 12/22/17) Home Meds Active Scripts Doxycycline Hyclate (DOXYCYCLINE HYCLATE) 100 Mg Capsule, 100 MG PO BID for 5 Days, #10 CAPSULE 0 Refills Prov:TOMAS NIX MD 12/14/17 Clindamycin Hcl (CLINDAMYCIN HCL) 300 Mg Capsule, 2 TAB PO Q6H, #32 CAPSULE Prov:ABDI FRASER DO 12/13/17 Insulin Npl/Insulin Lispro (HUMALOG MIX 75-25 KWIKPEN) 100 Unit/1 Ml Insuln.pen, 25-35 UNIT SQ TIDAC for 90 Days, #6 BOX 4 Refills 35 units before breakfast and lunch 25 units before dinner Prov:WERO GOSS MD 12/01/17 Omeprazole (OMEPRAZOLE) 40 Mg Capsule.dr, 1 CAP PO QDAY PRN for heartburn for 90 Days, #90 CAP 4 Refills Prov:WERO GOSS MD 11/09/17 One Touch Ultra Test Strips (ONE TOUCH ULTRA TEST STRIPS) 1 Each Strip, 1 STRIP ASDIRECTED QID for 90 Days, #4 BOX 4 Refills Use 1 strip to test glucose QID Length of need: 99 Months Diagnosis:Insulin Dependent Diabetes Mellitus Prov:WERO GOSS MD 09/19/17 Pravastatin Sodium (PRAVASTATIN SODIUM) 20 Mg Tablet, 1 TAB PO HS for 90 Days, #90 TAB 4 Refills Prov:WERO GOSS MD 09/07/17 Tamsulosin Hcl (FLOMAX) 0.4 Mg Cap.er.24h, 1 CAP PO QDAY for 90 Days, #90 CAPSULE 4 Refills Prov:WERO GOSS MD 7/18/18 Trazodone Hcl (TRAZODONE HCL) 50 Mg Tablet, 50 MG PO QHS for 90 Days, #90 TAB 4 Refills Prov:WERO GOSS MD 09/07/17 Citalopram Hydrobromide (CITALOPRAM HBR) 10 Mg Tablet, 10 MG PO QDAY for 90 Days, #90 TAB 4 Refills Prov:WERO GOSS MD 09/07/17 Gabapentin (GABAPENTIN) 300 Mg Capsule, 300 MG PO QHS for 90 Days, #90 CAPSULE 1 Refill Prov:WERO GOSS MD 09/07/17 Fluticasone Prop 50 Mcg Ns (FLONASE 50 MCG NS) 16 Gm [place].susp, 2 SPRAYS NS QDAY for 30 Days, #1 BOT Prov:WERO GOSS MD 03/25/17 Reported Medications Nitroglycerin (NITROGLYCERIN) 0.4 Mg Tab.subl, 1 TAB SL Q5MIN PRN for CHEST PAIN May repeat 3 times in 15 min 12/17/16 Multivitamin (MULTIVITAMINS) 1 Each Capsule, 1 EACH PO QDAY 12/17/16 Aspirin (ASPIRIN) 325 Mg Tablet, 1 TAB PO QDAY, TAB 10/20/15 Cholecalciferol (Vitamin D3) (VITAMIN D) 2,000 Unit Tablet, 1 TAB PO DAILY 09/05/15 Reviewed Nurses Notes: Yes Hx Smoking: Yes Smoking Status: Former Smoker Exposure to Second Hand Smoke?: No Hx Substance Use Disorder: No Hx Alcohol Use: No Constitutional Vital Sign - Last 24 Hours 12/21/17 12/21/17 12/21/17 12/21/17 21:12 21:16 21:19 21:30 Temp 97.6 Pulse ??? 72 Resp 17 B/P (MAP) 137/81 137/81 (99) 123/72 (89) Pulse Ox 94 O2 Delivery Room Air 12/21/17 12/21/17 12/21/17 12/21/17 21:42 22:00 22:13 22:30 Pulse 59 Resp 10 B/P (MAP) ???/??? (1665) 110/94 (99) 120/65 (83) Pulse Ox 91 12/21/17 12/21/17 12/21/17 12/21/17 22:42 23:00 23:13 23:30 Pulse 44 51 B/P (MAP) 128/79 (95) 113/63 (80) Pulse Ox 93 87 12/21/17 12/22/17 12/22/17 12/22/17 23:43 00:01 00:30 00:43 Pulse 50 55 B/P (MAP) 116/71 (86) 145/76 (99) Pulse Ox 94 93 Physical Exam General Appearance: The patient is alert. No acute distress. Eyes: Pupils are equal, round. No pallor, injection or icterus. ENT: Mucous membranes are moist. Normal oral mucosa. Posterior oropharynx is normal. Neck: Supple and non tender. Respiratory: Lungs are clear to auscultation. Cardiovascular: Regular rate and rhythm. No murmurs, gallops or rubs. Normal capillary refill. No edema. Gastrointestinal: Abdomen is soft and non tender. Nondistended. Normal active bowel sounds. Neurological: Alert and oriented x3. No focal neurologic deficits Skin: Warm and dry. No rashes. Musculoskeletal: Extremities are nontender. No tenderness in palpation of the back and spine. DIFFERENTIAL DIAGNOSIS: After history and physical exam, differential diagnosis was considered for chest pain including but not limited to myocardial ischemia, pericarditis pulmonary embolus, chest wall pain, pleural inflammation and pulmonary infectious causes. Medical Decision Making Data Points Result Diagram: 12/21/17205412/21/172054 Laboratory Hematology Test 12/21/17 20:55 Red Blood Count 4.32 M/uL (4.00-5.60) Mean Corpuscular Volume 94.4 fL (80.0-96.0) Mean Corpuscular Hemoglobin 32.0 pg (26.0-33.0) Mean Corpuscular Hemoglobin Concent 33.9 g/dL (32.0-36.0) Red Cell Distribution Width 13.6 % (11.5-14.5) Mean Platelet Volume 7.8 fL (7.2-11.1) Neutrophils (%) (Auto) 61.5 % (39.4-72.5) Lymphocytes (%) (Auto) 28.4 % (17.6-49.6) Monocytes (%) (Auto) 7.6 % (4.1-12.4) Eosinophils (%) (Auto) 1.7 % (0.4-6.7) Basophils (%) (Auto) 0.8 % (0.3-1.4) Nucleated RBC Relative Count (auto) 0.1 /100WBC Neutrophils # (Auto) 3.0 K/uL (2.0-7.4) Lymphocytes # (Auto) 1.4 K/uL (1.3-3.6) Monocytes # (Auto) 0.4 K/uL (0.3-1.0) Eosinophils # (Auto) 0.1 K/uL (0.0-0.5) Basophils # (Auto) 0.0 K/uL (0.0-0.1) Nucleated RBC Absolute Count (auto) 0.00 K/uL D-Dimer Quantitative (PE/DVT) 0.80 ug/ml (0-0.50) Sodium Level 141 mmol/L (137-145) Potassium Level 3.8 mmol/L (3.5-5.0) Chloride Level 101 mmol/L (98-107) Carbon Dioxide Level 29 mmol/L (22-30) Blood Urea Nitrogen 15 mg/dl (9-21) Creatinine 0.80 mg/dl (0.66-1.25) Glomerular Filtration Rate Calc > 60.0 Random Glucose 102 mg/dl (75-110) Calcium Level 9.6 mg/dl (8.4-10.2) Total Bilirubin 0.4 mg/dl (0.2-1.3) Aspartate Amino Transf (AST/SGOT) 23 U/L (0-35) Alanine Aminotransferase (ALT/SGPT) 40 U/L (0-56) Alkaline Phosphatase 82 U/L (0-126) Troponin I < 0.012 ng/ml Total Protein 7.5 g/dl (6.3-8.2) Albumin 4.0 g/dl (3.5-5.0) Chemistry Test 12/21/17 20:55 White Blood Count 5.0 k/uL (4.5-11.0) Red Blood Count 4.32 M/uL (4.00-5.60) Hemoglobin 13.8 g/dL (14.0-18.0) Hematocrit 40.7 % (42.0-52.0) Mean Corpuscular Volume 94.4 fL (80.0-96.0) Mean Corpuscular Hemoglobin 32.0 pg (26.0-33.0) Mean Corpuscular Hemoglobin Concent 33.9 g/dL (32.0-36.0) Red Cell Distribution Width 13.6 % (11.5-14.5) Platelet Count 230 K/uL (150-450) Mean Platelet Volume 7.8 fL (7.2-11.1) Neutrophils (%) (Auto) 61.5 % (39.4-72.5) Lymphocytes (%) (Auto) 28.4 % (17.6-49.6) Monocytes (%) (Auto) 7.6 % (4.1-12.4) Eosinophils (%) (Auto) 1.7 % (0.4-6.7) Basophils (%) (Auto) 0.8 % (0.3-1.4) Nucleated RBC Relative Count (auto) 0.1 /100WBC Neutrophils # (Auto) 3.0 K/uL (2.0-7.4) Lymphocytes # (Auto) 1.4 K/uL (1.3-3.6) Monocytes # (Auto) 0.4 K/uL (0.3-1.0) Eosinophils # (Auto) 0.1 K/uL (0.0-0.5) Basophils # (Auto) 0.0 K/uL (0.0-0.1) Nucleated RBC Absolute Count (auto) 0.00 K/uL D-Dimer Quantitative (PE/DVT) 0.80 ug/ml (0-0.50) Glomerular Filtration Rate Calc > 60.0 Calcium Level 9.6 mg/dl (8.4-10.2) Total Bilirubin 0.4 mg/dl (0.2-1.3) Aspartate Amino Transf (AST/SGOT) 23 U/L (0-35) Alanine Aminotransferase (ALT/SGPT) 40 U/L (0-56) Alkaline Phosphatase 82 U/L (0-126) Troponin I < 0.012 ng/ml Total Protein 7.5 g/dl (6.3-8.2) Albumin 4.0 g/dl (3.5-5.0) Coagulation Test 12/21/17 20:55 D-Dimer Quantitative (PE/DVT) 0.80 ug/ml EKG/Imaging EKG Interpretation 12 lead EKG: Rhythm: Sinus rhythm with first-degree AV block, rate 61 [place]: normal QRS: normal ST segments: normal Imaging EXAMINATION: Portable AP Chest HISTORY: Chest pain. COMPARISON: 12/07/2017. FINDINGS: Prior bilateral lower lung infiltrates have significantly improved and are essentially resolved. No evidence of any new or progressive consolidation. No pleural effusion or pneumothorax. Normal heart size and pulmonary vascularity, with normal cardiomediastinal contours. Visualized osseous structures appear intact. IMPRESSION: No evidence of acute cardiopulmonary disease. Prior lower lung infiltrates have essentially resolved. Report Dictated By: Carlos Velazco MD at 12/21/2017 9:[address] PE DATE: 12/21/2017 10:27 PM INDICATION: Chest pain. COMPARISON: Same-day radiograph, CT chest, abdomen and pelvis 12/07/2017. TECHNIQUE: Axial CT angiogram was obtained through the chest with intravenous contrast. Sagittal and coronal MPR and MIP coronal reformations were also generated. 75 mL isovue 370. One of the following dose optimization techniques was utilized in the performance of this exam: Automated exposure control; adjustment of the mA and/or kV according to the patient's size; or use of an iterative reconstruction technique. Specific details can be referenced in the facility's radiology CT exam operational policy. FINDINGS: Thyroid / Thoracic Inlet: No visualized thyroid nodule. Small cervical lymph nodes similar to prior. Pulmonary Arteries: No pulmonary embolism. Heart and Aorta: Normal-size heart with no pericardial effusion. Marked coronary artery calcification. Nonaneurysmal thoracic aorta. Mediastinum and Sonia: Mildly prominent mediastinal and hilar lymph nodes are likely reactive. Lungs and Pleura: Trace left pleural effusion. Persistent but decreased bilateral lower lobe nodular opacities. One of the largest is in the left upper lobe, measuring approximately 9 x 8 mm on image 154 series 4. No pneumothorax. Breast and Axilla: No axillary lymphadenopathy. Upper Abdomen: No visualized acute abnormality. Cholecystectomy. Bones and Soft Tissues: No suspicious osseous or soft tissue abnormality. Pectus carinatum. IMPRESSION: 1. No pulmonary embolism. 2. Persistent but decreased bilateral lower lobe nodular opacities, likely at least partially infectious/inflammatory. Consider 3-6 month follow-up. 3. Marked coronary artery calcification. Report Dictated By: Edson Joel MD at 12/21/2017 10:27 PM ED Course/Re-evaluation Clinical Indication for ER IV: IV Access ED Course Initial evaluation shows normal labs, EKG, and chest x-ray other than the d- dimer. CTA done and negative. Reviewed with the patient and his . Repeat troponin negative as well. Decision to Disposition Date: Dec 22, 2017 Decision to Disposition Time: 01:02 Depart Departure Latest Vital Signs Vital Signs Date Time Temp Pulse Resp B/P (MAP) Pulse Ox O2 Delivery O2 Flow Rate FiO2 12/22/17 00:43 55 93 12/22/17 00:30 145/76 (99) 12/21/17 21:42 10 12/21/17 21:16 97.6 Room Air Impression: Primary Impression: Chest pain Condition: Improved Disposition: HOME OR SELF-CARE Referrals: WERO GOSS MD (PCP) Patient Instructions: Chest Pain (ED) Additional Instructions: We did not find a dangerous cause of your chest pain tonight. No sign of a heart attack on EKG and labs. No pneumonia and no blood clots in the lungs. Consider trial of antacids. Call your regular doctor or human resources support specialist for follow-up in the next 5-10 days. Problem Qualifiers Primary Impression: Chest pain Chest pain type: unspecified Qualified Codes: R07.9 - Chest pain, unspecified ALYSA BAEZ MD Dec 21, 2017 21:19
--- NOTE | 2017-12-21 21:43 | EKG ---
FACILITY: PATIENT NAME: DANIELLE REICH : [id number] MR: [id number] V: [id number] EXAM DATE: ORDERING PHYSICIAN: ALYSA BAEZ TECHNOLOGIST: JODI Carter Reason : Blood Pressure : / mmHG Vent. Rate : 061 BPM Atrial Rate : 061 BPM P-R Int : 266 ms QRS Dur : 094 ms QT Int : 450 ms P-R-T Axes : 064 -27 026 degrees QTc Int : 453 ms Sinus rhythm with 1st degree AV block Otherwise normal ECG When compared with ECG of 07-DEC-2017 20:34, LA interval has increased Vent. rate has decreased BY 76 BPM Borderline criteria for Anterior infarct are no longer present Confirmed by ABDI FRASER ([id number]) on 12/22/2017 6:25:13 AM Referred By: Confirmed By:ABDI FRASER
[2017-12-21 21:44] LABS: PLATELET COUNT, AUTOMATED 230 K/uL (150-450)
--- NOTE | 2017-12-21 21:58 | RADIOLOGY IMAGING REPORT ---
FACILITY: [facility] [place] PATIENT NAME: Pato Gutierrez : 1940 MR: [id number] V: [id number] EXAM DATE: ORDERING PHYSICIAN: ALYSA BAEZ TECHNOLOGIST: Location: [facility] Patient: Pato Gutierrez : 1940 Visit/Account:[id number] Date of Sevice: 12/21/2017 EXAMINATION: Portable AP Chest HISTORY: Chest pain. COMPARISON: 12/07/2017. FINDINGS: Prior bilateral lower lung infiltrates have significantly improved and are essentially resolved. No e vidence of any new or progressive consolidation. No pleural effusion or pneumothorax. Normal heart size and pulmonary vascularity, with normal cardiomediastinal contours. Visualized osseous structures appear intact. IMPRESSION: No evidence of acute cardiopulmonary disease. Prior lower lung infiltrates have essentially resolved. Report Dictated By: Carlos Velazco MD at 12/21/2017 9:49 PM Report E-Signed By: Carlos Velazco MD at 12/21/2017 9:53 PM WSN:[id number]
[2017-12-21] MEDS ORDERED: IOPAMIDOL 76% 75 ML INFUS BTL 75 ML ONE (22:01)
[2017-12-21] MEDS ORDERED: NS(*) 0.9% 50 ML BAG 50 ML ONE (22:01)
--- NOTE | 2017-12-21 22:40 | RADIOLOGY IMAGING REPORT ---
FACILITY: [facility] PATIENT NAME: Pato Gutierrez : 1940 MR: [id number] V: [id number] EXAM DATE: [id number] ORDERING PHYSICIAN: ALYSA BAEZ TECHNOLOGIST: Location: [facility] Patient: Pato Gutierrez : 1940 Visit/Account:[id number] Date of Sevice: 12/21/2017 CT PE DATE: 12/21/2017 10:27 PM INDICATION: Chest pain. COMPARISON: Same-day radiograph, CT chest, abdomen and pelvis 12/07/2017. TECHNIQUE: Axial CT angiogram was obtained through the chest with intravenous contrast. Sagittal an d coronal MPR and MIP coronal reformations were also generated. 75 mL isovue 370. One of the follow ing dose optimization techniques was utilized in the performance of this exam: Automated exposure con trol; adjustment of the mA and/or kV according to the patient's size; or use of an iterative reconst ruction technique. Specific details can be referenced in the facility's radiology CT exam operationa l policy. FINDINGS: Thyroid / Thoracic Inlet: No visualized thyroid nodule. Small cervical lymph nodes similar to prior . Pulmonary Arteries: No pulmonary embolism. Heart and Aorta: Normal-size heart with no pericardial effusion. Marked coronary artery calcificati on. Nonaneurysmal thoracic aorta. Mediastinum and Sonia: Mildly prominent mediastinal and hilar lymph nodes are likely reactive. Lungs and Pleura: Trace left pleural effusion. Persistent but decreased bilateral lower lobe nodular opacities. One of the largest is in the left upper lobe, measuring approximately 9 x 8 mm on image 154 series 4. No pneumothorax. Breast and Axilla: No axillary lymphadenopathy. Upper Abdomen: No visualized acute abnormality. Cholecystectomy. Bones and Soft Tissues: No suspicious osseous or soft tissue abnormality. Pectus carinatum. IMPRESSION: 1. No pulmonary embolism. 2. Persistent but decreased bilateral lower lobe nodular opacities, likely at least partially infect ious/inflammatory. Consider 3-6 month follow-up. 3. Marked coronary artery calcification. Report Dictated By: Edson Joel MD at 12/21/2017 10:27 PM Report E-Signed By: Edson Joel MD at 12/21/2017 10:37 PM WSN:[id number]
[2017-12-22 00:30] VITALS: BP 145/76
== END 2017-12-22 01:12 | disposition home or self-care (01) ==
LOC: ER 21:24
DX: R07.9 Chest pain, unspecified (principal); I44.0 Atrioventricular block, first degree
CPT/HCPCS: 71045; 71275; 84484; 85025; 85379; 93005; 99284; J7050; Q9967; 82040; 82247; 82310; 82374; 82435; 82565; 82947; 84075; 84132; 84155; 84295; 84450; 84460; 84520

== ENCOUNTER → 2017-12-21 | Outpatient (CLI) | payer MEDICARE, OTHER ==
[2017-04-06 09:20] VITALS: BMI 26.2
[~2017-12-21] MED LIST changes: +CLIN300C99 PO; +DOXY-181 PO
== END ==
LOC: AMB 20:48
PROVIDERS: ATTEND Nurse Practitioner
DX: R07.89 Other chest pain (principal)
CPT/HCPCS: A0425; A0427

== ENCOUNTER 2018-01-13 15:03 | Emergency (ER) | payer MEDICARE, OTHER ==
[2017-04-06 09:20] VITALS: Wt 97.5 kg
--- NOTE | 2018-01-13 15:20 | ER Report ---
History and Physical Time Seen By MD: 15:21 Hx. of Stated Complaint: patient states that he has terrible neck and right shoulder pain that started 2 days ago; patient states that he has not felt like taking his medications because be could not sit up today (BENEDICT KIM DO) HPI/ROS CHIEF COMPLAINT: NECK PAIN DOWN RIGHT ARM HISTORY OF PRESENT ILLNESS: pt states that yesterday he started with some pain on lower aspect of his neck with radiation to his right shoulder that is 9/10 sharp and burning. Pt is unable to turn his neck secondary to the pain. Pt does not recall any trauma. States it started yesterday but today when he woke up it was worse. Pt not sure of any herniated disc in his neck. No arm weakness. tried shaun drew but states the lotion felt "too cold on his neck". no fevers. no c hills. Pt denies nausea but states since the pain started he also has some epigastric discomfort but not as severe. did not take any of his medications today due to "i am in too much pain". REVIEW OF SYSTEMS: Constitutional: No fever, no chills. Eyes: No discharge. ENT: No sore throat. Cardiovascular: No chest pain, no palpitations. Respiratory: No cough, no shortness of breath. Gastrointestinal: + abdominal pain, no vomiting. Genitourinary: No hematuria. Musculoskeletal: + neck pain with radiation to right shoulder Skin: No rashes. Neurological: No headache. (BENEDICT KIM DO) Allergies: Coded Allergies: Penicillins (Verified Allergy, Mild, HIVES, 12/22/17) niacin (Verified Allergy, Mild, 12/22/17) Home Meds Active Scripts Methylprednisolone (METHYLPREDNISOLONE) 4 Mg Tab.ds.pk, 4 MG PO DIRECTED, #1 PACK 0 Refills Prov:ALYSA HACKETT MD 01/13/18 Hydrocodone Bit/Acetaminophen (HYDROCODON-ACETAMINOPHEN 5-325) 1 Each Tablet, 1 EACH PO Q4H PRN for PAIN, #12 TAB 0 Refills Prov:ALYSA HACKETT MD 01/13/18 Ketoconazole (KETOCONAZOLE) 120 Ml Shampoo, 120 ML TP 2XW, #120 TUBE Prov:BENEDICT KIM DO 01/13/18 Doxycycline Hyclate (DOXYCYCLINE HYCLATE) 100 Mg Capsule, 100 MG PO BID for 5 Days, #10 CAPSULE 0 Refills Prov:TOMAS NIX MD 12/14/17 Clindamycin Hcl (CLINDAMYCIN HCL) 300 Mg Capsule, 2 TAB PO Q6H, #32 CAPSULE Prov:ABDI FRASER DO 12/13/17 Insulin Npl/Insulin Lispro (HUMALOG MIX 75-25 KWIKPEN) 100 Unit/1 Ml Insuln.pen, 25-35 UNIT SQ TIDAC for 90 Days, #6 BOX 4 Refills 35 units before breakfast and lunch 25 units before dinner Prov:WERO GOSS MD 12/01/17 Omeprazole (OMEPRAZOLE) 40 Mg Capsule.dr, 1 CAP PO QDAY PRN for heartburn for 90 Days, #90 CAP 4 Refills Prov:WERO GOSS MD 11/09/17 One Touch Ultra Test Strips (ONE TOUCH ULTRA TEST STRIPS) 1 Each Strip, 1 STRIP ASDIRECTED QID for 90 Days, #4 BOX 4 Refills Use 1 strip to test glucose QID Length of need: 99 Months Diagnosis:Insulin Dependent Diabetes Mellitus Prov:WERO GOSS MD 09/19/17 Pravastatin Sodium (PRAVASTATIN SODIUM) 20 Mg Tablet, 1 TAB PO HS for 90 Days, #90 TAB 4 Refills Prov:WERO GOSS MD 09/07/17 Tamsulosin Hcl (FLOMAX) 0.4 Mg Cap.er.24h, 1 CAP PO QDAY for 90 Days, #90 CAPSULE 4 Refills Prov:WERO GOSS MD 09/07/17 Trazodone Hcl (TRAZODONE HCL) 50 Mg Tablet, 50 MG PO QHS for 90 Days, #90 TAB 4 Refills Prov:WERO GOSS MD 09/07/17 Citalopram Hydrobromide (CITALOPRAM HBR) 10 Mg Tablet, 10 MG PO QDAY for 90 Days, #90 TAB 4 Refills Prov:WERO GOSS MD 09/07/17 Gabapentin (GABAPENTIN) 300 Mg Capsule, 300 MG PO QHS for 90 Days, #90 CAPSULE 1 Refill Prov:WERO GOSS MD 09/07/17 Fluticasone Prop 50 Mcg Ns (FLONASE 50 MCG NS) 16 Gm [place].susp, 2 SPRAYS NS QDAY for 30 Days, #1 BOT Prov:WERO GOSS MD 03/25/17 Reported Medications Nitroglycerin (NITROGLYCERIN) 0.4 Mg Tab.subl, 1 TAB SL Q5MIN PRN for CHEST PAIN May repeat 3 times in 15 min 12/17/16 Multivitamin (MULTIVITAMINS) 1 Each Capsule, 1 EACH PO QDAY 12/17/16 Aspirin (ASPIRIN) 325 Mg Tablet, 1 TAB PO QDAY, TAB 10/20/15 Cholecalciferol (Vitamin D3) (VITAMIN D) 2,000 Unit Tablet, 1 TAB PO DAILY 09/05/15 Past Medical/Surgical History Pmhx: htn, pneumonia, cad, sepsis, dm2, dementia, sleep apnea, pvd, sleep apnea (BENEDICT KIM DO) Reviewed Nurses Notes: Yes Old Medical Records Reviewed: Yes (BENEDICT KIM DO) Hx Smoking: Yes Smoking Status: Former Smoker Exposure to Second Hand Smoke?: No Hx Substance Use Disorder: No Hx Alcohol Use: No (BENEDICT KIM DO) Constitutional Vital Sign - Last 24 Hours 01/13/18 01/13/18 01/13/18 01/13/18 15:13 15:13 15:15 15:30 Temp 98.3 Pulse 83 Resp 18 B/P (MAP) 157/108 (124) 157/108 155/83 (107) 156/99 (118) Pulse Ox 94 O2 Delivery Room Air 01/13/18 01/13/18 01/13/18 01/13/18 15:33 15:45 15:50 15:59 Pulse 81 81 Resp 7 B/P (MAP) 156/90 (112) Pulse Ox 90 93 O2 Flow Rate 2.0 01/13/18 01/13/18 01/13/18 01/13/18 17:20 17:25 17:55 18:25 Pulse 85 83 86 83 Resp 21 24 12 25 Pulse Ox 94 96 01/13/18 01/13/18 01/13/18 01/13/18 18:55 18:55 19:25 19:55 Pulse 87 87 89 85 Resp 6 6 16 23 Pulse Ox 95 95 94 01/13/18 01/13/18 01/13/18 01/13/18 20:00 20:30 20:43 21:00 Pulse 84 83 Resp 17 15 20 B/P (MAP) 172/87 (115) Pulse Ox 92 93 97 ([facility]) Physical Exam General Appearance: The patient is alert, has no immediate need for airway protection and no signs of toxicity. Eyes: Pupils equal and round no pallor or injection, EOMI ENT: no pharyngeal erythema or exudates, Mucous membranes are moist Respiratory: There are no retractions, lungs are clear to auscultation. Cardiovascular: Regular rate and rhythm. pulses are equal and symmetrical Gastrointestinal: Abdomen is soft and non tender, no masses, bowel sounds normal, no guarding, no rigidity or rebound Neurological: Cranial nerves II-XII grossly intact, no sensory or motor loss Skin: Warm and dry, + redness and scaling of skin on scalp Musculoskeletal: Neck is tender midline C4-6, + crepitus wtih range of motion to right shoulder Extremitiesare nonswollen and have full range of motion. No identifiable weakness with muscle strength upper extremities DIFFERENTIAL DIAGNOSIS: After history and physical exam differential diagnosis was considered for herniated disc of cervical spine, osteoarthritis, rotator cuff injury, htn cad, pancretitis (JULIO,BENEDICT V DO) Medical Decision Making Data Points Result Diagram: 01/13/18 1547 01/13/18 1547 Laboratory Hematology Test 01/13/18 15:47 01/13/18 18:59 01/13/18 19:53 Red Blood Count 4.60 M/uL (4.00-5.60) Mean Corpuscular Volume 92.0 fL (80.0-96.0) Mean Corpuscular Hemoglobin 31.4 pg (26.0-33.0) Mean Corpuscular Hemoglobin Concent 34.1 g/dL (32.0-36.0) Red Cell Distribution Width 13.7 % (11.5-14.5) Mean Platelet Volume 8.7 fL (7.2-11.1) Neutrophils % (Manual) 85 % (39.4-72.5) Lymphocytes % (Manual) 10 % (17.6-49.6) Monocytes % (Manual) 4 % (4.1-12.4) Eosinophils % (Manual) 1 % (0.4-6.7) Basophils % (Manual) 0 % (0.3-1.4) Sodium Level 137 mmol/L (137-145) Potassium Level 4.1 mmol/L (3.5-5.0) Chloride Level 102 mmol/L (98-107) Carbon Dioxide Level 26 mmol/L (22-30) Blood Urea Nitrogen 11 mg/dl (9-21) Creatinine 0.80 mg/dl (0.66-1.25) Glomerular Filtration Rate Calc > 60.0 Random Glucose 242 mg/dl (75-110) Calcium Level 9.4 mg/dl (8.4-10.2) Total Bilirubin 1.0 mg/dl (0.2-1.3) Aspartate Amino Transf (AST/SGOT) 17 U/L (0-35) Alanine Aminotransferase (ALT/SGPT) 31 U/L (0-56) Alkaline Phosphatase 91 U/L (0-126) Total Protein 7.6 g/dl (6.3-8.2) Albumin 4.2 g/dl (3.5-5.0) Lipase 64 U/L (23-300) Troponin I 0.029 ng/ml Whole Blood Glucose 268 mg/DL (75-110) Chemistry Test 01/13/18 15:47 01/13/18 18:59 01/13/18 19:53 White Blood Count 6.0 k/uL (4.5-11.0) Red Blood Count 4.60 M/uL (4.00-5.60) Hemoglobin 14.4 g/dL (14.0-18.0) Hematocrit 42.3 % (42.0-52.0) Mean Corpuscular Volume 92.0 fL (80.0-96.0) Mean Corpuscular Hemoglobin 31.4 pg (26.0-33.0) Mean Corpuscular Hemoglobin Concent 34.1 g/dL (32.0-36.0) Red Cell Distribution Width 13.7 % (11.5-14.5) Platelet Count 125 K/uL (150-450) Mean Platelet Volume 8.7 fL (7.2-11.1) Neutrophils % (Manual) 85 % (39.4-72.5) Lymphocytes % (Manual) 10 % (17.6-49.6) Monocytes % (Manual) 4 % (4.1-12.4) Eosinophils % (Manual) 1 % (0.4-6.7) Basophils % (Manual) 0 % (0.3-1.4) Glomerular Filtration Rate Calc > 60.0 Calcium Level 9.4 mg/dl (8.4-10.2) Total Bilirubin 1.0 mg/dl (0.2-1.3) Aspartate Amino Transf (AST/SGOT) 17 U/L (0-35) Alanine Aminotransferase (ALT/SGPT) 31 U/L (0-56) Alkaline Phosphatase 91 U/L (0-126) Total Protein 7.6 g/dl (6.3-8.2) Albumin 4.2 g/dl (3.5-5.0) Lipase 64 U/L (23-300) Troponin I 0.029 ng/ml Whole Blood Glucose 268 mg/DL (75-110) (ALYSA HACKETT MD) EKG/Imaging Imaging arthritis at ac shoulder joint; no fx Cardiomegally with napd on xray (BENEDICT KIM DO) ED Course/Re-evaluation ED Course check labs, xray and Mri of c-spine 01/13/2018 6:00:44 pm awaiting MRI results. Signed out to Dr. Hackett ending troponin. (BENEDICT KIM DO) ED Course Discussed this patient with Dr. Kim at shift change and assumed care. MRI of the cervical spine was done showing multi-level degenerative disc disease, spinal stenosis and neuroforaminal stenosis as noted above. Repeat troponin was performed and was negative. The patient is still somewhat sedated from the medication used for the MRI. We did give the patient some time and it did seem to improve. He still is having pain and a little weak but after discussion with the family, they will be returning home. Recommended that a steroid treatment as well as pain medicine and follow up with [facility]. 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 Condition: Improved Disposition: HOME OR SELF-CARE Referrals: WERO GOSS MD (PCP) New Scripts Methylprednisolone (METHYLPREDNISOLONE) 4 Mg Tab.ds.pk 4 MG PO DIRECTED, #1 PACK 0 Refills Prov: ALYSA HACKETT MD 01/13/18 Hydrocodone Bit/Acetaminophen (HYDROCODON-ACETAMINOPHEN 5-325) 1 Each Tablet 1 EACH PO Q4H PRN for PAIN, #12 TAB 0 Refills Prov: ALYSA HACKETT MD 01/13/18 Ketoconazole (KETOCONAZOLE) 120 Ml Shampoo 120 ML TP 2XW, #120 TUBE Prov: BENEDICT KIM DO 01/13/18 Patient Instructions: Degenerative Disc Disease (ED), Seborrheic Dermatitis (GEN) Additional Instructions: To help with your scaling on your scalp I have provided you with a script for ketoconazole shampoo to use twice a week. Lortab 5/325, one every 4 hours as needed for pain. Medrol Dosepak over the next 6 days. Call and arrange a follow-up appointment with Dr. Sandra or Dr. Grossman at [facility] for further evaluation. 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
[2018-01-13] MEDS ORDERED: ORPHENADRINE 60MG/2ML INJ IVP ONE (15:30)
[2018-01-13] MEDS ORDERED: MORPHINE 2 MG/ML SYR IVP ONE (15:30)
[2018-01-13 15:55] LABS: PLATELET COUNT, AUTOMATED 125 K/uL (150-450)
--- NOTE | 2018-01-13 16:41 | RADIOLOGY IMAGING REPORT ---
FACILITY: [facility] [place] PATIENT NAME: Pato Gutierrez : 1940 MR: [id number] V: [id number] EXAM DATE: ORDERING PHYSICIAN: BENEDICT KIM TECHNOLOGIST: [place] [facility] [place]o Gutier[place] : 1940 Visit/Account:[id number] Date of Sevice: 01/13/2018 CHEST PA AND LAT Indication: PAIN Comparison: Chest x-ray 12/21/2017 Findings: Lungs: Clear. Mediastinum/pulmonary vasculature: Mohit is unchanged. Pulmonary vasculature is distinct. Bones/soft tissues: Normal. IMPRESSION: 1. Clear lungs. 2. Cardiomegaly without evidence of CHF Report Dictated By: Mckay Powers at 01/13/2018 4:28 PM Report E-Signed By: Mckay Powers at 01/13/2018 4:37 PM WSN:[email or web address]
--- NOTE | 2018-01-13 16:42 | RADIOLOGY IMAGING REPORT ---
[place] [facility] [place] NAME: Pato Gutierrez : 1940 MR: [id number] V: [id number] EXAM DATE: ORDERING PHYSICIAN: BENEDICT KIM TECHNOLOGIST: Location: [facility] Patient: Pato Gutierrez : 1940 Visit/Account:[id number] Date of Sevice: 01/13/2018 SHOULDER MIN 2 VIEWS RIGHT Indication: PAIN Comparison: None. Findings: The clavicle, scapula, and proximal humerus are intact. There is spurring at the right AC joint. The visualized right ribs are normal. IMPRESSION: 1. No evidence of fracture. 2. Moderate osteoarthritic degenerative changes of the right AC joint. Report Dictated By: Mckay Powers at 01/13/2018 4:37 PM Report E-Signed By: Mckay Powers at 01/13/2018 4:38 PM WSN:[email or web address]
[2018-01-13] MEDS ORDERED: LORazepam 2 MG/ML VIAL IVP ONE (16:50)
[2018-01-13] MEDS ORDERED: KETO120S14 TP (17:36)
--- NOTE | 2018-01-13 17:52 | EKG ---
FACILITY: [facility] PATIENT NAME: DANIELLE REICH : [id number] MR: [id number] V: [id number] EXAM DATE: ORDERING PHYSICIAN: BENEDICT KIM TECHNOLOGIST: Test Reason : neck pain Blood Pressure : / mmHG Vent. Rate : 083 BPM Atrial Rate : 084 BPM P-R Int : 000 ms QRS Dur : 090 ms QT Int : 388 ms P-R-T Axes : 000 -24 041 degrees QTc Int : 455 ms Accelerated Junctional rhythm Septal infarct , age undetermined Abnormal ECG When compared with ECG of 21-DEC-2017 21:26, Junctional rhythm has replaced Sinus rhythm Septal infarct is now present Confirmed by ABDI FRASER ([id number]) on 01/13/2018 6:37:08 PM Referred By: Confirmed By:ABDI FRASER
--- NOTE | 2018-01-13 18:06 | RADIOLOGY IMAGING REPORT ---
FACILITY: [facility] [place] PATIENT NAME: Pato Gutierrez : 1940 MR: [id number] V: [id number] EXAM DATE: ORDERING PHYSICIAN: BENEDICT KIM TECHNOLOGIST: Location: [facility] Patient: Pato Gutierrez : 1940 Visit/Account:[id number] Date of Sevice: 01/13/2018 EXAMINATION: Cervical spine MRI without IV contrast HISTORY: Shoulder pain with radiation to right shoulder. COMPARISON: MRI of the cervical spine from 04/20/[address] of the cervical spine from 09/07/2015. TECHNIQUE: Multi-planar, multi-sequence cervical spine MRI was performed without intravenous contras t administration. FINDINGS: Images are degraded by motion artifact. Alignment: There is 2 mm anterolisthesis of C3 on C4. There is 3 mm anterolisthesis of C4 on C5. Ther e is 3 mm retrolisthesis of C5 on C6. Vertebral marrow signal: There is a 7 mm T2 hyperintense/T1 hypointense lesion in the left side of th e C7 vertebral body, new compared with previous MRI. Cranio-cervical junction: Negative. Visualized posterior fossa: Negative. Soft tissues: Negative. Cervical cord: No definite signal abnormality in the cervical cord. There is motion artifact through the cord. Disc Spaces: C2-3: Mild spinal canal stenosis at C2-3 secondary to posterior disc osteophyte complex. There is rig ht greater than left facet hypertrophy. The right neural foramen is mildly narrowed. C3-4: Mild anterolisthesis of C3 on C4 with posterior disc osteophyte complex. There is moderate cent ral spinal canal stenosis. There is bilateral facet hypertrophy. Uncovertebral spurring, more promine nt on the right. There is moderate right and mild left neural foraminal stenosis. C4-5: There is mild anterolisthesis of C4 on C5 with posterior disc osteophyte complex. There is mild central spinal canal stenosis. There is bilateral facet hypertrophy. Bilateral uncovertebral spurrin g. There is mild left and moderate right neural foraminal stenosis. C5-6: There is mild retrolisthesis of C5 on C6. There is posterior disc osteophyte complex. There is mild to moderate central spinal canal stenosis. There is bilateral uncovertebral spurring. There is m ild left and moderate to severe right neural foraminal stenosis. C6-7: Posterior disc osteophyte complex causes mild central spinal canal stenosis. There is bilateral uncovertebral spurring with moderate right and mild left neural foraminal narrowing. C7-T1: Mild posterior disc osteophyte complex slightly indents the ventral thecal sac. No neural fora shamir stenosis. Upper thoracic spine: Small disc bulges at T1-2 and T2-3 slightly indent the ventral thecal sac. IMPRESSION: Images are degraded by motion artifact which limits evaluation. No definite signal abnormality in the cervical cord. Multilevel disc and facet degenerative changes in the cervical spine with multilevel listhesis. Multilevel central spinal canal stenosis is greatest at the C3-4 level where there is moderate centra l spinal canal stenosis. There is multilevel neural foraminal stenosis, however, evaluation of the degree of neural foraminal stenosis is limited by the motion artifact. Please see the body of report for description of the chula vidual levels. There is a 7 mm T2 hyperintense focus in the C7 vertebral body which is new since the previous MRI in 2012. This is of uncertain etiology. A metastatic lesion is not excluded. Consider follow-up examina tion to assess for stability or growth. Report Dictated By: Gab Huerta MD at 01/13/2018 5:34 PM Report E-Signed By: Gab Huerta MD at 01/13/2018 6:03 PM WSN:[id number]
[2018-01-13 20:43] VITALS: BP 172/87
[2018-01-13] MEDS ORDERED: LOR5/325 PO (20:46)
[2018-01-13] MEDS ORDERED: METH4TAB66 PO (20:46)
[2018-01-13] MEDS ORDERED: predniSONE 20 MG TAB PO ONE (20:50)
== END 2018-01-13 21:26 | disposition home or self-care (01) ==
LOC: ER 15:20
DX: M47.22 Other spondylosis with radiculopathy, cervical region (principal); M19.011 Primary osteoarthritis, right shoulder; L21.9 Seborrheic dermatitis, unspecified
CPT/HCPCS: 36415; 36416; 71046; 72141; 73030; 82948; 83690; 84484; 85007; 85027; 93005; 96374; 96375; 99285; J2060; J2270; J2360; J7512; 82040; 82247; 82310; 82374; 82435; 82565; 82947; 84075; 84132; 84155; 84295; 84450; 84460; 84520

== ENCOUNTER 2018-01-27 19:58 | Emergency (ER) | payer MEDICARE, OTHER ==
[2017-04-06 09:20] VITALS: Wt 97.7 kg
[~2018-01-27 19:58] MED LIST changes: +KETO120S14 TP; +METH4TAB66 PO
--- NOTE | 2018-01-27 20:01 | ER Report ---
History and Physical Time Seen By MD: 20:01 HPI/ROS CHIEF COMPLAINT: Unable to urinate HISTORY OF PRESENT ILLNESS: 77-year-old male with a history of BPH unable to void for the last 12 hours. He reports urinary dribbling. Patient's on Flomax already. Allergies: Coded Allergies: Penicillins (Verified Allergy, Mild, HIVES, 01/28/18) niacin (Verified Allergy, Mild, 01/28/18) Home Meds Active Scripts Methylprednisolone (METHYLPREDNISOLONE) 4 Mg Tab.ds.pk, 4 MG PO DIRECTED, #1 PACK 0 Refills Prov:ALYSA BAEZ MD 01/13/18 Ketoconazole (KETOCONAZOLE) 120 Ml Shampoo, 120 ML TP 2XW, #120 TUBE Prov:BENEDICT KIM DO 01/13/18 Insulin Npl/Insulin Lispro (HUMALOG MIX 75-25 KWIKPEN) 100 Unit/1 Ml Insuln.pen, 25-35 UNIT SQ TIDAC for 90 Days, #6 BOX 4 Refills 35 units before breakfast and lunch 25 units before dinner Prov:WERO GOSS MD 12/01/17 Omeprazole (OMEPRAZOLE) 40 Mg Capsule.dr, 1 CAP PO QDAY PRN for heartburn for 90 Days, #90 CAP 4 Refills Prov:WERO GOSS MD 11/09/17 One Touch Ultra Test Strips (ONE TOUCH ULTRA TEST STRIPS) 1 Each Strip, 1 STRIP ASDIRECTED QID for 90 Days, #4 BOX 4 Refills Use 1 strip to test glucose QID Length of need: 99 Months Diagnosis:Insulin Dependent Diabetes Mellitus Prov:WERO GOSS MD 09/19/17 Pravastatin Sodium (PRAVASTATIN SODIUM) 20 Mg Tablet, 1 TAB PO HS for 90 Days, #90 TAB 4 Refills Prov:WERO GOSS MD 09/07/17 Tamsulosin Hcl (FLOMAX) 0.4 Mg Cap.er.24h, 1 CAP PO QDAY for 90 Days, #90 CAPSULE 4 Refills Prov:WERO GOSS MD 09/07/17 Trazodone Hcl (TRAZODONE HCL) 50 Mg Tablet, 50 MG PO QHS for 90 Days, #90 TAB 4 Refills Prov:WERO GOSS MD 09/07/17 Citalopram Hydrobromide (CITALOPRAM HBR) 10 Mg Tablet, 10 MG PO QDAY for 90 Days, #90 TAB 4 Refills Prov:WERO GOSS MD 09/07/17 Gabapentin (GABAPENTIN) 300 Mg Capsule, 300 MG PO QHS for 90 Days, #90 CAPSULE 1 Refill Prov:WERO GOSS MD 09/07/17 Fluticasone Prop 50 Mcg Ns (FLONASE 50 MCG NS) 16 Gm [place].susp, 2 SPRAYS NS QDAY for 30 Days, #1 BOT Prov:WERO GOSS MD 03/25/17 Reported Medications Nitroglycerin (NITROGLYCERIN) 0.4 Mg Tab.subl, 1 TAB SL Q5MIN PRN for CHEST PAIN May repeat 3 times in 15 min 12/17/16 Multivitamin (MULTIVITAMINS) 1 Each Capsule, 1 EACH PO QDAY 12/17/16 Aspirin (ASPIRIN) 325 Mg Tablet, 1 TAB PO QDAY, TAB 10/20/15 Cholecalciferol (Vitamin D3) (VITAMIN D) 2,000 Unit Tablet, 1 TAB PO DAILY 09/05/15 Discontinued Scripts Hydrocodone Bit/Acetaminophen (HYDROCODON-ACETAMINOPHEN 5-325) 1 Each Tablet, 1 EACH PO Q4H PRN for PAIN, #12 TAB 0 Refills Prov:ALYSA BAEZ MD 01/13/18 Doxycycline Hyclate (DOXYCYCLINE HYCLATE) 100 Mg Capsule, 100 MG PO BID for 5 Days, #10 CAPSULE 0 Refills Prov:TOMAS NIX MD 12/14/17 Clindamycin Hcl (CLINDAMYCIN HCL) 300 Mg Capsule, 2 TAB PO Q6H, #32 CAPSULE Prov:ABDI FRASER DO 12/13/17 Past Medical/Surgical History Pmhx: htn, pneumonia, cad, sepsis, dm2, dementia, sleep apnea, pvd, sleep apnea Reviewed Nurses Notes: Yes Old Medical Records Reviewed: Yes Hx Smoking: Yes Smoking Status: Former Smoker Exposure to Second Hand Smoke?: No Hx Substance Use Disorder: No Hx Alcohol Use: No Constitutional Vital Sign - Last 24 Hours 01/27/18 01/27/18 01/27/18 01/27/18 20:04 20:06 20:13 20:43 Temp 99.0 Pulse 107 95 87 Resp 18 B/P (MAP) 129/97 129/97 (108) Pulse Ox 97 89 86 O2 Delivery Room Air 01/27/18 01/27/18 20:58 21:04 Pulse 87 B/P (MAP) 136/73 (94) Pulse Ox 94 Physical Exam General Appearance: The patient is alert, has no immediate need for airway protection and no current signs of toxicity. Mild distress HEENT: Pupils equal and round no injection. Oropharynx without redness or exudate, mucous. Membranes are moist Respiratory: Chest is non tender, lungs are clear to auscultation. Cardiac: regular rate and rhythm Gastrointestinal: Abdomen is soft, suprapubic fullness non tender, no masses, bowel sounds normal. Musculoskeletal: Neck: Neck is supple and non tender. Extremities have full range of motion and are non tender. Skin: No rashes or lesions. DIFFERENTIAL DIAGNOSIS: After history and physical exam differential diagnosis was considered for urinary retention including but not limited to medication side effect, neurologic causes, outflow obstruction including prostatic hypertr ophy, and blood. Medical Decision Making Data Points Laboratory Hematology Test 01/27/18 20:40 Urine Color Yellow Urine Clarity Clear Urine pH 5.0 pH (4.8-9.5) Urine Specific [place] 1.018 Urine Protein Negative mg/dL (NEGATIVE) Urine Glucose (UA) 50 mg/dL (NEGATIVE) Urine Ketones Negative mg/dL (NEGATIVE) Urine Blood Negative (NEGATIVE) Urine Nitrite Negative (NEGATIVE) Urine Bilirubin Negative (NEGATIVE) Urine Urobilinogen Negative mg/dL (0.2-1.9) Urine Leukocyte Esterase Negative (NEGATIVE) Urine RBC 2 /HPF (0-2/HPF) Urine WBC 1 /HPF (0-5/HPF) Urine Squamous Epithelial Cells None /LPF (NONE-FEW) Urine Bacteria Negative /HPF (NONE-FEW) Urine Mucus Few /HPF (NONE-FEW) Chemistry Test 01/27/18 20:40 Urine Color Yellow Urine Clarity Clear Urine pH 5.0 pH (4.8-9.5) Urine Specific [place] 1.018 Urine Protein Negative mg/dL (NEGATIVE) Urine Glucose (UA) 50 mg/dL (NEGATIVE) Urine Ketones Negative mg/dL (NEGATIVE) Urine Blood Negative (NEGATIVE) Urine Nitrite Negative (NEGATIVE) Urine Bilirubin Negative (NEGATIVE) Urine Urobilinogen Negative mg/dL (0.2-1.9) Urine Leukocyte Esterase Negative (NEGATIVE) Urine RBC 2 /HPF (0-2/HPF) Urine WBC 1 /HPF (0-5/HPF) Urine Squamous Epithelial Cells None /LPF (NONE-FEW) Urine Bacteria Negative /HPF (NONE-FEW) Urine Mucus Few /HPF (NONE-FEW) Urinalysis Test 01/27/18 20:40 Urine Color Yellow Urine Clarity Clear Urine pH 5.0 pH (4.8-9.5) Urine Specific [place] 1.018 Urine Protein Negative mg/dL (NEGATIVE) Urine Glucose (UA) 50 mg/dL (NEGATIVE) Urine Ketones Negative mg/dL (NEGATIVE) Urine Blood Negative (NEGATIVE) Urine Nitrite Negative (NEGATIVE) Urine Bilirubin Negative (NEGATIVE) Urine Urobilinogen Negative mg/dL (0.2-1.9) Urine Leukocyte Esterase Negative (NEGATIVE) Urine RBC 2 /HPF (0-2/HPF) Urine WBC 1 /HPF (0-5/HPF) Urine Squamous Epithelial Cells None /LPF (NONE-FEW) Urine Bacteria Negative /HPF (NONE-FEW) Urine Mucus Few /HPF (NONE-FEW) ED Course/Re-evaluation ED Course Patient was admitted to an examination room. H&P was done. The differential diagnoses was considered. Clinically patient with urinary retention. A bladder scan showed over 1 L. Ruiz catheter was inserted. 1200 mL was drained. A urinalysis was performed which is unremarkable for evidence of infection. Patient's advised to follow-up with Dr. Hooks, his urologist early next week. Decision to Disposition Date: Jan 27, 2018 Decision to Disposition Time: 20:51 Depart Departure Latest Vital Signs Vital Signs Date Time Temp Pulse Resp B/P (MAP) Pulse Ox O2 Delivery O2 Flow Rate FiO2 01/27/18 21:04 136/73 (94) 01/27/18 20:58 87 94 01/27/18 20:04 99.0 18 Room Air Impression: Primary Impression: Urinary retention Additional Impression: BPH (benign prostatic hyperplasia) Condition: Improved Disposition: HOME OR SELF-CARE Referrals: WERO GOSS MD (PCP) SHANICE HOOKS MD Patient Instructions: Urinary Retention in Men (ED) Additional Instructions: Follow-up with Dr. Hooks urology next week Problem Qualifiers Additional Impression: BPH (benign prostatic hyperplasia) Lower urinary tract symptom presence: symptoms present Lower urinary tract symptom detail: unspecified Qualified Codes: N40.1 - Benign prostatic hyperplasia with lower urinary tract symptoms GINA PULIDO DO Jan 27, 2018 20:01
[2018-01-27 21:04] VITALS: BP 136/73
== END 2018-01-27 21:12 | disposition home or self-care (01) ==
LOC: ER 20:05
DX: R33.9 Retention of urine, unspecified (principal); N40.1 Benign prostatic hyperplasia with lower urinary tract symptoms
CPT/HCPCS: 81001; 99282

== ENCOUNTER 2018-01-28 14:50 | Emergency (ER) | payer MEDICARE, OTHER ==
[2017-04-06 09:20] VITALS: Wt 97.5 kg
--- NOTE | 2018-01-28 15:54 | ER Report ---
History and Physical Time Seen By MD: 15:30 Hx. of Stated Complaint: abd pain HPI/ROS CHIEF COMPLAINT: pelvic spasms HISTORY OF PRESENT ILLNESS: Pt last night had urinary retention and needed to go to the emergency department. Pt has never had this happen before. Colon was placed and pt had 1200cc urine drain. Pt sent home with colon and told to follow up with Dr. Hooks. Pt Colon has been draining. Pt c/o of sharp spasms in his bladder area. Came in today due to the spasm. Pt has not had any fevers. Pt denies ever having a colon before. no chills. Pts urine was checked yesterday and found to have clean urine. REVIEW OF SYSTEMS: Constitutional: No fever, no chills. Eyes: No discharge. ENT: No sore throat. Cardiovascular: No chest pain, no palpitations. Respiratory: No cough, no shortness of breath. Gastrointestinal: No abdominal pain, no vomiting. Genitourinary: No hematuria, Bladder spasm Musculoskeletal: No back pain. Skin: No rashes. Neurological: No headache. Allergies: Coded Allergies: Penicillins (Verified Allergy, Mild, HIVES, 01/28/18) niacin (Verified Allergy, Mild, 01/28/18) Home Meds Active Scripts Methylprednisolone (METHYLPREDNISOLONE) 4 Mg Tab.ds.pk, 4 MG PO DIRECTED, #1 PACK 0 Refills Prov:ALYSA BAEZ MD 01/13/18 Ketoconazole (KETOCONAZOLE) 120 Ml Shampoo, 120 ML TP 2XW, #120 TUBE Prov:BENEDICT KIM DO 01/13/18 Insulin Npl/Insulin Lispro (HUMALOG MIX 75-25 KWIKPEN) 100 Unit/1 Ml Insuln.pen, 25-35 UNIT SQ TIDAC for 90 Days, #6 BOX 4 Refills 35 units before breakfast and lunch 25 units before dinner Prov:WERO GOSS MD 12/01/17 Omeprazole (OMEPRAZOLE) 40 Mg Capsule.dr, 1 CAP PO QDAY PRN for heartburn for 90 Days, #90 CAP 4 Refills Prov:WERO GOSS MD 11/09/17 One Touch Ultra Test Strips (ONE TOUCH ULTRA TEST STRIPS) 1 Each Strip, 1 STRIP ASDIRECTED QID for 90 Days, #4 BOX 4 Refills Use 1 strip to test glucose QID Length of need: 99 Months Diagnosis:Insulin Dependent Diabetes Mellitus Prov:WERO GOSS MD 09/19/17 Pravastatin Sodium (PRAVASTATIN SODIUM) 20 Mg Tablet, 1 TAB PO HS for 90 Days, #90 TAB 4 Refills Prov:WERO GOSS MD 09/07/17 Tamsulosin Hcl (FLOMAX) 0.4 Mg Cap.er.24h, 1 CAP PO QDAY for 90 Days, #90 CAPSULE 4 Refills Prov:WERO GOSS MD 09/07/17 Trazodone Hcl (TRAZODONE HCL) 50 Mg Tablet, 50 MG PO QHS for 90 Days, #90 TAB 4 Refills Prov:WERO GOSS MD 09/07/17 Citalopram Hydrobromide (CITALOPRAM HBR) 10 Mg Tablet, 10 MG PO QDAY for 90 Days, #90 TAB 4 Refills Prov:WERO GOSS MD 09/07/17 Gabapentin (GABAPENTIN) 300 Mg Capsule, 300 MG PO QHS for 90 Days, #90 CAPSULE 1 Refill Prov:WERO GOSS MD 09/07/17 Fluticasone Prop 50 Mcg Ns (FLONASE 50 MCG NS) 16 Gm [place].susp, 2 SPRAYS NS QDAY for 30 Days, #1 BOT Prov:WERO GOSS MD 03/25/17 Reported Medications Nitroglycerin (NITROGLYCERIN) 0.4 Mg Tab.subl, 1 TAB SL Q5MIN PRN for CHEST PAIN May repeat 3 times in 15 min 12/17/16 Multivitamin (MULTIVITAMINS) 1 Each Capsule, 1 EACH PO QDAY 12/17/16 Aspirin (ASPIRIN) 325 Mg Tablet, 1 TAB PO QDAY, TAB 10/20/15 Cholecalciferol (Vitamin D3) (VITAMIN D) 2,000 Unit Tablet, 1 TAB PO DAILY 09/05/15 Discontinued Scripts Hydrocodone Bit/Acetaminophen (HYDROCODON-ACETAMINOPHEN 5-325) 1 Each Tablet, 1 EACH PO Q4H PRN for PAIN, #12 TAB 0 Refills Prov:ALYSA BAEZ MD 01/13/18 Doxycycline Hyclate (DOXYCYCLINE HYCLATE) 100 Mg Capsule, 100 MG PO BID for 5 Days, #10 CAPSULE 0 Refills Prov:TOMAS NIX MD 12/14/17 Clindamycin Hcl (CLINDAMYCIN HCL) 300 Mg Capsule, 2 TAB PO Q6H, #32 CAPSULE Prov:ABDI FRASER DO 12/13/17 Past Medical/Surgical History Pmhx: htn, pneumonia, cad, sepsis, dm2, dementia, sleep apnea, pvd, sleep apnea Reviewed Nurses Notes: Yes Old Medical Records Reviewed: Yes Hx Smoking: Yes Smoking Status: Former Smoker Exposure to Second Hand Smoke?: No Hx Substance Use Disorder: No Hx Alcohol Use: No Constitutional Vital Sign - Last 24 Hours 01/28/18 15:14 Temp 98.1 Pulse 70 Resp 14 B/P (MAP) 161/75 Pulse Ox 96 O2 Delivery Room Air Physical Exam General Appearance: The patient is alert, has no immediate need for airway protection and no signs of toxicity. Eyes: Pupils equal and round no pallor or injection, EOMI ENT: no pharyngeal erythema or exudates, Mucous membranes are moist Respiratory: There are no retractions, lungs are clear to auscultation. Cardiovascular: Regular rate and rhythm. pulses are equal and symmetrical Gastrointestinal: Abdomen is soft and non tender, no masses, bowel sounds normal, no guarding, no rigidity or rebound : colon placed with urine draining, no gross hematuria, no testicular pain Neurological: Cranial nerves II-XII grossly intact, no sensory or motor loss Skin: Warm and dry, no rashes. Musculoskeletal: Neck is supple non tender, no vertebral tenderness Extremities are nontender, nonswollen and have full range of motion. DIFFERENTIAL DIAGNOSIS: After history and physical exam differential diagnosis was considered for BPH, bladder spasms, uti Medical Decision Making ED Course/Re-evaluation ED Course Urine sent for culture. Pt not sent home with a bed bag for the colon only a leg bag. Pt given a large bag. Decision to Disposition Date: Jan 28, 2018 Decision to Disposition Time: 15:53 Depart Departure Latest Vital Signs Vital Signs Date Time Temp Pulse Resp B/P (MAP) Pulse Ox O2 Delivery O2 Flow Rate FiO2 01/28/18 15:14 98.1 70 14 161/75 96 Room Air Impression: Primary Impression: Bladder spasms Condition: Improved Disposition: HOME OR SELF-CARE Referrals: WERO GOSS MD (PCP) SHANICE HOOKS MD 2 Days Patient Instructions: Colon Catheter Placement and Care (ED), Urinary Retention in Men (ED) Additional Instructions: Call Dr. Hooks office tomorrow to arrange an appointment for your colon to be removed. Let them know you were seen for urinary retention. Return as needed. BENEDICT KIM DO Jan 28, 2018 15:54
[2018-01-28] MEDS ORDERED: PHENAZOPYRIDINE 200 MG TAB PO ONE (15:55)
[2018-01-28 16:00] VITALS: BP 140/83
== END 2018-01-28 16:30 | disposition home or self-care (01) ==
LOC: ER 15:40
DX: N32.89 Other specified disorders of bladder (principal)
CPT/HCPCS: 87088; 99283; A9270

== ENCOUNTER → 2018-02-09 | Outpatient (CLI) | payer MEDICARE, OTHER ==
[2017-04-06 09:20] VITALS: BMI 26.2
[~2018-02-09] MED LIST changes: +FINA5TAB67 PO; +[UNRECOGNIZED DRUG - OTHER] PO
--- NOTE | 2018-02-09 17:04 | RADIOLOGY IMAGING REPORT ---
FACILITY: [facility] PATIENT NAME: Pato Gutierrez : 1940 MR: [id number] V: [id number] EXAM DATE: ORDERING PHYSICIAN: WERO GOSS TECHNOLOGIST: Location: [facility] Patient: Pato Gutierrez : 1940 Visit/Account:[id number] Date of Sevice: 02/09/2018 KIDNEYS HISTORY: Hypoattenuation seen on a previous CT scan. ADDITIONAL HISTORY: None. COMPARISON: There are no pertinent prior studies and the reported CT scan was not performed at this institution. FINDINGS: Kidneys: Right kidney- 10.6 cm, normal parenchymal thickness and echogenicity. Mildly lobulated renal contour but no sonographic evidence of a focal lesion. Left kidney- 9.8 cm, normal parenchymal thickness and echogenicity. Uniform and symmetric blood flow in each kidney by Doppler ultrasound. Hydronephrosis: None. Bladder: Bladder wall appears mildly thickened. Prostate is visualized and prominent and impresses i nto the bladder base. Particularly notable on the post void images is irregularity along the base of the bladder. It is uncertain whether this represents a bladder mass or prostatic invagination into the bladder wall.. Bilateral ureteral jets: Documented Prevoid volume 335 mL and post void volume 125 mL. Substantial postvoid residual. Abdominal aorta and IVC: Patent by Doppler ultrasound. IMPRESSION: A renal lesion is not identified. Given history I would suggest multiphasic follow-up renal CT or MR I which is more sensitive than ultrasound for the detection of renal lesions. Urinary bladder wall thickening. There is also substantial postvoid residual. Differential includes cystitis or bladder outlet obstruction possibly related to prostatic hypertrophy. Cannot exclude mural lesion at the bladder base. Alternatively this might simply represent prostatic impression. This area could also be evaluated on follow-up contrasted CT scan or cystoscopy Report Dictated By: Erick Frost MD at 02/09/2018 4:50 PM Report E-Signed By: Erick Frost MD at 02/09/2018 4:59 PM WSN:[email or web address]
== END ==
LOC: US 01:29
PROVIDERS: ATTEND Family Medicine
DX: N28.89 Other specified disorders of kidney and ureter (principal)
CPT/HCPCS: 76705

== ENCOUNTER 2018-03-02 20:59 | Emergency (ER) | payer MEDICARE, OTHER ==
[2017-04-06 09:20] VITALS: Wt 92.5 kg
[~2018-03-02 20:59] MED LIST changes: -AMLO2.5T76 PO; +AMLO2.5T78 PO
--- NOTE | 2018-03-02 21:07 | ER Report ---
History and Physical Time Seen By MD: 21:08 HPI/ROS CHIEF COMPLAINT: Hyperglycemia HISTORY OF PRESENT ILLNESS: 77-year-old male type II diabetic, insulin required brought in by his with concerns over his glucose registering 600 on his home meter. Patient voices no complaints, chest pain, shortness of breath or any other symptoms. He was seen by his primary care provider earlier today. Nurse's perform finger stick glucose with our glucometer here comes at 173. REVIEW OF SYSTEMS: Respiratory: No cough, no dyspnea. Cardiovascular: No chest pain, no palpitations. Gastrointestinal: No vomiting, no abdominal pain. Musculoskeletal: No back pain. Allergies: Coded Allergies: Penicillins (Verified Allergy, Mild, HIVES, 03/02/18) niacin (Verified Allergy, Mild, 03/02/18) Home Meds Active Scripts Insulin Npl/Insulin Lispro (HUMALOG MIX 75-25 KWIKPEN) 100 Unit/1 Ml Insuln.pen, 27 UNIT SQ TIDAC for 90 Days, #6 BOX 4 Refills HH RN reports patient is takine 27 units tid Prov:WERO GOSS MD 02/09/18 Ketoconazole (KETOCONAZOLE) 120 Ml Shampoo, 120 ML TP 2XW, #120 TUBE Prov:BENEDICT KIM DO 01/13/18 Omeprazole (OMEPRAZOLE) 40 Mg Capsule.dr, 1 CAP PO QDAY PRN for heartburn for 90 Days, #90 CAP 4 Refills Prov:WERO GOSS MD 11/09/17 One Touch Ultra Test Strips (ONE TOUCH ULTRA TEST STRIPS) 1 Each Strip, 1 STRIP ASDIRECTED QID for 90 Days, #4 BOX 4 Refills Use 1 strip to test glucose QID Length of need: 99 Months Diagnosis:Insulin Dependent Diabetes Mellitus Prov:WERO GOSS MD 09/19/17 Pravastatin Sodium (PRAVASTATIN SODIUM) 20 Mg Tablet, 1 TAB PO HS for 90 Days, #90 TAB 4 Refills Prov:WERO GOSS MD 09/07/17 Tamsulosin Hcl (FLOMAX) 0.4 Mg Cap.er.24h, 1 CAP PO QDAY for 90 Days, #90 CAPSULE 4 Refills Prov:WERO GOSS MD 09/07/17 Trazodone Hcl (TRAZODONE HCL) 50 Mg Tablet, 50 MG PO QHS for 90 Days, #90 TAB 4 Refills Prov:WERO GOSS MD 09/07/17 Citalopram Hydrobromide (CITALOPRAM HBR) 10 Mg Tablet, 10 MG PO QDAY for 90 Days, #90 TAB 4 Refills Prov:WERO GOSS MD 09/07/17 Gabapentin (GABAPENTIN) 300 Mg Capsule, 300 MG PO QHS for 90 Days, #90 CAPSULE 1 Refill Prov:WERO GOSS MD 09/07/17 Reported Medications Finasteride (FINASTERIDE) 5 Mg Tablet, 1 TAB PO QDAY 02/09/18 [Centrum Electrolyte] No Conflict Check, 1 TAB PO DAILY 02/09/18 Nitroglycerin (NITROGLYCERIN) 0.4 Mg Tab.subl, 1 TAB SL Q5MIN PRN for CHEST PAIN May repeat 3 times in 15 min 12/17/16 Multivitamin (MULTIVITAMINS) 1 Each Capsule, 1 EACH PO QDAY 12/17/16 Aspirin (ASPIRIN) 325 Mg Tablet, 1 TAB PO QDAY, TAB 10/20/15 Past Medical/Surgical History Pmhx: htn, pneumonia, cad, sepsis, dm2, dementia, sleep apnea, pvd, sleep apnea Reviewed Nurses Notes: Yes Old Medical Records Reviewed: Yes Hx Smoking: Yes Smoking Status: Former Smoker Exposure to Second Hand Smoke?: No Hx Substance Use Disorder: No Hx Alcohol Use: No Constitutional Vital Sign - Last 24 Hours 03/02/18 03/02/18 03/02/18 03/02/18 21:05 21:14 21:29 21:30 Temp 98.6 Pulse 71 66 61 Resp 16 B/P (MAP) 142/89 131/81 (98) Pulse Ox 91 94 88 O2 Delivery Room Air Physical Exam General Appearance: The patient is alert, has no immediate need for airway protection and no current signs of toxicity. Vital signs stable, afebrile, pulse ox normal Eyes: Pupils equal and round no injection. Respiratory: Chest is non tender, lungs are clear to auscultation. Cardiac: regular rate and rhythm Gastrointestinal: Abdomen is soft and non tender, no masses, bowel sounds normal. Musculoskeletal: Neck: Neck is supple and non tender. Extremities have full range of motion and are non tender. Skin: No rashes or lesions. DIFFERENTIAL DIAGNOSIS: After history and physical exam differential diagnosis was considered for hyperglycemia, dementia, glucometer error. Medical Decision Making ED Course/Re-evaluation ED Course Patient was minute to an examination room. H&P was done. The differential diagnoses was considered. On clinical examination. Patient has no symptoms. His glucometer at home was misreading his glucose at greater than 600. On arrival here. His glucometer reading on our machine is 173. Patient voices no complaints. His is advised to follow-up with primary care tomorrow to get a new glucometer. Patient has a history of dementia. He is very pleasant Decision to Disposition Date: Mar 02, 2018 Decision to Disposition Time: 21:15 Depart Departure Latest Vital Signs Vital Signs Date Time Temp Pulse Resp B/P (MAP) Pulse Ox O2 Delivery O2 Flow Rate FiO2 03/02/18 21:30 131/81 (98) 03/02/18 21:29 61 88 03/02/18 21:05 98.6 16 Room Air Impression: Primary Impression: Hyperglycemia due to type 2 diabetes mellitus Condition: Improved Disposition: HOME OR SELF-CARE Referrals: WERO GOSS MD (PCP) Patient Instructions: Diabetic Hyperglycemia (ED) Additional Instructions: Follow-up with primary care for evaluation of your glucose monitor. You may need to get a new one and new strips Problem Qualifiers Primary Impression: Hyperglycemia due to type 2 diabetes mellitus Diabetes mellitus long term care pharmacist insulin use: with longterm use Qualified Codes: E11.65 - Type 2 diabetes mellitus with hyperglycemia; Z79.4 - intermediate (current) use of insulin GINA PULIDO DO Mar 02, 2018 21:07
[2018-03-02 21:30] VITALS: BP 131/81
== END 2018-03-02 21:38 | disposition home or self-care (01) ==
LOC: ER 21:08
DX: E11.65 Type 2 diabetes mellitus with hyperglycemia (principal); Z79.4 Long term (current) use of insulin
CPT/HCPCS: 99282

== ENCOUNTER 2018-03-04 20:53 | Emergency (ER) | payer MEDICARE, OTHER ==
[2017-04-06 09:20] VITALS: Wt 92.5 kg
--- NOTE | 2018-03-04 21:05 | ER Report ---
History and Physical Time Seen By MD: 21:05 Hx. of Stated Complaint: pt has something in his eye. states it is a stone HPI/ROS CHIEF COMPLAINT: r eye pain HISTORY OF PRESENT ILLNESS: Pt states about two hours ago while watching tv his right eye started to bother him. states he keeps rubbing that eye. Pts eyelids are red and swollen but the eye is not red. Pt states it was tearing but not know. PT feels that there is something in the eye. no trauma. No visual changes. REVIEW OF SYSTEMS: Constitutional: No fever, no chills. Eyes: R eye pain, Swollen eye lids ENT: No sore throat. Cardiovascular: No chest pain, no palpitations. Respiratory: No cough, no shortness of breath. Gastrointestinal: No abdominal pain, no vomiting. Genitourinary: No hematuria. Musculoskeletal: No back pain. Skin: No rashes. Neurological: No headache. Allergies: Coded Allergies: Penicillins (Verified Allergy, Mild, HIVES, 03/02/18) niacin (Verified Allergy, Mild, 03/02/18) Home Meds Active Scripts Insulin Npl/Insulin Lispro (HUMALOG MIX 75-25 KWIKPEN) 100 Unit/1 Ml Insuln.pen, 27 UNIT SQ TIDAC for 90 Days, #6 BOX 4 Refills HH RN reports patient is takine 27 units tid Prov:WERO GOSS MD 02/09/18 Ketoconazole (KETOCONAZOLE) 120 Ml Shampoo, 120 ML TP 2XW, #120 TUBE Prov:BENEDICT KIM DO 01/13/18 Omeprazole (OMEPRAZOLE) 40 Mg Capsule.dr, 1 CAP PO QDAY PRN for heartburn for 90 Days, #90 CAP 4 Refills Prov:WERO GOSS MD 11/09/17 One Touch Ultra Test Strips (ONE TOUCH ULTRA TEST STRIPS) 1 Each Strip, 1 STRIP ASDIRECTED QID for 90 Days, #4 BOX 4 Refills Use 1 strip to test glucose QID Length of need: 99 Months Diagnosis:Insulin Dependent Diabetes Mellitus Prov:WERO GOSS MD 09/19/17 Pravastatin Sodium (PRAVASTATIN SODIUM) 20 Mg Tablet, 1 TAB PO HS for 90 Days, #90 TAB 4 Refills Prov:WERO GOSS MD 09/07/17 Tamsulosin Hcl (FLOMAX) 0.4 Mg Cap.er.24h, 1 CAP PO QDAY for 90 Days, #90 CAPSULE 4 Refills Prov:WERO GOSS MD 09/07/17 Trazodone Hcl (TRAZODONE HCL) 50 Mg Tablet, 50 MG PO QHS for 90 Days, #90 TAB 4 Refills Prov:WERO GOSS MD 09/07/17 Citalopram Hydrobromide (CITALOPRAM HBR) 10 Mg Tablet, 10 MG PO QDAY for 90 Days, #90 TAB 4 Refills Prov:WERO GOSS MD 09/07/17 Gabapentin (GABAPENTIN) 300 Mg Capsule, 300 MG PO QHS for 90 Days, #90 CAPSULE 1 Refill Prov:WERO GOSS MD 09/07/17 Reported Medications Finasteride (FINASTERIDE) 5 Mg Tablet, 1 TAB PO QDAY 02/09/18 [Centrum Electrolyte] No Conflict Check, 1 TAB PO DAILY 02/09/18 Nitroglycerin (NITROGLYCERIN) 0.4 Mg Tab.subl, 1 TAB SL Q5MIN PRN for CHEST PAIN May repeat 3 times in 15 min 12/17/16 Multivitamin (MULTIVITAMINS) 1 Each Capsule, 1 EACH PO QDAY 12/17/16 Aspirin (ASPIRIN) 325 Mg Tablet, 1 TAB PO QDAY, TAB 10/20/15 Past Medical/Surgical History Pmhx: htn, pneumonia, cad, sepsis, dm2, dementia, sleep apnea, pvd, sleep apnea Reviewed Nurses Notes: Yes Old Medical Records Reviewed: Yes Hx Smoking: Yes Smoking Status: Former Smoker Exposure to Second Hand Smoke?: No Hx Substance Use Disorder: No Hx Alcohol Use: No Constitutional Vital Sign - Last 24 Hours 03/04/18 20:59 Temp 97.9 Pulse 84 Resp 18 B/P (MAP) 173/83 Pulse Ox 93 O2 Delivery Room Air Physical Exam General Appearance: [Alert, no distress.] Eyes: Pupils equal and round no pallor. Pupils are equal. Right eye has no injection. There is no discharge at this time. There is no foreign body. Fluorescein exam reveals no uptake. Slit lamp exam: no fb or abrasion identified Skin:Right Lower eye lid is red and swollen, upper eye lid minimal redness. No fb identified under eyelids when inverted DIFFERENTIAL DIAGNOSIS: After history and physical exam differential diagnosis was considered for a red eye including but not limited to foreign body, conjunctivitis, iritis and corneal abrasion, glaucoma Medical Decision Making ED Course/Re-evaluation ED Course PTs pain resolved with proparicane application. No fb was identified with slit lamp. Pt had pain with inversion of eyelids and required nurse to keep his head still so that it could be preformed. No fb was identified under the eye lids Celio pen was used for pressures of right eye. Three separate readings 15, 15, 16 Will start on abx drops for possible infection of the eye lid. PT encouraged to follow up with opthomologist on Tuesday but return to ed if symptoms worsen prior to Tuesday. 03/04/2018 9:42:36 pm Pt did slip getting out of car in parking lot and landed on L knee. Did not hit head. Pt does have 2cm abrasion to right knee which was cleansed and bandaged. Pt had no laxity or effusion. NO pain at joint line or with range of motion. Decision to Disposition Date: Mar 04, 2018 Decision to Disposition Time: 21:43 Depart Departure Latest Vital Signs Vital Signs Date Time Temp Pulse Resp B/P (MAP) Pulse Ox O2 Delivery O2 Flow Rate FiO2 03/04/18 20:59 97.9 84 18 173/83 93 Room Air Impression: Primary Impression: Blepharitis of eyelid of right eye Additional Impression: Knee abrasion Condition: Condition Unchanged Disposition: HOME OR SELF-CARE Referrals: WERO GOSS MD (PCP) LO CHAUDHARI OD packaging specialist. Follow up on Tuesday if symptoms not improving. Patient Instructions: Blepharitis (ED), Eye Pain (ED) Additional Instructions: I was unable to see any foreign body at this time in your eye. Your eyelids are swollen which could be due to early infection or from your rubbing. We are giving you tobramycin eye drops. Apply two drops every 4 hours in your right eye while awake for the next 5 days. If you are still having discomfort on Tuesday then follow up with opthomology. I provided you with the number of Dr Chaudhari if you do not have your own eye doctor. We applied antibiotic ointment to your knee abrasion. Keep your knee clean. Problem Qualifiers Primary Impression: Blepharitis of eyelid of right eye Blepharitis type: unspecified type Eyelid: lower Qualified Codes: H01.002 - Unspecified blepharitis right lower eyelid Additional Impression: Knee abrasion Encounter type: initial encounter Laterality: left Qualified Codes: S80.212A - Abrasion, left knee, initial encounter BENEDICT KIM DO Mar 04, 2018 21:05
[2018-03-04] MEDS ORDERED: PROPARACAI/FLUORESCEIN 5 ML OP DROPS OU ONE (21:10)
[2018-03-04] MEDS ORDERED: TOBRAMYCIN 0.3% OP SOLN 5 ML OD ONE (21:25)
[2018-03-04 21:45] VITALS: BP 149/79
== END 2018-03-04 21:55 | disposition home or self-care (01) ==
LOC: ER 21:05
DX: H01.002 Unspecified blepharitis right lower eyelid (principal); S80.212A Abrasion, left knee, initial encounter; W18.30XA Fall on same level, unspecified, initial encounter
CPT/HCPCS: 99282; A9270

== ENCOUNTER 2018-05-05 16:18 | Emergency (ER) | payer MEDICARE, OTHER ==
[2017-04-06 09:20] VITALS: BMI 26.2
[~2018-05-05 16:18] MED LIST changes: +ACET500T68 PO
--- NOTE | 2018-05-05 16:24 | ER Report ---
History and Physical Time Seen By MD: 16:24 HPI/ROS CHIEF COMPLAINT: Back pain, burning with urination HISTORY OF PRESENT ILLNESS: Patient is a 77-year-old male here with complaints of upper lumbar midline back pain, burning with urination. Patient denies recent falls, trauma to the spine. Patient is able to ambulate without issues. Denies fevers, chills, chest pain, shortness breath. REVIEW OF SYSTEMS: Constitutional: No fever, no chills. Eyes: No discharge. ENT: No sore throat. Cardiovascular: No chest pain, no palpitations. Respiratory: No cough, no shortness of breath. Gastrointestinal: No abdominal pain, no vomiting. Genitourinary: No hematuria. + Burning with urination Musculoskeletal: + Midline upper lumbar back pain Skin: No rashes. Neurological: No headache. Allergies: Coded Allergies: Penicillins (Verified Allergy, Mild, HIVES, 03/02/18) niacin (Verified Allergy, Mild, 03/02/18) Home Meds Active Scripts Tramadol Hcl (TRAMADOL HCL) 50 Mg Tablet, 50 MG PO Q6H PRN for PAIN, #10 TAB 0 Refills Prov:KANDACE EUBANKS DO 05/05/18 Insulin Npl/Insulin Lispro (HUMALOG MIX 75-25 KWIKPEN) 100 Unit/1 Ml Insuln.pen, 27 UNIT SQ TIDAC for 90 Days, #6 BOX 4 Refills HH RN reports patient is takine 27 units tid Prov:WERO GOSS MD 02/09/18 Ketoconazole (KETOCONAZOLE) 120 Ml Shampoo, 120 ML TP 2XW, #120 TUBE Prov:BENEDICT KIM V DO 01/13/18 Omeprazole (OMEPRAZOLE) 40 Mg Capsule.dr, 1 CAP PO QDAY PRN for heartburn for 90 Days, #90 CAP 4 Refills Prov:WERO GOSS MD 11/09/17 One Touch Ultra Test Strips (ONE TOUCH ULTRA TEST STRIPS) 1 Each Strip, 1 STRIP ASDIRECTED QID for 90 Days, #4 BOX 4 Refills Use 1 strip to test glucose QID Length of need: 99 Months Diagnosis:Insulin Dependent Diabetes Mellitus Prov:WERO GOSS MD 09/19/17 Pravastatin Sodium (PRAVASTATIN SODIUM) 20 Mg Tablet, 1 TAB PO HS for 90 Days, #90 TAB 4 Refills Prov:WERO GOSS MD 09/07/17 Tamsulosin Hcl (FLOMAX) 0.4 Mg Cap.er.24h, 1 CAP PO QDAY for 90 Days, #90 CAPSULE 4 Refills Prov:WERO GOSS MD 09/07/17 Trazodone Hcl (TRAZODONE HCL) 50 Mg Tablet, 50 MG PO QHS for 90 Days, #90 TAB 4 Refills Prov:WERO GOSS MD 09/07/17 Citalopram Hydrobromide (CITALOPRAM HBR) 10 Mg Tablet, 10 MG PO QDAY for 90 Days , #90 TAB 4 Refills Prov:WERO GOSS MD 09/07/17 Reported Medications Acetaminophen (TYLENOL EXTRA STRENGTH) 500 Mg Tablet, 2 TAB PO BID, CAP 04/10/18 Finasteride (FINASTERIDE) 5 Mg Tablet, 1 TAB PO QDAY 02/09/18 [Centrum Electrolyte] No Conflict Check, 1 TAB PO DAILY 02/09/18 Nitroglycerin (NITROGLYCERIN) 0.4 Mg Tab.subl, 1 TAB SL Q5MIN PRN for CHEST PAIN May repeat 3 times in 15 min 12/17/16 Multivitamin (MULTIVITAMINS) 1 Each Capsule, 1 EACH PO QDAY 12/17/16 Aspirin (ASPIRIN) 325 Mg Tablet, 1 TAB PO QDAY, TAB 10/20/15 Hx Smoking: Yes Smoking Status: Former Smoker Exposure to Second Hand Smoke?: No Hx Substance Use Disorder: No Hx Alcohol Use: No Constitutional Vital Sign - Last 24 Hours 05/05/18 05/05/18 05/05/18 05/05/18 16:32 16:33 17:30 18:00 Temp 98.1 Pulse 65 61 Resp 16 B/P (MAP) 178/81 (113) 178/81 136/66 (89) 153/81 (105) Pulse Ox 96 97 O2 Delivery Room Air Intake and Output 05/05/18 05/05/18 05/06/18 15:00 23:00 07:00 Intake Total 1000 ml Balance 1000 ml Physical Exam General Appearance: The patient is alert, has no immediate need for airway protection and no signs of toxicity. Moderate distress secondary to pain Eyes: Pupils equal and round no pallor or injection. ENT, Mouth: Mucous membranes are moist. Respiratory: There are no retractions, lungs are clear to auscultation. Cardiovascular: Regular rate and rhythm. Gastrointestinal: Abdomen is soft and non tender, no masses, bowel sounds normal. Neurological: No focal neurological deficits Skin: Warm and dry, no rashes. Musculoskeletal: Neck is supple non tender. + Tenderness on palpation at approximately L1-L2 midline Extremities are nontender, nonswollen and have full range of motion. DIFFERENTIAL DIAGNOSIS: After history and physical exam differential diagnosis was considered for abdominal pain including but not limited to appendicitis, cholecystitis, gastritis and urinary tract infection,back pain including but not limited to muscular pain, herniated disc, spine fracture, intra-abdominal causes and urinary tract infection. Medical Decision Making Data Points Result Diagram: 05/05/18 1656 05/05/18 1656 Laboratory Hematology Test 05/05/18 16:40 05/05/18 16:56 Urine Color Yellow Urine Clarity Clear Urine pH 5.0 pH (4.8-9.5) Urine Specific [place] 1.014 Urine Protein Negative mg/dL (NEGATIVE) Urine Glucose (UA) Negative mg/dL (NEGATIVE) Urine Ketones Negative mg/dL (NEGATIVE) Urine Blood Negative (NEGATIVE) Urine Nitrite Negative (NEGATIVE) Urine Bilirubin Negative (NEGATIVE) Urine Urobilinogen Negative mg/dL (0.2-1.9) Urine Leukocyte Esterase Negative (NEGATIVE) Urine RBC 1 /HPF (0-2/HPF) Urine WBC <1 /HPF (0-5/HPF) Urine Squamous Epithelial Cells Many /LPF (</=FEW) Urine Bacteria Negative /HPF (NONE-FEW) Urine Mucus None /HPF (NONE-FEW) Red Blood Count 4.38 M/uL (4.00-5.60) Mean Corpuscular Volume 93.7 fL (80.0-96.0) Mean Corpuscular Hemoglobin 32.1 pg (26.0-33.0) Mean Corpuscular Hemoglobin Concent 34.2 g/dL (32.0-36.0) Red Cell Distribution Width 14.5 % (11.5-14.5) Mean Platelet Volume 7.9 fL (7.2-11.1) Neutrophils (%) (Auto) 58.6 % (39.4-72.5) Lymphocytes (%) (Auto) 30.5 % (17.6-49.6) Monocytes (%) (Auto) 8.7 % (4.1-12.4) Eosinophils (%) (Auto) 1.5 % (0.4-6.7) Basophils (%) (Auto) 0.7 % (0.3-1.4) Nucleated RBC Relative Count (auto) 0.1 /100WBC Neutrophils # (Auto) 2.5 K/uL (2.0-7.4) Lymphocytes # (Auto) 1.3 K/uL (1.3-3.6) Monocytes # (Auto) 0.4 K/uL (0.3-1.0) Eosinophils # (Auto) 0.1 K/uL (0.0-0.5) Basophils # (Auto) 0.0 K/uL (0.0-0.1) Nucleated RBC Absolute Count (auto) 0.00 K/uL Sodium Level 140 mmol/L (137-145) Potassium Level 4.0 mmol/L (3.5-5.0) Chloride Level 102 mmol/L (98-107) Carbon Dioxide Level 26 mmol/L (22-30) Blood Urea Nitrogen 17 mg/dl (9-21) Creatinine 0.90 mg/dl (0.66-1.25) Glomerular Filtration Rate Calc > 60.0 Random Glucose 169 mg/dl (75-110) Lactate 1.0 mmol/L (0.7-2.1) Calcium Level 9.4 mg/dl (8.4-10.2) Total Bilirubin 0.4 mg/dl (0.2-1.3) Aspartate Amino Transf (AST/SGOT) 25 U/L (0-35) Alanine Aminotransferase (ALT/SGPT) 30 U/L (0-56) Alkaline Phosphatase 82 U/L (0-126) Total Protein 6.7 g/dl (6.3-8.2) Albumin 4.4 g/dl (3.5-5.0) Lipase 80 U/L (23-300) Chemistry Test 05/05/18 16:40 05/05/18 16:56 Urine Color Yellow Urine Clarity Clear Urine pH 5.0 pH (4.8-9.5) Urine Specific [place] 1.014 Urine Protein Negative mg/dL (NEGATIVE) Urine Glucose (UA) Negative mg/dL (NEGATIVE) Urine Ketones Negative mg/dL (NEGATIVE) Urine Blood Negative (NEGATIVE) Urine Nitrite Negative (NEGATIVE) Urine Bilirubin Negative (NEGATIVE) Urine Urobilinogen Negative mg/dL (0.2-1.9) Urine Leukocyte Esterase Negative (NEGATIVE) Urine RBC 1 /HPF (0-2/HPF) Urine WBC <1 /HPF (0-5/HPF) Urine Squamous Epithelial Cells Many /LPF (</=FEW) Urine Bacteria Negative /HPF (NONE-FEW) Urine Mucus None /HPF (NONE-FEW) White Blood Count 4.2 k/uL (4.5-11.0) Red Blood Count 4.38 M/uL (4.00-5.60) Hemoglobin 14.1 g/dL (14.0-18.0) Hematocrit 41.1 % (42.0-52.0) Mean Corpuscular Volume 93.7 fL (80.0-96.0) Mean Corpuscular Hemoglobin 32.1 pg (26.0-33.0) Mean Corpuscular Hemoglobin Concent 34.2 g/dL (32.0-36.0) Red Cell Distribution Width 14.5 % (11.5-14.5) Platelet Count 115 K/uL (150-450) Mean Platelet Volume 7.9 fL (7.2-11.1) Neutrophils (%) (Auto) 58.6 % (39.4-72.5) Lymphocytes (%) (Auto) 30.5 % (17.6-49.6) Monocytes (%) (Auto) 8.7 % (4.1-12.4) Eosinophils (%) (Auto) 1.5 % (0.4-6.7) Basophils (%) (Auto) 0.7 % (0.3-1.4) Nucleated RBC Relative Count (auto) 0.1 /100WBC Neutrophils # (Auto) 2.5 K/uL (2.0-7.4) Lymphocytes # (Auto) 1.3 K/uL (1.3-3.6) Monocytes # (Auto) 0.4 K/uL (0.3-1.0) Eosinophils # (Auto) 0.1 K/uL (0.0-0.5) Basophils # (Auto) 0.0 K/uL (0.0-0.1) Nucleated RBC Absolute Count (auto) 0.00 K/uL Glomerular Filtration Rate Calc > 60.0 Lactate 1.0 mmol/L (0.7-2.1) Calcium Level 9.4 mg/dl (8.4-10.2) Total Bilirubin 0.4 mg/dl (0.2-1.3) Aspartate Amino Transf (AST/SGOT) 25 U/L (0-35) Alanine Aminotransferase (ALT/SGPT) 30 U/L (0-56) Alkaline Phosphatase 82 U/L (0-126) Total Protein 6.7 g/dl (6.3-8.2) Albumin 4.4 g/dl (3.5-5.0) Lipase 80 U/L (23-300) Urinalysis Test 05/05/18 16:40 Urine Color Yellow Urine Clarity Clear Urine pH 5.0 pH (4.8-9.5) Urine Specific [place] 1.014 Urine Protein Negative mg/dL (NEGATIVE) Urine Glucose (UA) Negative mg/dL (NEGATIVE) Urine Ketones Negative mg/dL (NEGATIVE) Urine Blood Negative (NEGATIVE) Urine Nitrite Negative (NEGATIVE) Urine Bilirubin Negative (NEGATIVE) Urine Urobilinogen Negative mg/dL (0.2-1.9) Urine Leukocyte Esterase Negative (NEGATIVE) Urine RBC 1 /HPF (0-2/HPF) Urine WBC <1 /HPF (0-5/HPF) Urine Squamous Epithelial Cells Many /LPF (</=FEW) Urine Bacteria Negative /HPF (NONE-FEW) Urine Mucus None /HPF (NONE-FEW) EKG/Imaging Imaging PATIENT NAME: Pato Gutierrez : 1940 MR: [id number] V: [id number] EXAM DATE: ORDERING PHYSICIAN: KANDACE EUBANKS TECHNOLOGIST: Location: [facility] - [place] Patient: Pato Gutierrez : 1940 Visit/Account:[id number] Date of Sevice: 05/05/2018 COMPUTED TOMOGRAPHY OF THE Abdomen and Pelvis without CONTRAST INDICATION: Flank pain with burning sensation while urinating. TECHNIQUE: Contiguous axial 3.[address] images were obtained through the abdomen and pelvis without contrast. Coronal and sagittal reformatted images were submitted. COMPARISON: CT December 07, 2017. FINDINGS: Lung bases: Extensive atherosclerosis in the coronary arteries. 3 mm nodule at the right lung base requires no specific follow-up. Liver and hepatic vasculature: Limited parenchymal evaluation without contrast but no apparent abnormality. Gallbladder and bile ducts: Surgically absent gallbladder Spleen: Normal. Extensive splenic artery atherosclerosis. Pancreas: Mild pancreatic atrophy. Adrenals: Normal Kidneys, ureters and bladder: Symmetric enhancement. No hydronephrosis. The bladder is partially obscured by streak artifact. The wall appears thickened anteriorly. Retroperitoneum and aorta: Extensive aortic atherosclerosis. No sterling aneurysm. GI tract, mesentery and peritoneum: No bowel obstruction. No free fluid or free air. No findings of diverticulitis. The sigmoid colon and rectal regions are poorly evaluated due to streak artifact from hip prostheses. Prostate: Obscured Bones and soft tissues: No acute osseous abnormality. Severe disc and endplate degenerative findings at L2-3, L4-5, and L5-S1. There is a mesh anteriorly at midline presumably from prior hernia repair. IMPRESSION: 1. No urinary tract calculus or collecting system obstruction. 2. Suggestion of bladder wall thickening anteriorly. Correlate with cystoscopy. 3. Chronic findings as above. One of the following dose optimization techniques was utilized in the performance of this exam: Automated exposure control; adjustment of the mA and/or kV according to the patient's size; or use of an iterative reconstruction technique. Specific details can be referenced in the facility's radiology CT exam operational policy. Report Dictated By: Tara Patterson MD at 05/05/2018 6:38 PM ED Course/Re-evaluation ED Course Patient is a 77-year-old male here with complaints of midline lumbar back pain which seemingly has been worsening over the past 24 hours. Patient denies recent trauma, falls. Denies bowel or bladder incontinence, urinary retention. Patient did report having some burning with urination but denies hematuria, melena. P atient is hemodynamically stable at time of evaluation, afebrile. Patient's labs were unremarkable with no leukocytosis, urinalysis. CT abdomen and pelvis showed no acute intra-abdominal pathology. Recommended close PCP follow-up. Return precautions provided. Decision to Disposition Date: May 05, 2018 Decision to Disposition Time: 18:59 Depart Departure Latest Vital Signs Vital Signs Date Time Temp Pulse Resp B/P (MAP) Pulse Ox O2 Delivery O2 Flow Rate FiO2 05/05/18 18:00 153/81 (105) 05/05/18 17:30 61 97 05/05/18 16:33 98.1 16 Room Air Impression: Primary Impression: Back pain Condition: Improved Disposition: HOME OR SELF-CARE Referrals: WERO GOSS MD (PCP) New Scripts Tramadol Hcl (TRAMADOL HCL) 50 Mg Tablet 50 MG PO Q6H PRN for PAIN, #10 TAB 0 Refills Prov: KANDACE EUBANKS DO 05/05/18 Patient Instructions: Back Pain (ED) Additional Instructions: Please follow-up in the next 24-48 hours with her primary care physician. Please return immediately to the emergency department if you develop weakness, recurrent falls, worsening back pain, urinary retention, bowel or bladder incontinence. Please take your medications as prescribed. KANDACE EUBANKS DO May 05, 2018 16:24
[2018-05-05] MEDS ORDERED: NS(*) 0.9% 1000 ML BAG 1,000 ML IV ONE (16:38)
[2018-05-05] MEDS ORDERED: fentaNYL CITR 100 MCG/2 ML AMP IVP ONE (16:40)
[2018-05-05] MEDS ORDERED: ONDANSETRON 4 MG/2 ML VIAL IVP ONE (16:40)
[2018-05-05] MEDS ORDERED: IOPAMIDOL 76% 100 ML INFUS BTL 100 ML ONE (17:06)
[2018-05-05 17:08] LABS: PLATELET COUNT, AUTOMATED 115 K/uL (150-450)
[2018-05-05 18:00] VITALS: BP 153/81
--- NOTE | 2018-05-05 18:55 | RADIOLOGY IMAGING REPORT ---
FACILITY: [facility] - [place] PATIENT NAME: Pato Gutierrez : 1940 MR: [id number] V: [id number] EXAM DATE: ORDERING PHYSICIAN: AKNDACE EUBANKS TECHNOLOGIST: Location: [facility] - [place] Patient: Pato Gutierrez : 1940 Visit/Account:[id number] Date of Sevice: 05/05/2018 COMPUTED TOMOGRAPHY OF THE Abdomen and Pelvis without CONTRAST INDICATION: Flank pain with burning sensation while urinating. TECHNIQUE: Contiguous axial 3.[address] images were obtained through the abdomen and pelvis without co ntrast. Coronal and sagittal reformatted images were submitted. COMPARISON: CT December 07, 2017. FINDINGS: Lung bases: Extensive atherosclerosis in the coronary arteries. 3 mm nodule at the right lung base re quires no specific follow-up. Liver and hepatic vasculature: Limited parenchymal evaluation without contrast but no apparent abnor mality. Gallbladder and bile ducts: Surgically absent gallbladder Spleen: Normal. Extensive splenic artery atherosclerosis. Pancreas: Mild pancreatic atrophy. Adrenals: Normal Kidneys, ureters and bladder: Symmetric enhancement. No hydronephrosis. The bladder is partially obs cured by streak artifact. The wall appears thickened anteriorly. Retroperitoneum and aorta: Extensive aortic atherosclerosis. No sterling aneurysm. GI tract, mesentery and peritoneum: No bowel obstruction. No free fluid or free air. No findings of d iverticulitis. The sigmoid colon and rectal regions are poorly evaluated due to streak artifact from hip prostheses. Prostate: Obscured Bones and soft tissues: No acute osseous abnormality. Severe disc and endplate degenerative findings at L2-3, L4-5, and L5-S1. There is a mesh anteriorly at midline presumably from prior hernia repair. IMPRESSION: 1. No urinary tract calculus or collecting system obstruction. 2. Suggestion of bladder wall thickening anteriorly. Correlate with cystoscopy. 3. Chronic findings as above. One of the following dose optimization techniques was utilized in the performance of this exam: Autom ated exposure control; adjustment of the mA and/or kV according to the patient's size; or use of an i terative reconstruction technique. Specific details can be referenced in the facility's radiology C T exam operational policy. Report Dictated By: Tara Patterson MD at 05/05/2018 6:38 PM Report E-Signed By: Tara Patterson MD at 05/05/2018 6:51 PM WSN:[id number]
[2018-05-05] MEDS ORDERED: TRAM-420 PO (18:57)
== END 2018-05-05 19:08 | disposition home or self-care (01) ==
LOC: ER 16:28
DX: M54.9 Dorsalgia, unspecified (principal); R30.9 Painful micturition, unspecified
CPT/HCPCS: 74177; 81001; 83605; 83690; 85025; 96361; 96374; 96375; 99284; J2405; J3010; J7030; Q9967; 82040; 82247; 82310; 82374; 82435; 82565; 82947; 84075; 84132; 84155; 84295; 84450; 84460; 84520

== ENCOUNTER → 2018-06-08 | Outpatient (CLI) | payer MEDICARE, OTHER ==
[2017-04-06 09:20] VITALS: BMI 26.2
[~2018-06-08] MED LIST changes: +TRAM-420 PO
== END ==
LOC: LAB 15:55
PROVIDERS: ATTEND Family Medicine
DX: Z01.812 Encounter for preprocedural laboratory examination (principal); I10 Essential (primary) hypertension
CPT/HCPCS: 36415; 82565

== ENCOUNTER → 2018-06-09 | Outpatient (CLI) | payer MEDICARE, OTHER ==
[2017-04-06 09:20] VITALS: BMI 26.2
--- NOTE | 2018-06-09 11:05 | RADIOLOGY IMAGING REPORT ---
[place] [facility] [place] NAME: Pato Gutierrez : 1940 MR: [id number] V: [id number] EXAM DATE: ORDERING PHYSICIAN: WERO GOSS TECHNOLOGIST: Location: [facility] - [place] Patient: Pato Gutierrez : 1940 Visit/Account:[id number] Date of Sevice: 06/09/2018 EXAMINATION: CT head angiogram HISTORY: Headaches TECHNIQUE: CT head angiogram was performed following the IV injection 75 mL [id number]. Sagittal and coronal MIP/MPR reformations generated. Stenosis of the internal carotid arteries calculated using NA SCET criteria. One of the following dose optimization techniques was utilized in the performance of this exam: autom ated exposure control; adjustment of the mA and/or kV according to patient size; or use of iterative reconstruction technique. Specific details can be referenced in the facility's radiology CT exam ope rational policy. COMPARISON: Head CT December 07, 2017 FINDINGS: Internal carotids: Bilateral cavernous and clinoid region calcified atherosclerotic plaque results i n no significant stenosis, otherwise unremarkable. [place]: Normal. KIMMY circulation: Azygos anterior cerebral artery variant. Congenitally diminutive right A1 segment. MCA circulation: Normal. ADULT [employer] circulation: Normal. Vertebro-basilar: Left vertebral artery calcified plaque results in short segment approximate 40% s tenosis just above the level of the foramen magnum. Diminutive right vertebral artery. Multifocal chr onic partial occlusion of the right intracranial vertebral artery. PICA/AICA/superior cerebellar: Normal. Venous sinuses: Normal. Intracranial structures and visible extracranial structures: Normal. Osseous structures/mastoid air cells/sinuses: Normal. IMPRESSION: 1. No intracranial aneurysm. 2. 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 3. Approximate 40% left intracranial vertebral artery short segment stenosis. 4. Otherwise normal for age intracranial arterial vasculature. Report Dictated By: Landen Chand MD at 06/09/2018 10:50 AM Report E-Signed By: Landen Chand MD at 06/09/2018 11:00 AM WSN:[id number]
== END ==
LOC: CT 08:32
PROVIDERS: ATTEND Family Medicine
DX: I66.8 Occlusion and stenosis of other cerebral arteries (principal)
CPT/HCPCS: 70496; Q9967

== ENCOUNTER 2018-07-31 10:25 | Emergency (ER) | payer MEDICARE, OTHER ==
[2017-04-06 09:20] VITALS: Wt 113.4 kg
--- NOTE | 2018-07-31 10:31 | ER Report ---
History and Physical Time Seen By MD: 10:30 HPI/ROS CHIEF COMPLAINT: Dizziness HISTORY OF PRESENT ILLNESS: Patient is an 78-year-old male who presents to the emergency department with his by EMS for episodes of dizziness this morning and episodes of dizziness over the past 2 weeks. Patient denies any chest pressure or chest pain he denies palpitations. He is a type II diabetic that requires insulin and reports by history coronary artery disease although never has had a heart attack or been stented. Patient currently feels well and is baseline. He does have some underlying dementia. He states that today he was having breakfast and felt dizzy and did not feel as if he was going to pass out. Because the symptoms were going on for the past days to weeks he decided to come to the emergency department for evaluation. REVIEW OF SYSTEMS: Constitutional: No fever, no chills. Eyes: No discharge. ENT: No sore throat. Cardiovascular: No chest pain, no palpitations. Respiratory: No cough, no shortness of breath. Gastrointestinal: No abdominal pain, no vomiting. Genitourinary: No hematuria. Musculoskeletal: No back pain. Skin: No rashes. Neurological: No headache. Dizziness Allergies: Coded Allergies: Penicillins (Verified Allergy, Mild, HIVES, 07/31/18) niacin (Verified Allergy, Mild, 07/31/18) Home Meds Active Scripts Tramadol Hcl (TRAMADOL HCL) 50 Mg Tablet, 50 MG PO Q6H PRN for PAIN, #10 TAB 0 Refills Prov:KANDACE EUBANKS DO 05/05/18 Insulin Npl/Insulin Lispro (HUMALOG MIX 75-25 KWIKPEN) 100 Unit/1 Ml Insuln.pen, 27 UNIT SQ TIDAC for 90 Days, #6 BOX 4 Refills RN reports patient is takine 27 units tid Prov:WERO GOSS MD 02/09/18 Ketoconazole (KETOCONAZOLE) 120 Ml Shampoo, 120 ML TP 2XW, #120 TUBE Prov:BENEDICT KIM V DO 01/13/18 Omeprazole (OMEPRAZOLE) 40 Mg Capsule.dr, 1 CAP PO QDAY PRN for heartburn for 90 Days, #90 CAP 4 Refills Prov:WERO GOSS MD 11/09/17 One Touch Ultra Test Strips (ONE TOUCH ULTRA TEST STRIPS) 1 Each Strip, 1 STRIP ASDIRECTED QID for 90 Days, #4 BOX 4 Refills Use 1 strip to test glucose QID Length of need: 99 Months Diagnosis:Insulin Dependent Diabetes Mellitus Prov:WERO GOSS MD 09/19/17 Pravastatin Sodium (PRAVASTATIN SODIUM) 20 Mg Tablet, 1 TAB PO HS for 90 Days, #90 TAB 4 Refills Prov:WERO GOSS MD 09/07/17 Tamsulosin Hcl (FLOMAX) 0.4 Mg Cap.er.24h, 1 CAP PO QDAY for 90 Days, #90 CAPSULE 4 Refills Prov:WERO GOSS MD 09/07/17 Trazodone Hcl (TRAZODONE HCL) 50 Mg Tablet, 50 MG PO QHS for 90 Days, #90 TAB 4 Refills Prov:WERO GOSS MD 09/07/17 Citalopram Hydrobromide (CITALOPRAM HBR) 10 Mg Tablet, 10 MG PO QDAY for 90 Days, #90 TAB 4 Refills Prov:WERO GOSS MD 09/07/17 Reported Medications Acetaminophen (TYLENOL EXTRA STRENGTH) 500 Mg Tablet, 2 TAB PO BID, CAP 04/10/18 Finasteride (FINASTERIDE) 5 Mg Tablet, 1 TAB PO QDAY 02/09/18 [Centrum Electrolyte] No Conflict Check, 1 TAB PO DAILY 02/09/18 Nitroglycerin (NITROGLYCERIN) 0.4 Mg Tab.subl, 1 TAB SL Q5MIN PRN for CHEST PAIN May repeat 3 times in 15 min 12/17/16 Multivitamin (MULTIVITAMINS) 1 Each Capsule, 1 EACH PO QDAY 12/17/16 Aspirin (ASPIRIN) 325 Mg Tablet, 1 TAB PO QDAY, TAB 10/20/15 Past Medical/Surgical History Past medical history for dementia, diabetic polyneuropathy, hyperlipidemia, slee p apnea but not using CPAP, hepatitis, type II diabetes, shingles, history of vascular surgery for stents for peripheral artery disease, history of right quad tendon repair, left toe resection., Kim the patient's daughter is the medical power of defense attorney. Review the electronic medical record further shows the patient is a full code. Hx Smoking: Yes Smoking Status: Former Smoker Exposure to Second Hand Smoke?: No Hx Substance Use Disorder: No Hx Alcohol Use: No Constitutional Vital Sign - Last 24 Hours 07/31/18 07/31/18 07/31/18 07/31/18 10:30 10:31 10:43 10:45 Temp 98.1 Pulse 57 Resp 16 B/P (MAP) 132/73 132/73 (92) 133/68 (89) Pulse Ox 95 O2 Delivery Room Air O2 Flow Rate 2.0 07/31/18 07/31/18 07/31/18 07/31/18 10:55 11:00 11:05 11:10 Pulse 53 47 49 Resp 17 13 14 B/P (MAP) 125/65 (85) Pulse Ox 96 97 94 07/31/18 07/31/18 07/31/18 07/31/18 11:15 11:30 11:35 11:40 Pulse 56 54 54 54 Resp 20 12 17 16 B/P (MAP) 168/83 (111) Pulse Ox 96 98 98 99 07/31/18 07/31/18 07/31/18 07/31/18 11:45 11:50 11:55 12:00 Pulse 49 48 54 54 Resp 8 17 17 17 B/P (MAP) 168/79 (108) Pulse Ox 98 97 97 97 07/31/18 07/31/18 07/31/18 07/31/18 12:05 12:20 12:25 12:30 Pulse 53 54 55 57 Resp 16 15 13 18 B/P (MAP) 172/85 (114) Pulse Ox 95 94 93 92 07/31/18 12:35 Pulse 55 Resp 14 Pulse Ox 92 Physical Exam General/Constitutional: Patient is awake, alert, nontoxic and in no acute respiratory distress. Head: Normocephalic and atraumatic. Eyes: Conjunctival clear, Pupils are equal and reactive to light. Extraocular muscles are intact and symmetrical. Sclera are clear and anicteric. Ears:External canals are clear. Tympanic membranes are clear with normal landmarks and light reflex. Nares: No rhinorrhea or bleeding. Turbinates are pink and moist. Oropharyngeal: Mucous membranes are moist. There is no pharyngeal erythema or exudate. There are no palatal petechiae. Uvula is midline and symmetrical. Neck: Supple, no adenopathy. Cardiovascular: Heart is regular rate and rhythm without audible murmurs, rubs or gallops. Pulmonary: Lungs are clear to auscultation bilaterally. There are no wheezes, rales, or rhonchi. Chest rise is symmetrical Abdomen: Soft, nontender, no guarding or peritoneal signs. Extremities: No gross deformities, No peripheral cyanosis. Able to move all 4 extremities. Neuro: Alert and oriented X3, Cranial nerves 2 thru 12 are intact and symmetrical. Skin: No rashes, skin is warm dry and well perfused. Medical Decision Making Data Points Result Diagram: 07/31/18 1021 07/31/18 1021 Laboratory Hematology Test 07/31/18 10:21 07/31/18 12:15 Red Blood Count 4.27 M/uL (4.00-5.60) Mean Corpuscular Volume 95.6 fL (80.0-96.0) Mean Corpuscular Hemoglobin 32.9 pg (26.0-33.0) Mean Corpuscular Hemoglobin Concent 34.4 g/dL (32.0-36.0) Red Cell Distribution Width 13.3 % (11.5-14.5) Mean Platelet Volume 8.0 fL (7.2-11.1) Neutrophils (%) (Auto) 67.0 % (39.4-72.5) Lymphocytes (%) (Auto) 23.6 % (17.6-49.6) Monocytes (%) (Auto) 7.1 % (4.1-12.4) Eosinophils (%) (Auto) 1.7 % (0.4-6.7) Basophils (%) (Auto) 0.6 % (0.3-1.4) Nucleated RBC Relative Count (auto) 0.1 /100WBC Neutrophils # (Auto) 3.1 K/uL (2.0-7.4) Lymphocytes # (Auto) 1.1 K/uL (1.3-3.6) Monocytes # (Auto) 0.3 K/uL (0.3-1.0) Eosinophils # (Auto) 0.1 K/uL (0.0-0.5) Basophils # (Auto) 0.0 K/uL (0.0-0.1) Nucleated RBC Absolute Count (auto) 0.00 K/uL Sodium Level 142 mmol/L (137-145) Potassium Level 4.7 mmol/L (3.5-5.0) Chloride Level 105 mmol/L (98-107) Carbon Dioxide Level 26 mmol/L (22-30) Blood Urea Nitrogen 18 mg/dl (9-21) Creatinine 0.90 mg/dl (0.66-1.25) Glomerular Filtration Rate Calc > 60.0 Random Glucose 213 mg/dl (75-110) Calcium Level 9.1 mg/dl (8.4-10.2) Magnesium Level 2.0 mg/dl (1.7-2.2) Total Bilirubin 0.6 mg/dl (0.2-1.3) Aspartate Amino Transf (AST/SGOT) 25 U/L (0-35) Alanine Aminotransferase (ALT/SGPT) 48 U/L (0-56) Alkaline Phosphatase 72 U/L (0-126) Troponin I < 0.012 ng/ml Total Protein 6.4 g/dl (6.3-8.2) Albumin 4.1 g/dl (3.5-5.0) Urine Color Yellow Urine Clarity Slightly-cloudy Urine pH 6.0 pH (4.8-9.5) Urine Specific [place] 1.013 Urine Protein Negative mg/dL (NEGATIVE) Urine Glucose (UA) Negative mg/dL (NEGATIVE) Urine Ketones Negative mg/dL (NEGATIVE) Urine Blood Negative (NEGATIVE) Urine Nitrite Negative (NEGATIVE) Urine Bilirubin Negative (NEGATIVE) Urine Urobilinogen Negative mg/dL (0.2-1.9) Urine Leukocyte Esterase Negative (NEGATIVE) Urine RBC None /HPF (0-2/HPF) Urine WBC 4 /HPF (0-5/HPF) Urine Squamous Epithelial Cells Many /LPF (</=FEW) Urine Bacteria Negative /HPF (NONE-FEW) Urine Mucus None /HPF (NONE-FEW) Chemistry Test 07/31/18 10:21 07/31/18 12:15 White Blood Count 4.6 k/uL (4.5-11.0) Red Blood Count 4.27 M/uL (4.00-5.60) Hemoglobin 14.0 g/dL (14.0-18.0) Hematocrit 40.8 % (42.0-52.0) Mean Corpuscular Volume 95.6 fL (80.0-96.0) Mean Corpuscular Hemoglobin 32.9 pg (26.0-33.0) Mean Corpuscular Hemoglobin Concent 34.4 g/dL (32.0-36.0) Red Cell Distribution Width 13.3 % (11.5-14.5) Platelet Count 103 K/uL (150-450) Mean Platelet Volume 8.0 fL (7.2-11.1) Neutrophils (%) (Auto) 67.0 % (39.4-72.5) Lymphocytes (%) (Auto) 23.6 % (17.6-49.6) Monocytes (%) (Auto) 7.1 % (4.1-12.4) Eosinophils (%) (Auto) 1.7 % (0.4-6.7) Basophils (%) (Auto) 0.6 % (0.3-1.4) Nucleated RBC Relative Count (auto) 0.1 /100WBC Neutrophils # (Auto) 3.1 K/uL (2.0-7.4) Lymphocytes # (Auto) 1.1 K/uL (1.3-3.6) Monocytes # (Auto) 0.3 K/uL (0.3-1.0) Eosinophils # (Auto) 0.1 K/uL (0.0-0.5) Basophils # (Auto) 0.0 K/uL (0.0-0.1) Nucleated RBC Absolute Count (auto) 0.00 K/uL Glomerular Filtration Rate Calc > 60.0 Calcium Level 9.1 mg/dl (8.4-10.2) Magnesium Level 2.0 mg/dl (1.7-2.2) Total Bilirubin 0.6 mg/dl (0.2-1.3) Aspartate Amino Transf (AST/SGOT) 25 U/L (0-35) Alanine Aminotransferase (ALT/SGPT) 48 U/L (0-56) Alkaline Phosphatase 72 U/L (0-126) Troponin I < 0.012 ng/ml Total Protein 6.4 g/dl (6.3-8.2) Albumin 4.1 g/dl (3.5-5.0) Urine Color Yellow Urine Clarity Slightly-cloudy Urine pH 6.0 pH (4.8-9.5) Urine Specific [place] 1.013 Urine Protein Negative mg/dL (NEGATIVE) Urine Glucose (UA) Negative mg/dL (NEGATIVE) Urine Ketones Negative mg/dL (NEGATIVE) Urine Blood Negative (NEGATIVE) Urine Nitrite Negative (NEGATIVE) Urine Bilirubin Negative (NEGATIVE) Urine Urobilinogen Negative mg/dL (0.2-1.9) Urine Leukocyte Esterase Negative (NEGATIVE) Urine RBC None /HPF (0-2/HPF) Urine WBC 4 /HPF (0-5/HPF) Urine Squamous Epithelial Cells Many /LPF (</=FEW) Urine Bacteria Negative /HPF (NONE-FEW) Urine Mucus None /HPF (NONE-FEW) Urinalysis Test 07/31/18 12:15 Urine Color Yellow Urine Clarity Slightly-cloudy Urine pH 6.0 pH (4.8-9.5) Urine Specific Ram[place] 1.013 Urine Protein Negative mg/dL (NEGATIVE) Urine Glucose (UA) Negative mg/dL (NEGATIVE) Urine Ketones Negative mg/dL (NEGATIVE) Urine Blood Negative (NEGATIVE) Urine Nitrite Negative (NEGATIVE) Urine Bilirubin Negative (NEGATIVE) Urine Urobilinogen Negative mg/dL (0.2-1.9) Urine Leukocyte Esterase Negative (NEGATIVE) Urine RBC None /HPF (0-2/HPF) Urine WBC 4 /HPF (0-5/HPF) Urine Squamous Epithelial Cells Many /LPF (</=FEW) Urine Bacteria Negative /HPF (NONE-FEW) Urine Mucus None /HPF (NONE-FEW) EKG/Imaging EKG Interpretation EKG today shows sinus bradycardia first-degree AV block with left axis deviation. Ventricular rate is 54 bpm however on first crusher patient does have episodes of 2-3 beats of positive with return to sinus bradycardia and first-degree AV block. This is compared to an EKG from 01/13/2018 which at that time showed an accelerated junctional rhythm at 83 bpm. EKG from 12/21/2017 showed sinus rhythm with a ventricular rate of 61 bpm with first-degree AV block. Monitor Interpretation: Sinus Bradycardia ED Course/Re-evaluation Clinical Indication for ER IV: IV Access ED Course 07/31/2018 10:52:42 am patient with what appears to be symptomatic bradycardia EKG shows sinus bradycardia with a ventricular rate of 54 bpm however continuous monitoring the emergency department did show episodes of asymptomatic cause. Patient currently does not feel dizzy he denies having prior history of chest pain chest pressure or current chest pain or chest pressure. Will be cardiac workup including noncontrast CT of the head. Likely consult with cardiology based on EKG. 07/31/2018 12:19:07 pm the patient ambulated around the emergency department with pulse ox and heart rate monitor. Patient remained symptom-free with ambulation heart rate was in the mid 70s with ambulation. Awaiting consult with cardiology from [facility]. 07/31/2018 12:43:15 pm I spoke with Dr Perez who is on-call for cardiolog y at [facility]. He has personally reviewed all the EKGs and rhythm strips I sent him. He agrees that the patient is in first-degree AV block with sinus bradycardia no evidence of any other concerning dysrhythmias. His ED course as well as blood work and imaging studies were also discussed. He feels that the best course of action is for the patient to avoid any AV milla blocking agents (which he is not currently taking); where a 48 hour Holter monitor and subsequently follow-up with cardiology. Decision to Disposition Date: Jul 31, 2018 Decision to Disposition Time: 13:02 Depart Departure Latest Vital Signs Vital Signs Date Time Temp Pulse Resp B/P (MAP) Pulse Ox O2 Delivery O2 Flow Rate FiO2 07/31/18 12:35 55 14 92 07/31/18 12:30 172/85 (114) 07/31/18 10:45 2.0 07/31/18 10:30 98.1 Room Air Impression: Primary Impression: Dizziness Additional Impression: Symptomatic bradycardia Condition: Improved Disposition: HOME OR SELF-CARE Referrals: WERO GOSS MD (PCP) call to schedule a follow up apppointment in the next 2-4 weeks Patient Instructions: Dizziness (GEN) Additional Instructions: Return to the emergency department immediately if he developed chest pain, if you have episodes where he passed out, if he developed any focal weakness or difficulty with speech. Problem Qualifiers QUIQUE CUADRA MD Jul 31, 2018 10:31
[2018-07-31] MEDS ORDERED: NS(*) 0.9% 1000 ML BAG 1,000 ML IV ONE (10:34)
[2018-07-31 10:43] LABS: PLATELET COUNT, AUTOMATED 103 K/uL (150-450)
--- NOTE | 2018-07-31 10:48 | EKG ---
[place] [facility] [place] NAME: DANIELLE REICH : [id number] MR: [id number] V: [id number] EXAM DATE: ORDERING PHYSICIAN: QUIQUE CUADRA TECHNOLOGIST: DAVID Test Reason : LIGHT HEADED Blood Pressure : / mmHG Vent. Rate : 054 BPM Atrial Rate : 054 BPM P-R Int : 302 ms QRS Dur : 092 ms QT Int : 452 ms P-R-T Axes : 025 -34 019 degrees QTc Int : 428 ms Sinus bradycardia with 1st degree AV block Left axis deviation Abnormal ECG When compared with ECG of 13-JAN-2018 17:46, Sinus rhythm has replaced Junctional rhythm Vent. rate has decreased BY 29 BPM Criteria for Septal infarct are no longer present Confirmed by ABDI FRASER ([id number]) on 07/31/2018 5:13:28 PM Referred By: VENECIA Confirmed By:ABDI FRASER
--- NOTE | 2018-07-31 11:54 | RADIOLOGY IMAGING REPORT ---
FACILITY: [facility] PATIENT NAME: Pato Gutierrez : 1940 MR: [id number] V: [id number] EXAM DATE: ORDERING PHYSICIAN: QUIQUE CUADRA TECHNOLOGIST: Location: [facility] - [place] Patient: Pato Gutierrez : 1940 Visit/Account:[id number] Date of Sevice: 07/31/2018 EXAMINATION: CT Head without intravenous contrast HISTORY: Dizziness. TECHNIQUE: Axial images were obtained from the skull base to the vertex without intravenous contrast . Sagittal and coronal reformatted images are also submitted. One of the following dose optimization techniques was utilized in the performance of this exam: Autom ated exposure control; adjustment of the mA and/or kV according to the patient's size; or use of an i terative reconstruction technique. Specific details can be referenced in the facility's radiology C T exam operational policy. COMPARISON: 12/07/2017. FINDINGS: Brain volume: Stable mild to moderate generalized brain parenchymal volume loss. Ventricles: Negative. Acute ischemic changes: None. Hemorrhage: None. Masses / edema: None. Russell-white: Negative. White matter: Stable mild hyperdensity in the periventricular white matter, nonspecific but most lik evelia representing chronic microvascular ischemia. Vessels: Calcified plaque in the carotid siphons and vertebral arteries. Normal density in the dura l venous sinuses. Extra-axial: Negative. Calvarium / skull base: Bilateral temporomandibular joint arthritis. Visualized sinuses / orbits: Negative. IMPRESSION: No acute intracranial abnormality. Stable chronic findings. Report Dictated By: Stanford Torrez MD at 07/31/2018 11:45 AM Report E-Signed By: Stnaford Torrez MD at 07/31/2018 11:50 AM WSN:[id number]
--- NOTE | 2018-07-31 11:55 | RADIOLOGY IMAGING REPORT ---
FACILITY: [facility] PATIENT NAME: Pato Gutierrez : 1940 MR: [id number] V: [id number] EXAM DATE: ORDERING PHYSICIAN: QUIQUE CUADRA TECHNOLOGIST: Location: [facility] [place] Patient: Pato Gutierrez : 1940 Visit/Account:[id number] Date of Sevice: 07/31/2018 CHEST SINGLE AP INDICATION: dizziness COMPARISON: None available FINDINGS: Heart size within normal limits. There is no focal infiltrate or lobar consolidation. There is no pneumothorax or pleural effusion. IMPRESSION: 1. No acute cardiopulmonary process. Report Dictated By: Derek Arce at 07/31/2018 11:49 AM Report E-Signed By: Derek Arce at 07/31/2018 11:49 AM WSN:[email or web address]
[2018-07-31 12:30] VITALS: BP 172/85
--- NOTE | 2018-08-02 20:29 | RT HOLTER TEST ---
[place] [facility] [place] DANIELLE REICH : [id number] MR: [id number] V: [id number] EXAM DATE: ORDERING PHYSICIAN: QUIQUE CUADRA TECHNOLOGIST: CAPRI Hook-up date: 2018-07-31 13:10:00 Duration: 45:02:00 Test Indications: SYMPTOMATIC BRADYCARDIA Medications: N/A 140356 QRS complexes 40 Ventricular ectopics which represent <1 % of total QRS comp. 77 Supraventricular ectopics which represent <1 % of total QRS comp. * Paced QRS complexes which represent % of total QRS comp. VENTRICULAR ECTOPY 36 Isolated 0 Bigeminal Cycles 2 Couplets 0 Runs 0 Beats in Runs * Beats LONGEST at * BPM at :: -- * Beats FASTEST at * BPM at :: -- SUPRAVENTRICULAR ECTOPY 77 Isolated 0 Couplets 0 Runs 0 Beats in Runs * Beats LONGEST at * BPM at :: -- * Beats FASTEST at * BPM at :: -- HEART RATES 37 MIN at 02:40:00 2018-08-01 67 AVG 127 MAX at 15:00:59 2018-08-01 LONGEST RR 2.352 secs at 03:58:35 2018-08-01 S-T LEVELS Channel 1 -12.800 mm MIN at 13:10:00 2018-07-31 -12.800 mm MAX at 13:10:00 2018-07-31 Channel 3 -12.800 mm MIN at 13:10:00 2018-07-31 -12.800 mm MAX at 13:10:00 2018-07-31 Underlying rhythm is sinus rhythm with first degree AV block. Multiple episodes of sinus bradycardia with first degree AV block with heart rates less than 50bpm an d pauses of more than two (2) seconds occurred during recording. Most of these appear to be during usual sleeping hours. Rare supraventricular ectopy was recorded. No couplets, triplets, or runs. Rare ventricular ectopy was recorded. Some of these events recorded are actually aberrantly conducted complexes rather than ventricular ectopy. No runs were recorded. Confirmed by TOMAS NIX ([id number]) on 08/02/2018 8:29:29 PM Referred By: Overread By: TOMAS NIX
== END 2018-07-31 13:32 | disposition home or self-care (01) ==
LOC: ER 10:31
DX: R42 Dizziness and giddiness (principal); R00.1 Bradycardia, unspecified; I44.0 Atrioventricular block, first degree
CPT/HCPCS: 70450; 71045; 81001; 83735; 84443; 84484; 85025; 93005; 96360; 99284; J7030; 82040; 82247; 82310; 82374; 82435; 82565; 82947; 84075; 84132; 84155; 84295; 84450; 84460; 84520

== ENCOUNTER → 2018-07-31 | Outpatient (CLI) | payer MEDICARE, OTHER ==
[2017-04-06 09:20] VITALS: BMI 26.2
[~2018-07-31] MED LIST changes: -TRAZ50TA34 PO; +TRAZ50TA52 PO
== END ==
LOC: AMB 10:05
PROVIDERS: ATTEND Nurse Practitioner
DX: E11.65 Type 2 diabetes mellitus with hyperglycemia (principal); R53.1 Weakness
CPT/HCPCS: A0425; A0427

== ENCOUNTER → 2018-08-29 | Outpatient (CLI) | payer MEDICARE, OTHER ==
[2017-04-06 09:20] VITALS: BMI 26.2
== END ==
LOC: LAB 08:51
PROVIDERS: ATTEND Urology
DX: N40.1 Benign prostatic hyperplasia with lower urinary tract symptoms (principal)
CPT/HCPCS: 36415; 84153

== ENCOUNTER → 2018-09-04 | Outpatient (CLI) | payer MEDICARE, OTHER ==
[2017-04-06 09:20] VITALS: BMI 26.2
[~2018-09-04] MED LIST changes: +OMEP-126 PO
== END ==
LOC: LAB 14:12
PROVIDERS: ATTEND Family Medicine
DX: E11.9 Type 2 diabetes mellitus without complications (principal)
CPT/HCPCS: 36415; 83036